=== PATIENT | male | born 1950 | race Caucasian/White ===

== ENCOUNTER 2023-01-13 23:38 | Emergency (ER) | payer OTHER ==
--- NOTE | 2023-01-14 01:43 | ER ---
Nurse's Notes [facility] Name: Benjamin Jackson Age: 72 yrs Sex: Male : 1950 Arrival Date: 01/13/2023 Time: 23:39 Bed 2 Private MD: Diagnosis: Hypertensive heart disease without heart failure-Poorly controlled Presentation: 01/14 00:12 Chief complaint: Patient states: I have been on blood pressure medications for 4 years. kd3 For a while it was making my blood pressure low so i was cutting them in half and my next prescription I was taking 25 mg. then i started just taking them when my blood pressure was high. Last night it started to be real high and its been all over the place. Coronavirus screen: Vaccine status: Patient reports being unvaccinated. Ebola Screen: No symptoms or risks identified at this time. Initial Sepsis Screen: Does the patient meet any 2 criteria? No. Patient's initial sepsis screen is negative. Does the patient have a suspected source of infection? No. Patient's initial sepsis screen is negative. Risk Assessment: Do you want to hurt yourself or someone else? Patient reports no desire to harm self or others. Onset of symptoms was January 14, 2023. 00:12 Method Of Arrival: Ambulatory kd3 00:12 Acuity: SANJIV 4 kd3 Triage Assessment: 00:15 General: Appears in no apparent distress. Behavior is calm, cooperative. Pain: Denies kd3 pain. Historical: - Allergies: 00:15 Iodine; kd3 - Home Meds: 00:15 losartan 25 mg oral tab [Active]; kd3 - PMHx: 00:15 Hernia; Kidney stones; Hypertensive disorder; kd3 - Immunization history:: Adult Immunizations up to date. - Social history:: Smoking status: unknown. Screenin:49 [facility] ED Fall Risk Assessment (Adult) History of falling in the last 3 months, jb4 including since admission No falls in past 3 months (0 pts) Confusion or Disorientation No (0 pts) Score/Fall Risk Level 0 - 2 = Low Risk Oriented to surroundings, Maintained a safe environment. Abuse screen: Denies threats or abuse. Nutritional screening: No deficits noted. Tuberculosis screening: No symptoms or risk factors identified. Assessment: 01:49 General: Appears in no apparent distress. comfortable, Behavior is calm, cooperative, jb4 appropriate for age. Pain: Denies pain. Neuro: Level of Consciousness is awake, alert, obeys commands, confused, Oriented to person, place, time, situation. Cardiovascular: Patient's skin is warm and dry. Respiratory: Airway is patent Respiratory effort is even, unlabored, Respiratory pattern is regular, symmetrical. GI: No signs and/or symptoms were reported involving the gastrointestinal system. : No signs and/or symptoms were reported regarding the genitourinary system. EENT: No signs and/or symptoms were reported regarding the EENT system. Derm: Skin is intact, Skin is pink, warm \T\ dry. Musculoskeletal: Circulation, motion, and sensation intact. Range of motion: intact in all extremities. Vital Signs: 00:11 BP 176 / 87; Pulse 66; Resp 17; Temp 98.2(O); Pulse Ox 100% ; Weight 57.15 kg; Height 5 kd3 ft. 6 in. (167.64 cm); Pain 0/10; 00:57 BP 175 / 91; Pulse 60; Resp 16; jb4 01:00 BP 159 / 81; Pulse 54; Resp 16 S; jb4 01:05 BP 162 / 81; Pulse 53; Resp 18 S; jb4 01:10 BP 158 / 84; Pulse 57; Resp 17 S; jb4 01:15 BP 150 / 82; Pulse 53; Resp 16 S; jb4 01:20 BP 154 / 79; Pulse 53; Resp 14 S; jb4 00:11 Body Mass Index 20.34 (57.15 kg, 167.64 cm) kd3 ED Course: 01/13 23:39 Patient arrived in ED. ja2 23:49 Alfonso Ac MD is Attending Physician. kdr 01/14 00:15 Triage completed. kd3 00:15 Arm band placed on left wrist. kd3 00:47 Solis Umanzor, TIFFANIE is Primary Nurse. jb4 01:49 Patient has correct armband on for positive identification. Bed in low position. Call jb4 light in reach. Side rails up X 1. NIBP on. 01:49 No provider procedures requiring assistance completed. Patient did not have IV access jb4 during this emergency room visit. Administered Medications: No medications were administered Medication: 01:49 VIS not applicable for this client. jb4 Outcome: 01:42 Discharge ordered by . kdr 01:49 Discharged to home ambulatory. jb4 01:49 Condition: stable 01:49 Discharge instructions given to patient, Instructed on discharge instructions, follow up and referral plans. medication usage, Demonstrated understanding of instructions, follow-up care, medications, Prescriptions given X 1. 01:51 Patient left the ED. jb4 Signatures: Alfonso Ac MD MD kdr Bryson, James RN RN jb4 Swetha Washington Kyli RN RN kd3
--- NOTE | 2023-01-14 01:43 | EDPHYS ---
Physician Documentation [facility] Name: Benjamin Jackson Age: 72 yrs Sex: Male : 1950 Arrival Date: 01/13/2023 Time: 23:39 Bed 2 Private MD: ED Physician Alfonso Ac HPI: 01/14 01:28 This 72 yrs old Male presents to ER via Ambulatory with complaints of High Blood kdr Pressure. 01:28 Patient presents to the ED concerned about his ongoing elevated blood pressure. He is kdr not symptomatic but takes his blood pressure several times a day. This evening he was noted to be elevated. Patient recently had received instructions to alter his medications. Patient has been on losartan for a number of years initially started 50 mg a day and then subsequently cut to 25 and then told to only take it when he needed it. Over the last few weeks, his blood pressure has been very labile and seemingly independent or/overly dependent on the blood pressure medication.. Onset: The symptoms/episode began/occurred gradually, 2 week(s) ago. Severity of symptoms: At their worst the symptoms were very mild mild in the emergency department the symptoms are unchanged. The patient has experienced similar episodes in the past, chronically. The patient has been recently seen by a physician: Patient is routinely seen at [facility] for [facility] medical care and they have been advising him on the control of his blood pressure and medication administration. Historical: - Allergies: 00:15 Iodine; kd3 - Home Meds: 00:15 losartan 25 mg oral tab [Active]; kd3 - PMHx: 00:15 Hernia; Kidney stones; Hypertensive disorder; kd3 - Immunization history:: Adult Immunizations up to date. - Social history:: Smoking status: unknown. ROS: 01:28 Constitutional: Negative for fever, chills, and weight loss, Eyes: Negative for injury, kdr pain, redness, and discharge, ENT: Negative for injury, pain, and discharge, Neck: Negative for injury, pain, and swelling, Cardiovascular: Negative for chest pain, palpitations, and edema, Respiratory: Negative for shortness of breath, cough, wheezing, and pleuritic chest pain, Abdomen/GI: Negative for abdominal pain, nausea, vomiting, diarrhea, and constipation, Back: Negative for injury and pain, : Negative for injury, bleeding, discharge, and swelling, MS/Extremity: Negative for injury and deformity, Skin: Negative for injury, rash, and discoloration, Neuro: Negative for headache, weakness, numbness, tingling, and seizure activity. Psych: Negative for depression, anxiety, suicide ideation, homicidal ideation, and hallucinations, Allergy/Immunology: Negative for hives, rash, and allergies, Endocrine: Negative for neck swelling, polydipsia, polyuria, polyphagia, and marked weight changes, Hematologic/Lymphatic: Negative for swollen nodes, abnormal bleeding, and unusual bruising. Exam: 01:28 Constitutional: This is a well developed, well nourished patient who is awake, alert, kdr and in no acute distress. Head/Face: Normocephalic, atraumatic. Eyes: Pupils equal round and reactive to light, extra-ocular motions intact. Lids and lashes normal. Conjunctiva and sclera are non-icteric and not injected. Cornea within normal limits. Periorbital areas with no swelling, redness, or edema. Neck: Trachea midline, no thyromegaly or masses palpated, and no cervical lymphadenopathy. Supple, full range of motion without nuchal rigidity, or vertebral point tenderness. No Meningismus. Chest/axilla: Normal chest wall appearance and motion. Nontender with no deformity. No lesions are appreciated. Cardiovascular: Regular rate and rhythm with a normal S1 and S2. No gallops, murmurs, or rubs. Normal PMI, no JVD. No pulse deficits. Respiratory: Lungs have equal breath sounds bilaterally, clear to auscultation and percussion. No rales, rhonchi or wheezes noted. No increased work of breathing, no retractions or nasal flaring. Abdomen/GI: Soft, non-tender, with normal bowel sounds. No distension or tympany. No guarding or rebound. No evidence of tenderness throughout. Back: No spinal tenderness. No costovertebral tenderness. Full range of motion. Skin: Warm, dry with normal turgor. Normal color with no rashes, no lesions, and no evidence of cellulitis. MS/ Extremity: Pulses equal, no cyanosis. Neurovascular intact. Full, normal range of motion. Neuro: Awake and alert, GCS 15, oriented to person, place, time, and situation. Cranial nerves II-XII grossly intact. Motor strength 5/5 in all extremities. Sensory grossly intact. Cerebellar exam normal. Normal gait. Psych: Awake, alert, with orientation to person, place and time. Behavior, mood, and affect are within normal limits. Vital Signs: 00:11 BP 176 / 87; Pulse 66; Resp 17; Temp 98.2(O); Pulse Ox 100% ; Weight 57.15 kg; Height 5 kd3 ft. 6 in. (167.64 cm); Pain 0/10; 00:57 BP 175 / 91; Pulse 60; Resp 16; jb4 01:00 BP 159 / 81; Pulse 54; Resp 16 S; jb4 01:05 BP 162 / 81; Pulse 53; Resp 18 S; jb4 01:10 BP 158 / 84; Pulse 57; Resp 17 S; jb4 01:15 BP 150 / 82; Pulse 53; Resp 16 S; jb4 01:20 BP 154 / 79; Pulse 53; Resp 14 S; jb4 00:11 Body Mass Index 20.34 (57.15 kg, 167.64 cm) kd3 MDM: 01:28 Data reviewed: vital signs, nurses notes. Consideration of Admission/Observation kdr Patient was admitted/placed on observation. The patient did not warrant admission. Management of patient was discussed with the following: Discussed with the patient. 01:42 Patient medically screened. kdr 01/14 00:33 Order name: EKG; Complete Time: 00:33 kdr Administered Medications: No medications were administered Disposition Summary: 01/14/23 01:42 Discharge Ordered Location: Home kdr Problem: new kdr Symptoms: have improved kdr Condition: Stable kdr Diagnosis - Hypertensive heart disease without heart failure - Poorly controlled kdr Followup: kdr - With: Private Physician - When: 2 - 3 days - Reason: If symptoms return, Further diagnostic work-up, Recheck today's complaints, Continuance of care, Re-evaluation by your physician Discharge Instructions: - Discharge Summary Sheet kdr - Hypertension, Adult, [id number] kdr - How to Take Your Blood Pressure, [id number] kdr Forms: - Medication Reconciliation Form kdr - Thank You Letter kdr Prescriptions: - Lisinopril 10 mg Oral Tablet - take 1 tablet by ORAL route once daily; 20 tablet; Refills: 0, Product kdr Selection Permitted Signatures: Dispatcher [employer] EDMT Rittger, Alfonso, MD MD kdr Misty, Emily, RN RN kd3 Corrections: (The following items were deleted from the chart) 00:54 00:33 Cardiac monitoring ordered. [facility] jb4 00: 00:33 EKG - Nurse/Tech ordered. [facility] jb4 00:33 IV Saline Lock ordered. [facility] jb4 00:33 Labs collected and sent ordered. [facility] 00:33 O2 Sat Monitoring ordered. [facility] 00:33 Oxygen Per Protocol ordered. [facility] 00:33 Chest Single View+RAD.RAD.BRZ ordered. EDMS EDMS 01: 00:33 BASIC METABOLIC PANEL+C.LAB.BRZ ordered. EDMS EDMS 01: 00:33 CBC+H.LAB.BRZ ordered. EDMS EDMS 01: 00:33 PROBNP+C.LAB.BRZ ordered. EDMS EDMS 01: 00:33 Troponin High Sensitivity+C.LAB.BRZ ordered. EDMS EDMS
[2023-01-14 02:08] VITALS: TEMP 98.2; O2SAT 100
[2023-01-14 02:14] VITALS: BP 154/79
== END 2023-01-14 01:51 | disposition home or self-care (01) ==
LOC: ER 23:38
DX: I11.9 Hypertensive heart disease without heart failure (principal); I10 Essential (primary) hypertension; Z91.048 Other nonmedicinal substance allergy status
CPT/HCPCS: 99282

== ENCOUNTER 2024-04-30 19:35 | Observation (INO) | payer OTHER ==
[2024-04-30 20:15] LABS: Absolute Eosinophils 0.2 K/uL (0-0.5); Absolute Lymphocytes (CBC) 1.9 K/uL (0.7-4.9); Absolute Monocytes 0.4 K/uL (0.1-1.3); Absolute Neutrophil 3.4 K/uL (1.8-8.0); Basophils % 0.4 % (0-1.3); Eosinophils % 3.9 % (0-4.4); Hematocrit 35.8 % (39.6-49.0); Lymphocytes % 32.2 % (15.3-44.8); MCH 32.3 pg (27.0-35.0); MCHC 33.4 g/dL (32.0-36.0); MCV 96.6 fL (80-100); MPV 6.9 fL (7.6-11.3); Monocytes % 6.7 % (3.3-12.3); Neutrophils % 56.8 % (41.7-73.7); Platelets 199 thou/uL (152-406); Red Cell Distribution Width 14.5 % (12.1-15.2)
[2024-04-30 21:02] LABS: AST/SGOT 20 U/L (15-37); Albumin 3.6 g/dL (3.4-5.0); Albumin/Globulin Ratio 0.9 (1.1-1.8); Alkaline Phosphatase 59 U/L (45-117); Anion Gap 5.9 mEq/L (5.0-15.0); BUN Blood Urea Nitrogen 16 mg/dL (7-18); Bicarbonate 27 mEq/L (21-32); Bilirubin Total 0.4 mg/dL (0.2-1.0); Globulin 3.8 g/dL (2.3-3.5); Glomerular Filtration Rate 62 ml/min (=/>90); Glucose Level 144 mg/dL (74-106); Magnesium 2.1 mg/dL (1.6-2.4); Potassium 3.9 mEq/L (3.5-5.1); Protein, Total 7.4 g/dL (6.4-8.2); Sodium Level 134 mEq/L (136-145)
[2024-04-30 21:03] LABS: ALT/SGPT < 14 U/L (16-61); Bilirubin Direct < 0.2 mg/dL (0-0.2); Bilirubin Indirect, Calculated 0.2 mg/dL (0.2-0.8)
[2024-04-30 21:09] LABS: Troponin High Sensitivity 124.6 pg/mL (<58.9)
--- NOTE | 2024-04-30 21:20 | RAD REPORT ---
EXAM DESCRIPTION: [place] Single View04/30/2024 8:59 pm CLINICAL HISTORY: Arrythmia COMPARISON: none FINDINGS: The lungs appear clear of acute infiltrate. The heart is normal size IMPRESSION: No acute abnormalities displayed
--- NOTE | 2024-04-30 22:38 | EDPHYS ---
Physician Documentation [facility] Name: Benjamin Jackson Age: 73 yrs Sex: Male : 1950 Arrival Date: 04/30/2024 Time: 19:35 Bed 18 Private MD: ED Physician Isac Rollins HPI: 04/30 20:01 This 73 yrs old Male presents to ER via Ambulatory with complaints of Irregular Pulse, rt High Blood Pressure. 20:01 Patient presents to the ED with reports of an irregular pulse. The patient states that rt his blood pressure cuff told him that he had a regular pulse, states that he can feel occasional skipped beats when he was feeling his pulse. Denies any chest pain or shortness of breath or other acute symptoms. Symptoms are mild in severity, no other aggravating alleviating factors.. Historical: - Allergies: 19:43 Iodine; as6 - PMHx: 19:43 Hernia; Hypertensive disorder; Kidney stones; as6 - PSHx: 19:43 leg (Kidney stones); as6 - Immunization history:: Adult Immunizations up to date. - Infectious Disease History:: Denies. - Social history:: Smoking status: Patient reports the use of cigarette tobacco products, cigars. - Family history:: not pertinent. ROS: 20:01 Constitutional: Negative for fever, chills, and weight loss, Respiratory: Negative for rt shortness of breath, cough, wheezing, and pleuritic chest pain, Abdomen/GI: Negative for abdominal pain, nausea, vomiting, diarrhea, and constipation, MS/Extremity: Negative for injury and deformity, Skin: Negative for injury, rash, and discoloration, Neuro: Negative for headache, weakness, numbness, tingling, and seizure, Psych: Negative for depression, anxiety, suicide ideation, homicidal ideation, and hallucinations, 20:01 Cardiovascular: Positive for palpitations, Negative for chest pain, Exam: 20:01 Constitutional: This is a well developed, well nourished patient who is awake, alert, rt and in no acute distress. Head/Face: Normocephalic, atraumatic. Chest/axilla: Normal chest wall appearance and motion. Nontender with no deformity. No lesions are appreciated. Cardiovascular: Regular rate and rhythm with a normal S1 and S2. No gallops, murmurs, or rubs. Normal PMI, no JVD. No pulse deficits. Respiratory: Lungs have equal breath sounds bilaterally, clear to auscultation and percussion. No rales, rhonchi or wheezes noted. No increased work of breathing, no retractions or nasal flaring. Abdomen/GI: Soft, non-tender, with normal bowel sounds. No distension or tympany. No guarding or rebound. No evidence of tenderness throughout. Skin: Warm, dry with normal turgor. Normal color with no rashes, no lesions, and no evidence of cellulitis. MS/ Extremity: Pulses equal, no cyanosis. Neurovascular intact. Full, normal range of motion. Neuro: Awake and alert, GCS 15, oriented to person, place, time, and situation. Cranial nerves II-XII grossly intact. Motor strength 5/5 in all extremities. Sensory grossly intact. Cerebellar exam normal. Normal gait. Psych: Awake, alert, with orientation to person, place and time. Behavior, mood, and affect are within normal limits. 20:06 ECG was reviewed by the Attending Physician. rt Vital Signs: 19:44 BP 154 / 72; Pulse 67; Resp 18 S; Temp 98.1(TE); Pulse Ox 100% on R/A; Weight 56.25 kg as6 (R); Height 5 ft. 6 in. (R); Pain 0/10; 21:30 BP 179 / 83; Pulse 53; Resp 14 S; Pulse Ox 100% on R/A; jw7 22:30 BP 160 / 86; Pulse 56; Resp 12 S; Pulse Ox 100% on R/A; jw7 23:18 BP 157 / 85; Pulse 57; Resp 12 S; Pulse Ox 100% on R/A; jw7 19:44 Body Mass Index 20.01 (56.25 kg, 167.64 cm) as6 19:44 Pain Scale: Adult as6 MDM: 19:55 Patient medically screened. rt 22:37 Differential diagnosis: Dysrhythmia, PVCs, ACS. Data reviewed: vital signs, nurses rt notes, lab test result(s), EKG, radiologic studies. Consideration of Admission/Observation Patient was admitted/placed on observation. Management of patient was discussed with the following: Hospitalist: Agrees to admit. Independent interpretation of the following test(s) in the Emergency Department X-Ray: My interpretation is No consolidation seen on interpretation of x-ray images. Test considered but Not performed: CT: Low suspicion for PE, CT angiogram not indicated. Care significantly affected by the following chronic conditions: Hypertension. Counseling: I had a detailed discussion with the patient and/or guardian regarding the historical points, exam findings, and any diagnostic results supporting the discharge/admit diagnosis, lab results, radiology results, the need for further work-up and treatment in the hospital. Response to treatment: There is no appreciated change of the patient's symptoms at this time. 04/30 19:56 Order name: Basic Metabolic Panel; Complete Time: 21:13 rt 04/30 19:56 Order name: CBC with Diff; Complete Time: 21:13 rt 04/30 19:56 Order name: LFT's; Complete Time: 21:13 rt 04/30 19:56 Order name: Magnesium; Complete Time: 21:13 rt 04/30 19:56 Order name: Troponin HS; Complete Time: 21:13 rt 04/30 22:47 Order name: Urinalysis w/ reflexes EDW[facility] 04/30 22:47 Order name: Troponin High Sensitivity [facility] 04/30 22:47 Order name: Troponin High Sensitivity [facility] 04/30 22:47 Order name: Troponin High Sensitivity [facility] 04/30 22:47 Order name: Troponin High Sensitivity [facility] 04/30 19:56 Order name: XRAY Chest (1 view); Complete Time: 21:22 rt 04/30 22:47 Order name: CONS Physician Consult [facility] 04/30 19:56 Order name: Cardiac monitoring; Complete Time: 21:54 rt 04/30 19:56 Order name: EKG - Nurse/Tech; Complete Time: 20:06 rt 04/30 19:56 Order name: IV Saline Lock; Complete Time: 20:06 rt 04/30 19:56 Order name: Labs collected and sent; Complete Time: 20:06 rt 04/30 19:56 Order name: O2 Per Protocol; Complete Time: 21:54 rt 04/30 19:56 Order name: O2 Sat Monitoring; Complete Time: 21:54 rt EC:06 Rate is 70 beats/min. Rhythm is regular, Normal Sinus Rhythm with Unifocal PVCs. QRS rt [place] is Normal. MI interval is normal. QRS interval is normal. QT interval is normal. No Q waves. T waves are Normal. No ST changes noted. Administered Medications: 19:56 CANCELLED (Patient Refused): ns 0.9% 1000 ml IV at 1000 ml once rt 19:56 CANCELLED (Patient Refused): ondansetron 4 mg IVP once; over 2 minutes rt Disposition Summary: 04/30/24 22:37 Hospitalization Ordered Notes: Hospitalization Status: Observation rt Provider: Philip Medrano rt Location: Telemetry/MedSurg (observation) rt Condition: Stable rt Problem: new rt Symptoms: are unchanged rt Bed/Room Type: Standard rt Room Assignment: 401(04/30/24 22:58) cg Diagnosis - Premature ventricular complexes rt - Elevated troponin rt Forms: - Medication Reconciliation Form rt - SBAR form rt - Leadership Thank You Letter rt Signatures: Dispatcher [employer] Che Liao, RN RN Gabriel Velez RN RN as6 Isac Rollins MD MD rt Corrections: (The following items were deleted from the chart) 19:56 19:56 NS 0.9% IV 1000 ml IV at 1000 ml once ordered. rt rt 19:56 19:56 Ondansetron IVP 4 mg IVP once; over 2 minutes ordered. rt rt 22:58 22:37 rt cg
--- NOTE | 2024-04-30 22:38 | ER ---
Nurse's Notes [facility] Name: Benjamin Jackson Age: 73 yrs Sex: Male : 1950 Arrival Date: 04/30/2024 Time: 19:35 Bed 18 Private MD: Diagnosis: Premature ventricular complexes;Elevated troponin Presentation: 04/30 19:44 Chief complaint: Patient states: blood pressure machine at home said his pulse was as6 irregular and pt states he can feel it. Coronavirus screen: At this time, the client does not indicate any symptoms associated with coronavirus-19. Ebola Screen: No symptoms or risks identified at this time. Initial Sepsis Screen: Does the patient meet any 2 criteria? No. Patient's initial sepsis screen is negative. Does the patient have a suspected source of infection? No. Patient's initial sepsis screen is negative. Risk Assessment: Do you want to hurt yourself or someone else? Patient reports no desire to harm self or others. Onset of symptoms was April 30, 2024. 19:44 Acuity: SANJIV 3 as6 19:44 Method Of Arrival: Ambulatory as6 Triage Assessment: 19:46 General: Appears in no apparent distress. comfortable, Behavior is calm, cooperative. as6 Pain: Denies pain. Cardiovascular: Reports palpitations. Historical: - Allergies: 19:43 Iodine; as6 - PMHx: 19:43 Hernia; Hypertensive disorder; Kidney stones; as6 - PSHx: 19:43 leg (Kidney stones); as6 - Immunization history:: Adult Immunizations up to date. - Infectious Disease History:: Denies. - Social history:: Smoking status: Patient reports the use of cigarette tobacco products, cigars. - Family history:: not pertinent. Screenin:10 [facility] ED Fall Risk Assessment (Adult) History of falling in the last 3 months, jw7 including since admission No falls in past 3 months (0 pts) Confusion or Disorientation No (0 pts) Intoxicated or Sedated No (0 pts) Impaired Gait No (0 pts) Mobility Assist Device Used No (0 pt) Altered Elimination No (0 pt) Score/Fall Risk Level 0 - 2 = Low Risk Oriented to surroundings, Maintained a safe environment, Educated pt \\T\\ family on fall prevention, incl call for assistance when getting out of bed. Abuse screen: Denies threats or abuse. Denies injuries from another. Nutritional screening: No deficits noted. Tuberculosis screening: No symptoms or risk factors identified. Assessment: 21:10 General: Appears in no apparent distress. comfortable, Behavior is calm, cooperative, jw7 appropriate for age. Pain: Denies pain. Neuro: Level of Consciousness is awake, alert, obeys commands, Oriented to person, place, time, situation. Cardiovascular: Heart tones S1 S2 present Capillary refill < 3 seconds Clubbing of nail beds is absent JVD is absent Patient's skin is warm and dry. Respiratory: Airway is patent Trachea midline Respiratory effort is even, unlabored, Respiratory pattern is regular, symmetrical. GI: Abdomen is flat, non-distended, Bowel sounds present X 4 quads. Abd is soft and non tender X 4 quads. : No deficits noted. No signs and/or symptoms were reported regarding the genitourinary system. EENT: No deficits noted. No signs and/or symptoms were reported regarding the EENT system. Derm: Skin is healthy with good turgor, Skin is dry, Skin is normal, Skin temperature is warm Skin tears to left forearm, pt states "those are from a tree that slide across my arm". Musculoskeletal: Circulation, motion, and sensation intact. Range of motion: intact in all extremities. 22:00 Reassessment: Patient appears in no apparent distress at this time. No changes from jw7 previously documented assessment. Patient and/or family updated on plan of care and expected duration. Pain level reassessed. Patient is alert, oriented x 3, equal unlabored respirations, skin warm/dry/pink. 23:00 Reassessment: Patient appears in no apparent distress at this time. No changes from jw7 previously documented assessment. Patient and/or family updated on plan of care and expected duration. Pain level reassessed. Patient is alert, oriented x 3, equal unlabored respirations, skin warm/dry/pink. Vital Signs: 19:44 BP 154 / 72; Pulse 67; Resp 18 S; Temp 98.1(TE); Pulse Ox 100% on R/A; Weight 56.25 kg as6 (R); Height 5 ft. 6 in. (R); Pain 0/10; 21:30 BP 179 / 83; Pulse 53; Resp 14 S; Pulse Ox 100% on R/A; jw7 22:30 BP 160 / 86; Pulse 56; Resp 12 S; Pulse Ox 100% on R/A; jw7 23:18 BP 157 / 85; Pulse 57; Resp 12 S; Pulse Ox 100% on R/A; jw7 19:44 Body Mass Index 20.01 (56.25 kg, 167.64 cm) as6 19:44 Pain Scale: Adult as6 ED Course: 19:40 Patient arrived in ED. jj6 19:44 Arm band placed on right wrist. as6 19:45 Isac Rollins MD is Attending Physician. rt 19:46 Triage completed. as6 20:06 Basic Metabolic Panel Sent. as6 20:06 CBC with Diff Sent. as6 20:06 LFT's Sent. as6 20:06 Magnesium Sent. as6 20:06 Troponin HS Sent. as6 20:06 Inserted saline lock: 20 gauge in right forearm, using aseptic technique. Blood as6 collected. 21:00 XRAY Chest (1 view) In Process Unspecified. EDMS 21:10 Patient has correct armband on for positive identification. Bed in low position. Call [facility] in reach. Provided Education on: Use of Call LIght. 21:14 Jo-Ann Aguirre, RN is Primary Nurse. jw7 22:37 Philip Medrano MD is Hospitalizing Provider. rt 23:16 No provider procedures requiring assistance completed. Patient admitted, IV remains in jw7 place. Administered Medications: 19:56 CANCELLED (Patient Refused): ns 0.9% 1000 ml IV at 1000 ml once rt 19:56 CANCELLED (Patient Refused): ondansetron 4 mg IVP once; over 2 minutes rt Medication: 23:17 VIS not applicable for this client. jw7 Outcome: 22:37 Decision to Hospitalize by Provider. rt 23:16 Admitted to Tele accompanied by nurse, via wheelchair, room 401, jw7 23:16 Condition: stable 23:16 Instructed on the need for admit, Demonstrated understanding of instructions, 23:33 Patient left the ED. as6 Signatures: Dispatcher [employer] EDMS Kamar AnniaGabriel Olivares RN RN as6 Jo-Ann Aguirre RN RN jw7 Isac Rollins MD MD rt
[2024-04-30] MEDS ORDERED: ONDANSETRON 4 MG/2 ML VIAL IV PRN (22:41)
[2024-04-30] MEDS ORDERED: ACETAMINOPHEN 325 MG TABLET PO PRN (22:41)
--- NOTE | 2024-04-30 22:41 | P.HP ---
Certification for Inpatient Patient admitted to: Observation With expected LOS: <2 Midnights Practitioner: I am a practitioner with admitting privileges, knowledge of patient current condition, hospital course, and medical plan of care. Services: Services provided to patient in accordance with Admission requirements found in Title 42 Section 412.3 of the Code of Federal Regulations Patient History Date of Service: 04/30/24 Reason for admission: Elevated BP., Irregular Heart rhythm History of Present Illness: 73 yrs old Male with past medical history of hypertension and nephrolithiasis presents to ER via Ambulatory with complaints of Irregular Pulse, High Blood Pressure. He has a diary where he keeps his blood pressure records every day. Today he noticed that the patient has a irregular heartbeat and he noticed skipped beats as well and was prompted him to come to ER The patient states that his blood pressure cuff told him that he had a regular pulse, states that he can feel occasional skipped beats when he was feeling his pulse. Denies any chest pain or shortness of breath No fever or chills No nausea vomiting or diarrhea Patient was assessed in the ER and found to have NSTEMI and was admitted for further management Allergies Iodine-Iodine Containing Allergy (Uncoded 08/18/15 00:49) Unknown Home medications list reviewed: Yes - Past Medical/Surgical History Past Medical History: Reviewed- Non-Contributory -: Hypertension on lisinopril Past Surgical History: Reviewed- Non-Contributory - Family History Family History: Reviewed- Non-Contributory - Social History Smoking Status: Never smoker Review of Systems 10-point ROS is otherwise unremarkable Physical Examination - Vital Signs Temperature: 97.8 F Blood Pressure: 110/72 Pulse: 78 Respirations: 18 Pulse Ox (%): 94 - Physical Exam General: Alert, In no apparent distress, Oriented x3 HEENT: Atraumatic, Normocephalic Neck: Supple, 2+ carotid pulse no bruit Respiratory: Clear to auscultation bilaterally, Normal air movement Cardiovascular: Regular rate/rhythm, Normal S1 S2, Abnormal S3 Capillary refill: <2 Seconds Gastrointestinal: Soft and benign, W/out succussion splash, W/out hepatosp lenomegaly Musculoskeletal: No clubbing, No swelling Integumentary: No rashes Neurological: Normal speech, Normal strength at 5/5 x4 extr, Cranial nerves 3-12 intact, Normal reflexes 2+ Lymphatics: No axilla or inguinal lymphadenopathy - Studies Laboratory Data (last 24 hrs) 04/30/24 04/30/24 20:04 20:04 WBC 6.00 Hgb 12.0 L Hct 35.8 L Plt Count 199 Sodium 134 L Potassium 3.9 BUN 16 Creatinine 1.23 Glucose 144 H Magnesium 2.1 Total Bilirubin 0.4 AST 20 ALT < 14 L Alkaline Phosphatase 59 Assessment and Plan - Problems (Diagnosis) (1) NSTEMI (non-ST elevated myocardial infarction) Current Visit: Yes Status: Acute Plan: NSTEMI Will trend cardiac enzymes Will monitor telemetry Started on aspirin and statin EKG did not show any acute changes sinus ST-T suggestive of ischemia Patient denies any chest pain Will get an echocardiogram Cardiology consult Arrhythmia Noted to have multiple PVCs Started beta-day if blood pressure allows Monitor closely on telemetry Cardiology evaluation Hyponatremia Electrolytes monitor and replace accordingly Hypertension Antihypertensives titrated Continue home medications and titrate as needed Anemia of chronic disease Monitor H&H closely No overt bleeding at this time GI/DVT prophylaxis Advanced directive full code Discharge Plan: Home Plan to discharge in: 48 Hours - Advance Directives Does patient have a Living Will: No Does patient have a Durable POA for Healthcare: No Time Spent Managing Pts Care (In Minutes): 48
[2024-05-01] MEDS: HYDRALAZINE HCL 20 MG/ML VIAL IV PRN (01:19)
[2024-05-01] MEDS: ENOXAPARIN 40 MG/0.4 ML SQ SCH (09:00)
[2024-05-01] MEDS: METOPROLOL TAR 25 MG TAB PO SCH (10:10)
[2024-05-01] MEDS: ENOXAPARIN 60 MG/0.6 ML SQ SCH (10:10)
[2024-05-01] MEDS: ASPIRIN EC 81 MG TAB PO SCH (10:10)
--- NOTE | 2024-05-01 10:33 | P.CNS ---
Date of Consult: 05/01/24 Chief Complaint: Elevated BP., Irregular Heart rhythm History of Present Illness: Patient with PMH of hypertension, presented with high BP and irregular heart rate, patient denies having any chest pain, no palpitations, report some MACE but he is very active, no syncope, report history of hiatal hernia. Allergies Iodine-Iodine Containing Allergy (Uncoded 08/18/15 00:49) Unknown Home Medications: Lisinopril [Zestril] 10 mg PO DAILY 05/01/24 - Past Medical/Surgical History Diabetic: No -: Hypertension on lisinopril -: kidney stones -: hernia - Social History Smoking Status: Unknown if ever smoked Place of Residence: Home Review of Systems 10-point ROS is otherwise unremarkable Physical Examination Temp Pulse Resp BP Pulse Ox 97.5 F 52 16 140/69 99 05/01/24 08:00 05/01/24 10:10 05/01/24 08:00 05/01/24 10:10 05/01/24 08:00 General: Alert, In no apparent distress HEENT: Atraumatic, PERRLA, Mucous membr. moist/pink, EOMI, Sclerae nonicteric Neck: Supple, 2+ carotid pulse no bruit, No LAD, Without JVD or thyroid abnormality Respiratory: Clear to auscultation bilaterally, Normal air movement Cardiovascular: Regular rate/rhythm, Normal S1 S2 Gastrointestinal: Normal bowel sounds, No tenderness Musculoskeletal: No tenderness Integumentary: No rashes Neurological: Normal gait, Normal speech, Normal tone, Normal affect Lymphatics: No axilla or inguinal lymphadenopathy Laboratory Data (last 24 hrs) 04/30/24 04/30/24 20:04 20:04 WBC 6.00 Hgb 12.0 L Hct 35.8 L Plt Count 199 Sodium 134 L Potassium 3.9 BUN 16 Creatinine 1.23 Glucose 144 H Magnesium 2.1 Total Bilirubin 0.4 AST 20 ALT < 14 L Alkaline Phosphatase 59 - Problems (1) HTN (hypertension) Current Visit: Yes Status: Acute Plan: agree with Lopressor 25 mg po BID D/C home lisinopril (2) Irregular heart beat Current Visit: Yes Status: Acute Plan: Tele shows sinus rhythm, advised patient that he will need night monitor as outpatient, he was provided with office contact to arrange that. (3) NSTEMI (non-ST elevated myocardial infarction) Current Visit: Yes Status: Acute Plan: Patient denies having any active chest pain, troponin mild elevated but no significant delta, most likely type 2 NE from high BP. Patient need to follow up with cardiology for outpatient stress test.
[2024-05-01 12:05] VITALS: BP 125/69; TEMP 98.1
--- NOTE | 2024-05-01 12:22 | P.DS ---
Admission Date: 04/30/24 Discharge Date: 05/01/24 Disposition: ROUTINE DISCHARGE Discharge Condition: FAIR Reason for Admission: Elevated BP., Irregular Heart rhythm Brief History of Present Illness: Patient is 73 years of age admitted with irregular heartbeat and hypertension and a non-STEMI Hospital Course: Patient admitted for evaluation he denied any chest pain complaint of irregular pulse rate ectopic rhythms eyes any chest pain Seen by cardiology recommendation/patient's condition remained stable and was discharged commendations as per below Problems (1) HTN (hypertension) Current Visit: Yes Status: Acute Plan: agree with Lopressor 25 mg po BID D/C home lisinopril (2) Irregular heart beat Current Visit: Yes Status: Acute Plan: Tele shows sinus rhythm, advised 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 (3) NSTEMI (non-ST elevated myocardial infarction) Current Visit: Yes Status: Acute Plan: Patient denies having any active chest pain, troponin mild elevated but no significant delta, most likely type 2 MS from high BP. Patient need to follow up with cardiology for outpatient stress test. [place]06 Rate is 70 beats/min. Rhythm is regular, Normal Sinus Rhythm with Unifocal PVCs. QRS rt EMERGENCY DEPARTMENT (Continued) NAME: [facility] CC: Nas Mueller MD; Hamzah Medrano DO; Isac Rollins EMERGENCY DEPARTMENT [facility] / Report: [id number] Page 4of 4 Ralph is Normal. MD interval is normal. QRS interval is normal. QT interval is normal. No Q waves. T waves are Normal. No ST changes noted. Vital Signs/Physical Exam: Temp Pulse Resp BP Pulse Ox 98.1 F 49 L 16 125/69 99 05/01/24 12:00 05/01/24 12:00 05/01/24 12:00 05/01/24 12:00 05/01/24 12:00 Laboratory Data at Discharge: WBC 6.00 thou/uL (4.3-10.9) 04/30/24 20:04 Hgb 12.0 g/dL (13.6-17.9) L 04/30/24 20:04 Hct 35.8 % (39.6-49.0) L 04/30/24 20:04 Plt Count 199 thou/uL (152-406) 04/30/24 20:04 Sodium 134 mEq/L (136-145) L 04/30/24 20:04 Potassium 3.9 mEq/L (3.5-5.1) 04/30/24 20:04 BUN 16 mg/dL (7-18) 04/30/24 20:04 Creatinine 1.23 mg/dL (0.70-1.30) 04/30/24 20:04 Glucose 144 mg/dL (74-106) H 04/30/24 20:04 Magnesium 2.1 mg/dL (1.6-2.4) 04/30/24 20:04 Total Bilirubin 0.4 mg/dL (0.2-1.0) 04/30/24 20:04 AST 20 U/L (15-37) 04/30/24 20:04 ALT < 14 U/L (16-61) L 04/30/24 20:04 Alkaline Phosphatase 59 U/L (45-117) 04/30/24 20:04 Triglycerides 113 mg/dL (<150) 05/01/24 09:34 Cholesterol 210 mg/dL (<200) H 05/01/24 09:34 HDL Cholesterol 51 mg/dL (40-60) 05/01/24 09:34 Cholesterol/HDL Ratio 4.12 05/01/24 09:34 Home Medications: Metoprolol Tartrate [Lopressor*] 25 mg PO BID 6AM 6PM 30 Days #60 tab 05/01/24 New Medications: Metoprolol Tartrate [Lopressor*] 25 mg PO BID 6AM 6PM 30 Days #60 tab Physician Discharge Instructions: / Stop lisinopril Take over the counter baby aspirin/ Needs to follow up with cardiology for stres test Cardiolgy rec Problems (1) HTN (hypertension) Current Visit: Yes Status: Acute Plan: agree with Lopressor 25 mg po BID D/C home lisinopril (2) Irregular heart beat Current Visit: Yes Status: Acute Plan: Tele shows sinus rhythm, advised 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 (3) NSTEMI (non-ST elevated myocardial infarction) Current Visit: Yes Status: Acute Plan: Patient denies having any active chest pain, troponin mild elevated but no significant delta, most likely type 2 MS from high BP. Patient need to follow up with cardiology for outpatient stress test. [id number]: 20:06 Rate is 70 beats/min. Rhythm is regular, Normal Sinus Rhythm with Unifocal PVCs. QRS rt EMERGENCY DEPARTMENT (Continued) NAME: [facility] LANDERS CC: Nas Mueller MD; Hamzah Medrano DO; Isac Rollins EMERGENCY DEPARTMENT [facility] / Report: [id number] Page 4of 4 Ralph is Normal. MD interval is normal. QRS interval is normal. QT interval is normal. No Q waves. T waves are Normal. No ST changes noted. Diet: Regular Activity: Ad french [facility]: [facility] [Primary Care Provider] -
[2024-05-01 13:09] VITALS: O2SAT 99
--- NOTE | 2024-05-01 14:07 | EKG ---
Test Date: 2024-04-30 Test Time: 19:55:27 [place] Helper: MEASUREMENT RESULTS: Intervals: Rate: 70 TX: 148 QRSD: 88 QT: 394 QTc: 425 [place]: P: 88 TX: 148 QRS: 96 T: 79 INTERPRETIVE STATEMENTS: Sinus rhythm with frequent premature ventricular complexes Otherwise normal ECG No previous ECG available for comparison Electronically Signed On 05-01-24 14:04:47 CDT by Tor Vigil
[2024-05-01] MEDS ORDERED: ATORVASTATIN 40 MG TAB PO SCH ×2 (21:00)
== END 2024-05-01 13:29 | disposition home or self-care (01) ==
LOC: ER 19:35 → ERHOLD 22:41 → 4TH 23:30
PROVIDERS: ADMIT Family Medicine; ATTEND Internal Medicine Sleep Medicine
DX: I21.4 Non-ST elevation (NSTEMI) myocardial infarction (principal); I49.9 Cardiac arrhythmia, unspecified; I10 Essential (primary) hypertension; E87.1 Hypo-osmolality and hyponatremia; D63.8 Anemia in other chronic diseases classified elsewhere; F17.210 Nicotine dependence, cigarettes, uncomplicated
CPT/HCPCS: 93005; 85025; 80048; 36415; 83735; 80061; 80076; 84484 ×3; 71045; 94760; 99285; J1650; J0360; G0378

== ENCOUNTER 2024-07-02 13:59 | Emergency (ER) | payer OTHER ==
--- OUTSIDE RECORDS SUMMARY | 2024-07-02 14:02 | XMS REPORT | Continuity of Care Document ---
Author Name Unknown Address [address] [facility] [address] [place] [address] [facility] thconnect Address [address] [facility] [place] [address] Care Team Providers Care Business Line Manager Name Role Phone Nathaly Zaragoza Attending Clinician Nathaly Nuñez Admitting Clinician Ovidio lowery Payers Payer Name Policy Type Policy Number Effective Date Expirati on Date Source Allergies, Adverse Reactions, Alerts Allergy Name Allergy Type Status Severity Reaction(s) Onset Date Inactive Date Treating Clinician Comments Source iodine DA Active U HIVES 06-22 00:00: 00 [facility] Procedures Procedure Date / Time Performed Performing Clinicia n Source [id number] 2024-06-26 00:00:00 [facility] [id number] 2024-06-26 00:00:00 [facility] [id number] 2024-06-26 00:00:00 [facility] [id number] 2024-06-26 00:00:00 [facility] [id number] 2024-06-26 00:00:00 [facility] [id number] 2024-06-26 00:00:00 [facility] Encounters Start Date/Time End Date/Time Encounter Type Admission Type Attending Clinicians Care Facility Care Department Encounter ID Source 2024-06-22 20:13:00 2024-06-28 12:42:00 Inpatient Nathaly Ruvalcaba [facility]01 [id number] [facility] Results Test Description Test Time Test Comments Results Result Co mments Source CBC W/AUTO [id number] 05:43:00* Test Item Value Reference Range Interpretation Comme nts WHITE BLOOD CELL (test code = WBC) 10.2 x10 3/uL 4.5-11.0 RED BLOOD CELL (test code = RBC) 3.23 x10 6/uL 4.00-5.60 L HEMOGLOBIN (test code = HGB) 10.5 g/dL 12.5-16.9 L HEMATOCRIT (test code = HCT) 32.2 % 37.5-50.7 L MEAN CELL VOLUME (test code = MCV) 99.7 fL 81.0-99.0 H MEAN CELL HGB (test code = MCH) 32.5 pg 27.0-33.0 N MEAN CELL HGB CONCETRATION (test code = MCHC) 32.6 g/dL 33.0-37.0 L RED CELL DISTRIBUTION WIDTH CV (test code = RDW) 13.8 % 11.5-14.5 N RED CELL DISTRIBUTION WIDTH SD (test code = RDW-SD) 50.5 fL 37.0-54.0 N PLATELET COUNT (test code = PLT) 193 x10 3/uL 150-400 N MEAN PLATELET VOLUME (test c ode = MPV) 9.0 fL 7.0-9.0 N NEUTROPHIL % (test code = NT%) 83.5 % 56.0-77.0 H IMMATURE GRANULOCYTE % (test code = IG%) 0.5 % 0.0-2.0 N LYMPHOCYTE % (test code = LY%) 10.7 % 14.0-32.0 L MONOCYTE % (test code = MO%) 5.2 % 4.8-9.0 N EOSINOPHIL % (test code = EO%) 0.0 % 0.3-3.7 L BASOPHIL % (test code = BA%) 0.1 % 0.0-2.0 N NUCLEATED RBC % (test code = NRBC%) 0.0 % 0-0 N NEUTROPHIL # (test code = NT#) 8.52 x10 3/uL 2.0-7.6 H IMMATURE GRANULOCYTE # (test code = IG#) 0.05 x10 3/uL 0.00-0.03 H LYMPHOCYTE # (test code = LY#) 1.09 x10 3/uL 1.0-3.8 N MONOCYTE # (test code = MO#) 0.53 x10 3/uL 0.1-0.8 N EOSINOPHIL # (test code = EO#) 0.00 x10 3/uL 0.0-0.2 N BASOPHIL # (test code = BA#) 0.01 x10 3/uL 0.0-0.2 N NUCLEATED RBC # (test code = NRBC#) 0.00 x10 3/uL 0.0-0.1 N MANUAL DIFF REQUIRED (test c ode = MDIFF) NO COAGULATION TIME [id number] 14:40:00* Test Item Value Reference Range Interpretation Comme nts COAGULATION TIME ACTIVATED (test code = ACT) 250 SECONDS Performed by certified shook machine operator at [facility] COAGULATION TIME [id number] 14:40:00* Test Item Value Reference Range Interpretation Comme nts COAGULATION TIME ACTIVATED (test code = ACT) 241 SECONDS Performed by certified shook machine operator at [facility] COAGULATION TIME [id number] 10:30:00* Test Item Value Reference Range Interpretation Comme nts COAGULATION TIME ACTIVATED (test code = ACT) 233 SECONDS Performed by certified shook machine operator at [facility] COAGULATION TIME [id number] 09:56:00* Test Item Value Reference Range Interpretation Comme nts COAGULATION TIME ACTIVATED (test code = ACT) 282 SECONDS Performed by certified shook machine operator at [facility] COAGULATION TIME [id number] 09:46:00* Test Item Value Reference Range Interpretation Comme nts COAGULATION TIME ACTIVATED (test code = ACT) 186 SECONDS Performed by certified shook machine operator at [facility] BASIC METABOLIC [id number] 05:02:00* Test Item Value Reference Range Interpretation Comme nts SODIUM (test code = NA) 134 mEq/L 134-147 N POTASSIUM (test code = K) 4.2 mEq/L 3.4-5.0 N CHLORIDE (test code = CL) 107 mEq/L 100-108 N CARBON DIOXIDE (test code = CO2) 21 mEq/l 21-33 N ANION GAP (test code = GAP) 10 0-20 N GLUCOSE (test code = GLU) 125 mg/dL 77-141 BLOOD UREA NITROGEN (test code = BUN) 10 mg/dL 7-25 N GLOMERULAR FILTRATION RATE (test code = GFR) 79.0 70-80 N The Glomerular Filtration Rate is a calculated parameterbased on serum Creatinine, patient age and sex. GFR valuesless than 60 mL/min/1.73 square meters are indicative ofChronic Kidney Disease. Values less than 15 mL/min/1.73square meters indicate Kidney failure. The calculation forGFR is based on the CKD-EPI (2020) calculation. This formulais race indifferent and is the recommended formula for GFRby the National Kidney Foundation for Adults.The GFR will not calculate if the sex is unknown or if thepatient's age is <18 years. CREATININE (test code = CREAT) 1.0 mg/dL 0.6-1.3 N CALCIUM (test code = CA) 9.2 mg/dL 8.0-10.5 N COMMENTS: To be done morning of Heart CathPROTHROMBIN [id number] 04:53:00* Test Item Value Reference Range Interpretation Comme nts PROTHROMBIN TIME PATIENT (test code = PTP) 11.9 SECONDS 9.3-12.9 N INTERNATIONAL NORMAL RATIO (test code = INR) 1.1 0.8-1.2 N TARGET INR BY INDICATION Indication INR1. Prophylaxis of venous thrombosis 2.0 - 3.0 (orthopedic surgery), Prophylaxis of venous thrombosis (other than high-risk surgery), Treatment of Deep Vein Thrombosis/Pulmonary Embolism, Prevention of systemic embolism - Tissue heart valves, Acute Myocardial Infarction (to prevent systemic embolism), Valvular heart disease, Atrial Fibrillation, Bileaflet mechanical valve in aortic position.2. Mechanical prosthetic valves (high risk), 2.5 - 3.5 Presence of Lupus Anticoagulant or Antiphospholipid Antibodies, Prevention of systemic embolism - Acute Myocardial Infarction (to prevent recurrent infarct). CBC W/AUTO [id number] 04:48:00* Test Item Value Reference Range Interpretation Comme nts WHITE BLOOD CELL (test code = WBC) 6.2 x10 3/uL 4.5-11.0 N RED BLOOD CELL (test code = RBC) 3.38 x10 6/uL 4.00-5.60 L HEMOGLOBIN (test code = HGB) 10.8 g/dL 12.5-16.9 L HEMATOCRIT (test code = HCT) 32.9 % 37.5-50.7 L MEAN CELL VOLUME (test code = MCV) 97.3 fL 81.0-99.0 N MEAN CELL HGB (test code = MCH) 32.0 pg 27.0-33.0 N MEAN CELL HGB CONCETRATION (test code = MCHC) 32.8 g/dL 33.0-37.0 L RED CELL DISTRIBUTION WIDTH CV (test code = RDW) 13.7 % 11.5-14.5 N RED CELL DISTRIBUTION WIDTH SD (test code = RDW-SD) 49.4 fL 37.0-54.0 N PLATELET COUNT (test code = PLT) 228 x10 3/uL 150-400 N MEAN PLATELET VOLUME (test c ode = MPV) 9.6 fL 7.0-9.0 H NEUTROPHIL % (test code = NT%) 85.2 % 56.0-77.0 H IMMATURE GRANULOCYTE % (test code = IG%) 0.3 % 0.0-2.0 N LYMPHOCYTE % (test code = LY%) 10.6 % 14.0-32.0 L MONOCYTE % (test code = MO%) 3.9 % 4.8-9.0 L EOSINOPHIL % (test code = EO%) 0.0 % 0.3-3.7 L BASOPHIL % (test code = BA%) 0.0 % 0.0-2.0 N NUCLEATED RBC % (test code = NRBC%) 0.0 % 0-0 N NEUTROPHIL # (test code = NT#) 5.29 x10 3/uL 2.0-7.6 N IMMATURE GRANULOCYTE # (test code = IG#) 0.02 x10 3/uL 0.00-0.03 N LYMPHOCYTE # (test code = LY#) 0.66 x10 3/uL 1.0-3.8 L MONOCYTE # (test code = MO#) 0.24 x10 3/uL 0.1-0.8 N EOSINOPHIL # (test code = EO#) 0.00 x10 3/uL 0.0-0.2 N BASOPHIL # (test code = BA#) 0.00 x10 3/uL 0.0-0.2 N NUCLEATED RBC # (test code = NRBC#) 0.00 x10 3/uL 0.0-0.1 N COMMENTS: To be done morning of Heart CathBASIC METABOLIC [id number] 03:46:00* Test Item Value Reference Range Interpretation Comme nts SODIUM (test code = NA) 134 mEq/L 134-147 N POTASSIUM (test code = K) 4.6 mEq/L 3.4-5.0 N CHLORIDE (test code = CL) 106 mEq/L 100-108 N CARBON DIOXIDE (test code = CO2) 26 mEq/l 21-33 N ANION GAP (test code = GAP) 6 0-20 N GLUCOSE (test code = GLU) 89 mg/dL 77-141 N BLOOD UREA NITROGEN (test code = BUN) 16 mg/dL 7-25 N GLOMERULAR FILTRATION RATE (test code = GFR) 70.4 70-80 N The Glomerular Filtration Rate is a calculated parameterbased on serum Creatinine, patient age and sex. GFR valuesless than 60 mL/min/1.73 square meters are indicative ofChronic Kidney Disease. Values less than 15 mL/min/1.73square meters indicate Kidney failure. The calculation forGFR is based on the CKD-EPI (2020) calculation. This formulais race indifferent and is the recommended formula for GFRby the National Kidney Foundation for Adults.The GFR will not calculate if the sex is unknown or if thepatient's age is <18 years. CREATININE (test code = CREAT) 1.1 mg/dL 0.6-1.3 N CALCIUM (test code = CA) 8.3 mg/dL 8.0-10.5 N COMMENTS: To be done morning of Heart [id number] 03:46:00* Test Item Value Reference Range Interpretation Comme nts MAGNESIUM (test code = MAG) 1.94 mg/dL 1.6-2.6 N COMMENTS: To be done morning of Heart CathCBC W/AUTO [id number] 03:24:00* Test Item Value Reference Range Interpretation Comme nts WHITE BLOOD CELL (test code = WBC) 7.3 x10 3/uL 4.5-11.0 N RED BLOOD CELL (test code = RBC) 3.55 x10 6/uL 4.00-5.60 L HEMOGLOBIN (test code = HGB) 11.5 g/dL 12.5-16.9 L HEMATOCRIT (test code = HCT) 35.3 % 37.5-50.7 L MEAN CELL VOLUME (test code = MCV) 99.4 fL 81.0-99.0 H MEAN CELL HGB (test code = MCH) 32.4 pg 27.0-33.0 N MEAN CELL HGB CONCETRATION (test code = MCHC) 32.6 g/dL 33.0-37.0 L RED CELL DISTRIBUTION WIDTH CV (test code = RDW) 13.4 % 11.5-14.5 N RED CELL DISTRIBUTION WIDTH SD (test code = RDW-SD) 50.1 fL 37.0-54.0 N PLATELET COUNT (test code = PLT) 202 x10 3/uL 150-400 N MEAN PLATELET VOLUME (test c ode = MPV) 8.8 fL 7.0-9.0 N NEUTROPHIL % (test code = NT%) 66.9 % 56.0-77.0 N IMMATURE GRANULOCYTE % (test code = IG%) 0.4 % 0.0-2.0 N LYMPHOCYTE % (test code = LY%) 23.6 % 14.0-32.0 N MONOCYTE % (test code = MO%) 6.1 % 4.8-9.0 N EOSINOPHIL % (test code = EO%) 2.6 % 0.3-3.7 N BASOPHIL % (test code = BA%) 0.4 % 0.0-2.0 N NUCLEATED RBC % (test code = NRBC%) 0.0 % 0-0 N NEUTROPHIL # (test code = NT#) 4.86 x10 3/uL 2.0-7.6 N IMMATURE GRANULOCYTE # (test code = IG#) 0.03 x10 3/uL 0.00-0.03 N LYMPHOCYTE # (test code = LY#) 1.71 x10 3/uL 1.0-3.8 N MONOCYTE # (test code = MO#) 0.44 x10 3/uL 0.1-0.8 N EOSINOPHIL # (test code = EO#) 0.19 x10 3/uL 0.0-0.2 N BASOPHIL # (test code = BA#) 0.03 x10 3/uL 0.0-0.2 N NUCLEATED RBC # (test code = NRBC#) 0.00 x10 3/uL 0.0-0.1 N COMMENTS: To be done morning of Heart CathBASIC METABOLIC [id number] 04:32:00* Test Item Value Reference Range Interpretation Comme nts SODIUM (test code = NA) 133 mEq/L 134-147 L POTASSIUM (test code = K) 4.3 mEq/L 3.4-5.0 N CHLORIDE (test code = CL) 105 mEq/L 100-108 N CARBON DIOXIDE (test code = CO2) 23 mEq/l 21-33 N ANION GAP (test code = GAP) 10 0-20 N GLUCOSE (test code = GLU) 93 mg/dL 77-141 N BLOOD UREA NITROGEN (test code = BUN) 14 mg/dL 7-25 N GLOMERULAR FILTRATION RATE (test code = GFR) 79.0 70-80 N The Glomerular Filtration Rate is a calculated parameterbased on serum Creatinine, patient age and sex. GFR valuesless than 60 mL/min/1.73 square meters are indicative ofChronic Kidney Disease. Values less than 15 mL/min/1.73square meters indicate Kidney failure. The calculation forGFR is based on the CKD-EPI (2020) calculation. This formulais race indifferent and is the recommended formula for GFRby the National Kidney Foundation for Adults.The GFR will not calculate if the sex is unknown or if thepatient's age is <18 years. CREATININE (test code = CREAT) 1.0 mg/dL 0.6-1.3 N CALCIUM (test code = CA) 9.3 mg/dL 8.0-10.5 N [id number] 04:32:00* Test Item Value Reference Range Interpretation Comme nts MAGNESIUM (test code = MAG) 2.05 mg/dL 1.6-2.6 N CBC W/AUTO [id number] 04:13:00* Test Item Value Reference Range Interpretation Comme nts WHITE BLOOD CELL (test code = WBC) 8.2 x10 3/uL 4.5-11.0 N RED BLOOD CELL (test code = RBC) 3.96 x10 6/uL 4.00-5.60 L HEMOGLOBIN (test code = HGB) 12.7 g/dL 12.5-16.9 N HEMATOCRIT (test code = HCT) 38.6 % 37.5-50.7 N MEAN CELL VOLUME (test code = MCV) 97.5 fL 81.0-99.0 N MEAN CELL HGB (test code = MCH) 32.1 pg 27.0-33.0 N MEAN CELL HGB CONCETRATION (test code = MCHC) 32.9 g/dL 33.0-37.0 L RED CELL DISTRIBUTION WIDTH CV (test code = RDW) 13.6 % 11.5-14.5 N RED CELL DISTRIBUTION WIDTH SD (test code = RDW-SD) 48.9 fL 37.0-54.0 N PLATELET COUNT (test code = PLT) 221 x10 3/uL 150-400 N MEAN PLATELET VOLUME (test c ode = MPV) 8.6 fL 7.0-9.0 N NEUTROPHIL % (test code = NT%) 68.4 % 56.0-77.0 N IMMATURE GRANULOCYTE % (test code = IG%) 0.5 % 0.0-2.0 N LYMPHOCYTE % (test code = LY%) 22.3 % 14.0-32.0 N MONOCYTE % (test code = MO%) 6.3 % 4.8-9.0 N EOSINOPHIL % (test code = EO%) 2.1 % 0.3-3.7 N BASOPHIL % (test code = BA%) 0.4 % 0.0-2.0 N NUCLEATED RBC % (test code = NRBC%) 0.0 % 0-0 N NEUTROPHIL # (test code = NT#) 5.64 x10 3/uL 2.0-7.6 N IMMATURE GRANULOCYTE # (test code = IG#) 0.04 x10 3/uL 0.00-0.03 H LYMPHOCYTE # (test code = LY#) 1.84 x10 3/uL 1.0-3.8 N MONOCYTE # (test code = MO#) 0.52 x10 3/uL 0.1-0.8 N EOSINOPHIL # (test code = EO#) 0.17 x10 3/uL 0.0-0.2 N BASOPHIL # (test code = BA#) 0.03 x10 3/uL 0.0-0.2 N NUCLEATED RBC # (test code = NRBC#) 0.00 x10 3/uL 0.0-0.1 N [id number] 08:46:00* Test Item Value Reference Range Interpretation Comme nts PREALBUMIN (test code = PREALB) 19.7 mg/dL 16.0-40.0 N [id number] 05:18:00* Test Item Value Reference Range Interpretation Comme nts HGBA1C% (test code = HGBA1C%) 5.5 %A1C 4.8-6.0 N COMPREHENSIVE METABOLIC [id number] 05:08:00* Test Item Value Reference Range Interpretation Comme nts SODIUM (test code = NA) 134 mEq/L 134-147 N POTASSIUM (test code = K) 4.4 mEq/L 3.4-5.0 N CHLORIDE (test code = CL) 103 mEq/L 100-108 N CARBON DIOXIDE (test code = CO2) 27 mEq/l 21-33 N ANION GAP (test code = GAP) 9 0-20 N GLUCOSE (test code = GLU) 97 mg/dL 77-141 N BLOOD UREA NITROGEN (test code = BUN) 21 mg/dL 7-25 N GLOMERULAR FILTRATION RATE (test code = GFR) 70.4 70-80 N The Glomerular Filtration Rate is a calculated parameterbased on serum Creatinine, patient age and sex. GFR valuesless than 60 mL/min/1.73 square meters are indicative ofChronic Kidney Disease. Values less than 15 mL/min/1.73square meters indicate Kidney failure. The calculation forGFR is based on the CKD-EPI (2020) calculation. This formulais race indifferent and is the recommended formula for GFRby the National Kidney Foundation for Adults.The GFR will not calculate if the sex is unknown or if thepatient's age is <18 years. CREATININE (test code = CREAT) 1.1 mg/dL 0.6-1.3 N TOTAL PROTEIN (test code = PROT) 6.9 g/dL 6.4-8.2 N ALBUMIN (test code = ALB) 3.70 g/dL 3.4-5.0 N CALCIUM (test code = CA) 9.5 mg/dL 8.0-10.5 N BILIRUBIN TOTAL (test code = BILT) 0.60 mg/dL 0.0-1.0 N SGOT/AST (test code = AST) 19 IUnit/L 8-34 N SGPT/ALT (test code = ALT) < 7 IUnit/L 10-49 L ALKALINE PHOSPHATASE TOTAL (test code = ALKP) 60 IUnit/L 20-125 N LIPID PROFILE (CORONARY RISK)2024-06-24 05:08:00* Test Item Value Reference Range Interpretation Comme nts TRIGLYCERIDES (test code = TRIG) 92 mg/dL 40-150 N CHOLESTEROL (test code = CHOL) 206 mg/dL <200 H CHOLESTEROL/HDL RATIO (test code = CHOLHDL) 3.95 RATIO 3.43-4.97 N RISK ASSOCIATED WITH CHOL/HDL RATIOS: RISK MALE FEMALE1/2 AVERAGE 3.43 3.27AVERAGE 4.97 4.442X AVERAGE 9.55 7.053X AVERAGE 23.39 11.04 NOTE THAT THE REFERENCE VALUE IS RELATEDTO RISK LEVELS RECOMMENDED BY THE NATL.HEART, LUNG, AND BLOOD INST. HDL CHOLESTEROL (test code = HDL) 52.2 MG/DL 40-60 N HDL Interpreta tion < 40.0 mg/dL Low (undesirable, high risk)> 60.0 mg/dL High (desirable, low risk) Reference interval for healthy adults was established by theNational Cholesterol Education Program (NCEP). LIPOPROTEIN LDL (test code = LDL) 145.0 mg/dL 0-100 H <100 CPHUUDU90 0-129 NEAR OPTIMAL/ABOVE [id number] HIGH>SX=042 VERY HIGH*Guidelines provided by the National Cholesterol EducationProgram Adult Treatment Panel III PROTHROMBIN [id number] 04:37:00* Test Item Value Reference Range Interpretation Comme [facility] PROTHROMBIN TIME PATIENT (test code = PTP) 10.8 SECONDS 9.3-12.9 N INTERNATIONAL NORMAL RATIO (test code = INR) 1.0 0.8-1.2 N TARGET INR BY INDICATION Indication INR1. Prophylaxis of venous thrombosis 2.0 - 3.0 (orthopedic surgery), Prophylaxis of venous thrombosis (other than high-risk surgery), Treatment of Deep Vein Thrombosis/Pulmonary Embolism, Prevention of systemic embolism - Tissue heart valves, Acute Myocardial Infarction (to prevent systemic embolism), Valvular heart disease, Atrial Fibrillation, Bileaflet mechanical valve in aortic position.2. Mechanical prosthetic valves (high risk), 2.5 - 3.5 Presence of Lupus Anticoagulant or Antiphospholipid Antibodies, Prevention of systemic embolism - Acute Myocardial Infarction (to prevent recurrent infarct). THROMBOPLASTIN TIME [id number] 04:37:00* Test Item Value Reference Range Interpretation Comme nts THROMBOPLASTIN TIME PARTIAL (test code = PTT) 31.5 Seconds 25.0-39.5 N Therapeutic Rang e: 50.4 - 88.3 Seconds Effective 03/14/2019 CBC W/AUTO [id number] 04:26:00* Test Item Value Reference Range Interpretation Comme nts WHITE BLOOD CELL (test code = WBC) 8.0 x10 3/uL 4.5-11.0 N RED BLOOD CELL (test code = RBC) 3.98 x10 6/uL 4.00-5.60 L HEMOGLOBIN (test code = HGB) 12.9 g/dL 12.5-16.9 N HEMATOCRIT (test code = HCT) 39.0 % 37.5-50.7 N MEAN CELL VOLUME (test code = MCV) 98.0 fL 81.0-99.0 N MEAN CELL HGB (test code = MCH) 32.4 pg 27.0-33.0 N MEAN CELL HGB CONCETRATION (test code = MCHC) 33.1 g/dL 33.0-37.0 N RED CELL DISTRIBUTION WIDTH CV (test code = RDW) 13.5 % 11.5-14.5 N RED CELL DISTRIBUTION WIDTH SD (test code = RDW-SD) 49.1 fL 37.0-54.0 N PLATELET COUNT (test code = PLT) 236 x10 3/uL 150-400 N MEAN PLATELET VOLUME (test c ode = MPV) 8.5 fL 7.0-9.0 N NEUTROPHIL % (test code = NT%) 68.6 % 56.0-77.0 N IMMATURE GRANULOCYTE % (test code = IG%) 0.5 % 0.0-2.0 N LYMPHOCYTE % (test code = LY%) 22.5 % 14.0-32.0 N MONOCYTE % (test code = MO%) 5.8 % 4.8-9.0 N EOSINOPHIL % (test code = EO%) 2.1 % 0.3-3.7 N BASOPHIL % (test code = BA%) 0.5 % 0.0-2.0 N NUCLEATED RBC % (test code = NRBC%) 0.0 % 0-0 N NEUTROPHIL # (test code = NT#) 5.47 x10 3/uL 2.0-7.6 N IMMATURE GRANULOCYTE # (test code = IG#) 0.04 x10 3/uL 0.00-0.03 H LYMPHOCYTE # (test code = LY#) 1.79 x10 3/uL 1.0-3.8 N MONOCYTE # (test code = MO#) 0.46 x10 3/uL 0.1-0.8 N EOSINOPHIL # (test code = EO#) 0.17 x10 3/uL 0.0-0.2 N BASOPHIL # (test code = BA#) 0.04 x10 3/uL 0.0-0.2 N NUCLEATED RBC # (test code = NRBC#) 0.00 x10 3/uL 0.0-0.1 N PLATELET [id number] 21:44:00* Test Item Value Reference Range Interpretation Comme nts Heparinase maximum amplitude (test code = HKHMA) 63.8 mm 53-68 N ActivatorF maximum amplitude (test code = ACTFMA) 12.6 mm 2-19 N PLT ADP % INHIBITION (test c ode = ADPINH) 20.7 % 0-17 H ADP 5M (test code = ADP5M) 79.3 % 83-100 L ADP 6M (test code = ADP6M) 53.2 mm 45-69 N ARACHIDONIC ACID (test code = ARACH) 6.4 % 89-100 L Arachidonic acid maximum amp (test code = AAMA) 15.9 MM 51-71 L Arachidonic acid inhibition (test code = AAINH) 93.6 % 0-11 H UA RFLX MICR CULT IF [id number] 17:52:00* Test Item Value Reference Range Interpretation Comme nts UA COLOR (test code = COLU) YELLOW YEL/STRAW UA APPEARANCE (test code = APPU) CLEAR CLEAR UA GLUCOSE DIPSTICK (test co de = DGLUU) NEGATIVE NEGATIVE UA BILIRUBIN DIPSTICK (test code = BILU) NEGATIVE NEGATIVE UA KETONE DIPSTICK (test cod e = KETU) NEGATIVE NEGATIVE UA SPECIFIC GRAVITY (test co de = SGU) 1.014 1.005-1.030 N UA BLOOD DIPSTICK (test code = LUCIA) NEGATIVE NEGATIVE UA PH DIPSTICK (test code = CRICKET) 6.0 5.0-7.0 N UA PROTEIN DIPSTICK (test co de = PROU) NEGATIVE NEGATIVE UA UROBILINIOGEN DIPSTICK (test code = URO) 0.2 mg/dL 0.2-1.0 UA NITRITE DIPSTICK (test co de = NIKITA) NEGATIVE NEGATIVE UA LEUKOCYTE ESTERASE DIPSTI CK (test code = LEUU) NEGATIVE NEGATIVE UA WBC (test code = WBCU) 0-3 WBC/HPF 0-3 UA RBC (test code = RBCU) 0-3 RBC/HPF 0-3 UA WBC NO REFLEX (test code = WBCUCL) 0-3 WBC/HPF 0-3 UA BACTERIA (test code = BACU) NONE SEEN /HPF NONE SEEN UA SQUAMOUS CELLS (test code = SQU) NONE SEEN /HPF NONE SEEN UA MUCUS (test code = MUCU) TRACE /LPF NONE SEEN Indication for culture: Flank Pain Dysuria/FrequencySpecimen Description: CLEAN CATCHTROP-I HIGH [id number] 20:43:00* Test Item Value Reference Range Interpretation Comme nts TROP-I HIGH SENSITIVITY (test code = TROPIHS) 87 ng/L 0-54 H CAUTION: Units o f the current test methodology (ng/L) differfrom the prior test methodology (ng/mL) by a factor of 1000. 99th Percentile Upper Reference Limit (URL): Females: 34 ng/LMales: 54 ng/L In order to distinguish acute elevations of high sensitivitytroponin from other clinical conditions, the FourthUniversal Definition of Myocardial Infarction stressesclinical assessment and the demonstration of a rise and/orfall in serial troponin results above the URL. These results were obtained using Siemens AtellWithin3 IM TnIHreagent. Results from different methodologies should not becompared to one another as quantitative results and URLs mayvary by method. LIPOPROTEIN [id number] 20:14:00* Test Item Value Reference Range Interpretation Comme nts LIPOPROTEIN LDL (test code = LDL) 139.0 mg/dL 0-100 H <100 [id number] 0-129 NEAR OPTIMAL/ABOVE [id number] HIGH>LB=004 VERY HIGH*Guidelines provided by the National Cholesterol EducationProgram Adult Treatment Panel III Notes Date/Time Note Provider Source 2024-06-28 18:30:00 [id number] [place] [id number] PATIENT NAME: SHARONA LANDERS ADMIT DATE: 06/22/24 ACCOUNT NO: [id number] ROOM NO: [facility] [place] AGE: 73 REPORT TYPE: eECHOCARDIOGRAM REPORT SEX: M ADMITTING PHYSICIAN:Nathaly Zaragoza MD ATTENDING PHYSICIAN:Nathaly Zaragoza MD *[place] [address] Limited Transthoracic Echocardiogram Patient: Sharona Landers Study Date: 06/26/2024 BP: 110 / 62 URN: [id number] Location: : 1950 Age: 73 Gender: M Height: 66 in / 167.6 cm Weight: 120 lb / 54.4 kg BMI/BSA: 19.4 kg/m 2 / 1.59 m 2 *Ordering Physician: * Terry Colby MD *Interpreting Physician: * Terry Colby MD *Prefitter Doors: * Christina Mccord Indications: Low blood pressure, rule out pericardial effusion, EF, MR. Study data: Transthoracic echocardiogram, limited study. Procedure: A transthoracic echocardiogram was performed. Image quality was adequate. Limited 2D and limited spectral Doppler. Location: [facility]. Patient status: Outpatient. Patient room number: 21. Study status: Stat. Heart rate: 69 bpm. Rhythm: Normal sinus rhythm. Findings Left ventricle: The cavity size is normal. Wall thickness is mildly increased. Systolic function is normal. The estimated ejection fraction is 55-60%. Wall motion is normal; there are no regional wall motion abnormalities. Left ventricular diastolic function parameters are normal for PATIENT NAME: SHARONA LANDERS the patient's age. Right ventricle: The cavity size is normal. Systolic function is normal. Left atrium: The atrium is normal in size. Right atrium: The atrium is normal in size. Aorta: Aortic root: The root is normal-sized. Mitral valve: The valve is structurally normal. There is no evidence of stenosis. There is trace regurgitation. Tricuspid valve: The valve is structurally normal. Pericardium: There is no pericardial effusion. No evidence of pleural fluid accumulation. Systemic veins: Inferior vena cava: The IVC is normal-sized. Respirophasic diameter changes are in the normal range (>= 50%). Measurements Left ventricle Value Ref 06/23/2024 ESEQUIEL, LAX 3.9 cm 4.2 - 5.8 4.3 ESD, LAX 2.8 cm 2.5 - 4.0 3.1 FS, LAX 29 % 25 - 43 29 ESEQUIEL major ax, A2C 7.9 cm --------- ESD major ax, A2C 5.8 cm --------- IVS, ED 1.3 cm 0.6 - 1.0 1.0 PW, ED 0.9 cm 0.6 - 1.0 1.0 IVS/PW, ED 1.35 --------- 1 EF 57 % 52 - 72 56 E', lat kevin, TDI 10.0 cm/sec >=10.0 10.9 E/e', lat kevin, TDI 4 <=13 6 E', med kevin, TDI 9.6 cm/sec >=7.0 9.8 E/e', med kevin, TDI 5 --------- 6 E', avg, TDI 9.8 cm/sec --------- 10.3 E/e', avg, TDI 4 <=14 6 Left atrium Value Ref 06/23/2024 Vol/bsa, ES, 1-p A4C 13 ml/m 2 12 - 37 17 Vol/bsa, ES, A/L 16 ml/m 2 16 - 34 19 Mitral valve Value Ref 06/23/2024 Mean v, D 0.36 m/sec --------- Peak E 0.44 m/sec --------- 0.61 Peak A 0.4 m/sec --------- 0.7 VTI leaflet coapt 16.2 cm --------- Decel time 273 ms --------- 154 PHT 81 ms --------- 46 Mean grad, D 1 mm Hg --------- Peak grad, D 1.1 mm Hg --------- Peak E/A ratio 1.09 --------- 0.87 MVA, PHT 2.7 cm 2 --------- 4.7 Conclusions PATIENT NAME: SHARONA LANDERS Summary: Left ventricle: The cavity size is normal. Wall thickness is mildly increased. Systolic function is normal. The estimated ejection fraction is 55-60%. Wall motion is normal; there are no regional wall motion abnormalities. Left ventricular diastolic function parameters are normal for the patient's age. Electronically signed by Terry Colby MD 06/28/2024 18:30 at 1830 PATIENT NAME: SHARONA LANDERS [facility] 2024-06-28 12:01:00 [facility] ([facility]) Discharge Summary REPORT#:[id number] REPORT STATUS: Signed REPORT INITIALIZATION DATE:06/28/24 TIME: 1201 PATIENT: SHARONA LANDERS UNIT #: [id number] ROOM/BED: [place] [id number] : 49 AGE: 73 SEX: M ATTEND: Nathaly Zaragoza MD ADM AUTHOR: Alissa Segal Physic REPT SERVICE DT/TIME: 06/28/24 1201 * ALL edits or amendments must be made on the electronic/computer document * General Information Discharge date: 06/28/24 Discharge diagnosis: CAD, S/P [facility] Hospital course: Patient is a 73 [id number] with a past medical history of hypertension, hyperlipidemia (noncompliant with medication), coronary artery disease, COPD, hiatal hernia, heart attack (April 2024), and uses nicotine daily (smokes a Pap now) who presented to the ER complaining of feeling bad, minimal chest pain, shortness of breath, and general fatigue. Patient was scheduled to see Dr. Zaragoza for an appointment for evaluation of coronary artery bypass graft surgery and stated he did not think he could make it till then. Patient was recently in the hospital for a heart attack, and placed on Plavix (last taken ), and ASA. Patient states earlier this week that he was not feeling well, and would check his BP and HR, noticing fluctuating blood pressures as well as irregular heartbeat. Patient denies drinking. Patient denies chest pain and shortness of breath. Assessment/Plan: 1. Coronary artery disease 2. Hypertension 3. Hyperlipidemia 4. COPD Workup for CABG initiated CT chest Carotid Ultrasound DUP VEIN YOHANNES Mapping and Marking Daily labs Monitor BP Denies chest pain and shortness of breath TEG Patient seen and evaluated by Dr. Zaragoza. Patient understands plan of care. All questions answered. 06/24/24 Patient alert, awake, oriented, denies any chest pain Labs reviewed, prealbumin 19.[address] chest shows COPD Urinalysis negative Hemoglobin A1c 5.5 Coronary angiogram CD uploaded to [facility] cardio Timing of surgery pending Carotid Dopplers done shows left carotid artery stenosis 50 to 69% Last dose Plavix 06/20, check platelet mapping ADP 53.2, inhibition 20.2% Transfer to 1 Patient seen and examined by Dr. Zaragoza, discussed plan of care with patient, all the patient's questions were answered 06/25/24 Patient is stable condition, remains chest pain-free Reviewed labs Normal sinus rhythm Discontinued losartan, last dose yesterday PFT pending Lipitor on hold per patient request Dr. Zaragoza reviewed case with cardiology, cardiology planning for heart catheterization tomorrow and FFR, and further recommendations to follow Patient seen and examined by Dr. Zaragoza, plan of care discussed with patient, all the patient's questions were answered. 06/26/24 Patient resting comfortable, denies any chest pain Alert, awake, oriented Labs reviewed PFT pending, scheduled for tomorrow morning Patient scheduled for coronary angiogram today, further recommendations to follow Patient seen and examined by Dr. Zaragoza, discussed plan of care with patient, all the patient's questions were answered 06/27/24 aao X 3 RESITNG Comforable. Denies complaints. ON RA Patient S/P LHC with FFR showing no significant LAD disease. Patient will be scheduled for PCI to LCX and RCA today with cardiology Further recommendations to follow based on clinical course. 06/28/24 Patient resting comfortable Status post PCI to the RCA. Denies chest pain On room air Okay to DC patient home today. Follow-up with his sack filler in [place] in the next week or 2. No CV surgical indications at this time. Patient be discharged home on Plavix Consultants: cardiology Med Rec Med Rec Discharge meds: Start taking the following new medications: CLOPIDOGREL (PLAVIX) 75 MG TAB 75 MILLIGRAM ORAL DAILY. Days = 30 Qty = 30 No Refills METOPROLOL TARTRATE (LOPRESSOR) 25 MG TAB 25 MILLIGRAM ORAL TWICE DAILY. Days = 30 Qty = 60 No Refills ATORVASTATIN (LIPITOR) 40 MG TAB 40 MILLIGRAM ORAL 2100 Days = 30 Qty = 30 No Refills ASPIRIN EC (ECOTRIN) 81 MG TAB.EC 81 MILLIGRAM ORAL DAILY. Days = 30 Qty = 30 No Refills Discharge Instructions PCP )( Discharge to: Home/Self Care Discharge Instructions Additional Discharge Routines: [facility] Follow-Up )( Diet: Cardiac )( Activity: Light Duty Follow-up Appointments Consulting provider 1: Provider 1: Tor Vigil MD Specialty: CardiologyInterventional Quality: Discharge Advanced Care Plan 65 or Older Discussed with: patient Current Medications Current medication review: I attest that the foregoing medication list in the medical record is true, accurate, and complete to the best of my knowledge. at 1204 at 2233 RPT #:[id number] END OF REPORT [facility] 2024-06-28 08:30:00 [facility]) Cardiothoracic Surgery Prog REPORT#:[id number] REPORT STATUS: Signed REPORT INITIALIZATION DATE:06/28/24 TIME: 829 PATIENT: SHARONA LANDERS UNIT #: [id number] ROOM/BED: [place] [id number] : 49 AGE: 73 SEX: M ATTEND: Nathaly Zaragoza MD ADM AUTHOR: Alissa Segal REPT SERVICE DT/TIME: 06/28/24 0830 * ALL edits or amendments must be made on the electronic/computer document * Subjective Chief complaint: CAD, S/P PCI Review of Systems Constitutional: Denies: chills, fatigue, generalized weakness. Skin: Denies: abrasion, bruising, diaphoresis. Cardiovascular: Denies: chest pain, palpitations. GI: Denies: abdominal pain, nausea, vomiting. Heme: Denies: adenopathy, bleeding, bruising. Neuro: Denies: confusion, syncope. All systems rev neg: except as marked Objective General VS/I O Last Documented: Result Date Time Pulse Ox 100 06/28 724 B/P 128/65 06/28 724 B/P Mean 0.0 06/28 724 O2 Delivery Room air 06/28 724 Temp 98.1 06/28 724 Pulse 57 06/28 724 Resp 16 06/28 724 FiO2 21 06/25 1908 24 hour I O ending at 0700: 06/28 1900 Intake Total 400 Output Total 300 950 Balance -300 -550 Intake, Oral 400 Output, Urine 300 950 Patient 54.5 kg 54.545 kg Weight Weight Stated/Reported Measurement Method PATIENT WEIGHT: Weight (lb): 120 Weight (oz): 2.43 Weight (kg): 54.500 Physical Exam General appearance: alert, awake, oriented HEENT: anicteric, mucosal membranes moist, pupils reactive to light Neck: full range of motion, non-tender Cardiovascular: normal heart sounds, regular rate rhythm Respiratory: aerating well, symmetric expansion, no distress Abdomen: soft, non-tender Genitourinary: no bladder distention, no flank pain, no cadet Extremities: dry, moves all Musculoskeletal: full range of motion, painless range of motion Neuro/DELIVERY OF SHOPPING NEWS: alert, oriented X 3 Skin: dry, intact Psychiatry: normal affect, normal mood Quality: Trauma Gen Surg Advanced Care Plan 65 or Older Discussed with: patient Current Medications Current medication review: I attest that the foregoing medication list in the medical record is true, accurate, and complete to the best of my knowledge. Diagnosis, Assessment Plan Hospital course to date: Patient is a 73 [id number] with a past medical history of hypertension, hyperlipidemia (noncompliant with medication), coronary artery disease, COPD, hiatal hernia, heart attack (April 2024), and uses nicotine daily (smokes a Pap now) who presented to the ER complaining of feeling bad, minimal chest pain, shortness of breath, and general fatigue. Patient was scheduled to see Dr. Zaragoza for an appointment for evaluation of coronary artery bypass graft surgery and stated he did not think he could make it till then. Patient was recently in the hospital for a heart attack, and placed on Plavix (last taken ), and ASA. Patient states earlier this week that he was not feeling well, and would check his BP and HR, noticing fluctuating blood pressures as well as irregular heartbeat. Patient denies drinking. Patient denies chest pain and shortness of breath. Assessment/Plan: 1. Coronary artery disease 2. Hypertension 3. Hyperlipidemia 4. COPD Workup for CABG initiated CT chest Carotid Ultrasound DUP VEIN YOHANNES Mapping and Marking Daily labs Monitor BP Denies chest pain and shortness of breath TEG Patient seen and evaluated by Dr. Zaragoza. Patient understands plan of care. All questions answered. 06/24/24 Patient alert, awake, oriented, denies any chest pain Labs reviewed, prealbumin 19.[address] chest shows COPD Urinalysis negative Hemoglobin A1c 5.5 Coronary angiogram CD uploaded to [facility] cardio Timing of surgery pending Carotid Dopplers done shows left carotid artery stenosis 50 to 69% Last dose Plavix 06/20, check platelet mapping ADP 53.2, inhibition 20.2% Transfer to CV 1 Patient seen and examined by Dr. Zaragoza, discussed plan of care with patient, all the patient's questions were answered 06/25/24 Patient is stable condition, remains chest pain-free Reviewed labs Normal sinus rhythm Discontinued losartan, last dose yesterday PFT pending Lipitor on hold per patient request Dr. Zaragoza reviewed case with cardiology, cardiology planning for heart catheterization tomorrow and FFR, and further recommendations to follow Patient seen and examined by Dr. Zaragoza, plan of care discussed with patient, all the patient's questions were answered. 06/26/24 Patient resting comfortable, denies any chest pain Alert, awake, oriented Labs reviewed PFT pending, scheduled for tomorrow morning Patient scheduled for coronary angiogram today, further recommendations to follow Patient seen and examined by Dr. Zaragoza, discussed plan of care with patient, all the patient's questions were answered 06/27/24 aao X 3 RESITNG Comforable. Denies complaints. ON RA Patient S/P LHC with FFR showing no significant LAD disease. Patient will be scheduled for PCI to LCX and RCA today with cardiology Further recommendations to follow based on clinical course. 06/28/24 Patient resting comfortable Status post PCI to the RCA. Denies chest pain On room air Okay to DC patient home today. Follow-up with his sack filler in [place] in the next week or 2. No CV surgical indications at this time. Patient be discharged home on Plavix Consultants: cardiology at 1158 at 2234 RPT #:[id number] END OF REPORT [facility] 2024-06-28 06:51:00 [id number] [place] [id number] PATIENT NAME: SHARONA LANDERS ADMIT DATE: 06/22/24 ACCOUNT NO: [id number] ROOM NO: [facility] AGE: 73 REPORT TYPE: eELECTROCARDIOGRAM REPORT SEX: M ADMITTING PHYSICIAN:Nathaly Zaragoza MD ATTENDING PHYSICIAN:Nathaly Zaragoza MD Order: [id number] Test Reason : post pci Test Date/Time Stamp: WedJun 28 2024 06:51:47 Blood Pressure : / mmHG Vent. Rate : 066 BPM Atrial Rate : 066 BPM P-R Int : 144 ms QRS Dur : 094 ms QT Int : 398 ms P-R-T Axes : 091 107 073 degrees QTc Int : 417 ms Suspect arm lead reversal, interpretation assumes no reversal Sinus rhythm with premature supraventricular complexes and with occasional premature ventricular complexes Rightward axis Incomplete right bundle branch block Borderline ECG When compared with ECG of 27-JUN-2024 10:46, Significant changes have occurred Confirmed by MD LINDEN, JOAQUIM ([id number]) on 06/28/2024 9:11:35 PM Referred By: Self Referred Confirmed by:JOAQUIM ABRAHAM MD at 2111 PATIENT NAME: SHARONA LANDERS [facility] 2024-06-27 07:36:00 [facility] ([facility]) Cardiothoracic Surgery Prog REPORT#:[id number] REPORT STATUS: Signed REPORT INITIALIZATION DATE:06/27/24 TIME: 735 PATIENT: SHARONA LANDERS UNIT #: [id number] ROOM/BED: 3342-1 : 49 AGE: 73 SEX: M ATTEND: Nathaly Zaragoza MD ADM AUTHOR: Alissa Segal Physic REPT SERVICE DT/TIME: 06/27/24735 * ALL edits or amendments must be made on the electronic/computer document * Subjective Chief complaint: CAD, eval for CABG Review of Systems Constitutional: Denies: chills, fatigue, generalized weakness. Skin: Denies: abrasion, bruising, diaphoresis. Cardiovascular: Denies: chest pain, palpitations. GI: Denies: abdominal pain, nausea, vomiting. Heme: Denies: adenopathy, bleeding, bruising. Neuro: Denies: confusion, syncope. All systems rev neg: except as marked Objective General VS/I O Last Documented: Result Date Time Pulse Ox 99 06/27 042 B/P 123/71 06/27 0424 B/P Mean 0.0 06/27 042 O2 Delivery Room air 06/27 424 Temp 97.9 06/27 0424 Pulse 68 06/27 0424 Resp 17 06/27 0424 FiO2 21 06/25 1908 24 hour I O ending at 0700: 06/27 0700 06/26 1900 Intake Total 50 350.00 Output Total 2200 Balance -2150 350.00 Intake, IV 200.00 Intake, Oral 50 150 Number Voids 1 Output, 50 Emesis Output, Urine 2150 Patient 55 kg 54.7 kg Weight Weight Standing scale Stated/Reported Measurement Method PATIENT WEIGHT: Weight (lb): 121 Weight (oz): 4.07 Weight (kg): 55.000 Physical Exam General appearance: alert, awake, oriented HEENT: anicteric, mucosal membranes moist, pupils reactive to light Neck: full range of motion, non-tender Cardiovascular: normal heart sounds, regular rate rhythm Respiratory: aerating well, symmetric expansion, no distress Abdomen: soft, non-tender Genitourinary: no bladder distention, no flank pain, no cadet Extremities: dry, moves all Musculoskeletal: full range of motion, painless range of motion Neuro/DELIVERY OF SHOPPING NEWS: alert, oriented X 3 Skin: dry, intact Psychiatry: normal affect, normal mood Quality: Trauma Gen Surg Advanced Care Plan 65 or Older Discussed with: patient Current Medications Current medication review: I attest that the foregoing medication list in the medical record is true, accurate, and complete to the best of my knowledge. Diagnosis, Assessment Plan Hospital course to date: Patient is a 73 [id number]-szal with a past medical history of hypertension, hyperlipidemia (noncompliant with medication), coronary artery disease, COPD, hiatal hernia, heart attack (April 2024), and uses nicotine daily (smokes a Pap now) who presented to the ER complaining of feeling bad, minimal chest pain, shortness of breath, and general fatigue. Patient was scheduled to see Dr. Zaragoza for an appointment for evaluation of coronary artery bypass graft surgery and stated he did not think he could make it till then. Patient was recently in the hospital for a heart attack, and placed on Plavix (last taken ), and ASA. Patient states earlier this week that he was not feeling well, and would check his BP and HR, noticing fluctuating blood pressures as well as irregular heartbeat. Patient denies drinking. Patient denies chest pain and shortness of breath. Assessment/Plan: 1. Coronary artery disease 2. Hypertension 3. Hyperlipidemia 4. COPD Workup for CABG initiated CT chest Carotid Ultrasound DUP VEIN YOHANNES Mapping and Marking Daily labs Monitor BP Denies chest pain and shortness of breath TEG Patient seen and evaluated by Dr. Zaragoza. Patient understands plan of care. All questions answered. 06/24/24 Patient alert, awake, oriented, denies any chest pain Labs reviewed, prealbumin 19.[address] chest shows COPD Urinalysis negative Hemoglobin A1c 5.5 Coronary angiogram CD uploaded to [facility] Timing of surgery pending Carotid Dopplers done shows left carotid artery stenosis 50 to 69% Last dose Plavix 06/20, check platelet mapping ADP 53.2, inhibition 20.2% Transfer to CV 1 Patient seen and examined by Dr. Zaragoza, discussed plan of care with patient, all the patient's questions were answered 06/25/24 Patient is stable condition, remains chest pain-free Reviewed labs Normal sinus rhythm Discontinued losartan, last dose yesterday PFT pending Lipitor on hold per patient request Dr. Zaragoza reviewed case with cardiology, cardiology planning for heart catheterization tomorrow and FFR, and further recommendations to follow Patient seen and examined by Dr. Zaragoza, plan of care discussed with patient, all the patient's questions were answered. 06/26/24 Patient resting comfortable, denies any chest pain Alert, awake, oriented Labs reviewed PFT pending, scheduled for tomorrow morning Patient scheduled for coronary angiogram today, further recommendations to follow Patient seen and examined by Dr. Zaragoza, discussed plan of care with patient, all the patient's questions were answered 06/27/24 aao X 3 RESITNG Comforable. Denies complaints. ON RA Patient S/P LHC with FFR showing no significant LAD disease. Patient will be scheduled for PCI to LCX and RCA today with cardiology Further recommendations to follow based on clinical course. Consultants: cardiology at 1541 at 2237 RPT #:[id number] END OF REPORT [facility] 2024-06-27 06:59:00 [facility] ([facility]) Cath Post Proc - Brief REPORT#:[id number] REPORT STATUS: Signed REPORT INITIALIZATION DATE:06/27/24 TIME: 658 PATIENT: SHARONA LANDERS UNIT #: [id number] ROOM/BED: [place] [id number] : 49 AGE: 73 SEX: M ATTEND: Nathaly Zaragoza MD ADM AUTHOR: Terry Colby MD REPT SERVICE DT/TIME: 06/26/24 1600 * ALL edits or amendments must be made on the electronic/computer document * Pre-Procedure Presentation General Indication(s) for radiographer cardiac catheterization: new onset angina < = 2 mo Cath Procedure Cath Procedure Pre-procedure diagnosis: CAD Post-procedure diagnosis: CAD Procedure performed: diag coronary angiography, iFR Performed by: MD Lasha Pie Maker Machine(s): none Procedure details: Procedure performed: 1. Ultrasound-guided vascular access of the right radial artery 2. Selective coronary angiogram 3. IFR of the LAD 4. Moderate sedation, sedation time 45 minutes Procedure description: After informed consent was obtained patient was brought into the Cloth Laminating Supervisor patient was prepped and draped sterile fashion right radial artery was accessed using ultrasound guidance then a 6 Kinyarwanda slender sheath was inserted then I went up with I Velia left 3.5 guide engage the left main multiple pictures were taken. The left main is patent bifurcates into LAD and left circumflex. LAD is large sized vessel wraps around the apex gives to a large diagonals first diagonal has high takeoff between the 2 diagonals the LAD has 40 to 50% disease was very difficult to visualize due to overlap with the left circumflex. Second diagonal has 40 to 50% disease. Left circumflex gives multiple OM's first 2 arms are small, third OM is subtotally occluded in the mid left circumflex at the takeoff of the third OM has a 90% ulcerated lesion. The RCA is not injected not known to have severe mid disease. Intervention description: My guide was I Velia left 3.5, I did IFR and IFR was 0.97 which is not hemodynamically significant. I was planning to do a PCI of the left circumflex and RCA but the patient was hypotensive due to sedation and vasodilators so we decided to staged intervention till tomorrow. Patient was loaded with Plavix in the Cloth Laminating Supervisor. Continue aspirin Plavix IV hydration hold blood pressure medication tomorrow and plan for PCI to the left circumflex and RCA tomorrow. Impression/plan: Intermediate LAD disease that is negative by IFR, severe mid left circumflex and RCA disease plan for PCI tomorrow. Findings: As described above Complications: none Estimated blood loss in ml's: 020 Plan: Plan: PCI Specimens removed/altered: none at 0706 RPT #:[id number] END OF REPORT [facility] 2024-06-27 06:57:00 [facility] Cardiology Progress Note REPORT#:[id number] REPORT STATUS: Signed REPORT INITIALIZATION DATE:06/27/24 TIME: 06 PATIENT: SHARONA LANDERS UNIT #: [id number] ROOM/BED: [place] [id number] : 49 AGE: 73 SEX: M ATTEND: Nathaly Zaragoza MD ADM AUTHOR: Terry Colby MD REPT SERVICE DT/TIME: 06/27/24 0657 * ALL edits or amendments must be made on the electronic/computer document * Subjective Free Text Subj Notes Free Text Subj Notes: Doing okay, no chest pain or shortness of breath, was nauseated this morning Objective General VS/I O: 24 hour I O ending at 0700: 06/27 0700 06/26 1900 Intake Total 50 350.00 Output Total 2200 Balance -2150 350.00 Intake, IV 200.00 Intake, Oral 50 150 Number Voids 1 Output, 50 Emesis Output, Urine 2150 Patient 55 kg 54.7 kg Weight Weight Standing scale Stated/Reported Measurement Method Vital Signs: Date Time Temp Pulse Resp B/P B/P Pulse O2 O2 Flow FiO2 Mean Ox Delivery Rate 06/27 0424 97.9 68 17 123/71 0.0 99 Room air 06/26 2303 97.9 61 14 131/65 0.0 99 Room air 06/26 2013 97.7 71 16 115/56 0.0 100 Room air 06/26 1848 66 21 134/74 98 99 06/26 1830 60 12 108/61 79 99 Room air 06/26 1813 58 15 114/61 81 99 06/26 1800 59 21 110/55 99 06/26 1750 58 14 115/53 77 99 06/26 1740 57 15 119/57 99 06/26 1730 60 14 113/57 76 98 06/26 1720 57 13 113/56 99 06/26 1710 58 14 107/58 80 98 06/26 1700 63 20 108/58 99 06/26 1655 59 16 105/59 77 97 06/26 1650 58 15 111/64 98 06/26 1645 58 15 111/61 81 98 06/26 1640 62 15 109/58 98 06/26 1635 66 21 119/60 82 97 / 1630 64 18 94/50 65 97 06/26 1625 66 20 101/58 97 / 1620 62 14 100/58 74 97 06/26 1615 63 14 101/56 97 06/26 1610 66 14 112/60 81 97 06/26 1605 69 25 106/64 98 06/26 1600 64 20 109/63 82 98 06/26 1555 69 16 111/60 98 06/26 1550 70 20 118/65 85 98 06/26 1545 67 13 113/66 94 Room air 06/26 1541 75 16 118/64 85 98 06/26 1200 55 158/83 95 06/26 1049 54 14 153/70 101 99 06/26 0807 97 Room air 06/26 0730 98.1 54 20 128/62 0.0 98 Nasal cannula PATIENT WEIGHT: Weight (lb): 121 Weight (oz): 4.07 Weight (kg): 55.000 Medications: Active Meds + DC'd Last 24 Hrs Clopidogrel Bisulfate (Plavix) 75 MG DAILY PO Sodium Chloride (SODIUM CHLORIDE 0.9%) 1,000 ML .[id number] ONE IV Atropine Sulfate (ATROPINE SULFATE 0.1MG/ML SYR) 0.5 MG ASDIR PRN IV Clonidine HCl (CATAPRES) 0.1 MG Q6H PRN PRN PO Sodium Chloride (SODIUM CHLORIDE 0.9%) 1,000 ML .[id number] IV (DC) Sodium Chloride (SODIUM CHLORIDE 0.9%) 500 ML ASDIR PRN IV Epinephrine (EPINEPHrine) 0 .STK-MED ONE IV (DC) Norepinephrine Bitartrate (LEVOPHED BITARTATE) 0 .STK-MED ONE IV (DC) Sodium Chloride (SODIUM CHLORIDE 0.9%) 250 ML .STK-MED ONE IV (DC) Phenylephrine HCl (Phenylephrine PF 500 mcg/5 mL Inj) 0 .STK-MED ONE IV (DC) Heparin Sodium (HEPARIN SODIUM) 0 .STK-MED ONE .ROUTE (DC) Clopidogrel Bisulfate (CLOPIDOGREL BISULFATE) 0 .STK-MED ONE PO (DC) Diphenhydramine HCl (BENADRYL) 0 .STK-MED ONE IV (DC) Fentanyl Citrate (SUBLIMAZE) 0 .STK-MED ONE IV (DC) Methylprednisolone Sodium Succinate (Solu-Medrol 125 MG Vial) 0 .STK-MED ONE IV (DC) Midazolam HCl (VERSED) 0 .STK-MED ONE IV (DC) Adenosine (ADENOSCAN) 0 .STK-MED ONE IV (DC) Heparin Sodium (HEPARIN SODIUM) 0 .STK-MED ONE .ROUTE (DC) Nitroglycerin/Dextrose (NITROGLYCERIN 50,000MCG/D5W 250ML) 250 ML .STK-MED ONE IV (DC) Sodium Chloride (SODIUM CHLORIDE 0.9%) 50 ML .STK-MED ONE IV (DC) Verapamil HCl (ISOPTIN) 0 .STK-MED ONE IV (DC) Heparin Sodium/Sodium Chloride (HEPARIN 2,000 UNITS/NS 1,000mL) 1,000 ML .STK-MED ONE IV (DC) Heparin Sodium/Sodium Chloride (HEPARIN 1,000 UNITS/NS 500ML) 500 ML .STK- MED ONE IV (DC) Lidocaine HCl (LIDOCAINE HCL/PF) 0 .STK-MED ONE .ROUTE (DC) Sodium Chloride (SODIUM CHLORIDE 0.9%) 1,000 ML .[id number] ONE IV (DC) Calcium Carbonate (TUMS CHEW TAB) 1,000 MG Q12H PRN PRN PO Aspirin (ASPIRIN) 81 MG DAILY PO Atorvastatin Calcium (LIPITOR) 40 MG 2100 PO (DA) Metoprolol Tartrate (LOPRESSOR) 25 MG BID PO Hydralazine HCl (APRESOLINE) 10 MG Q6H PRN PRN IV Physical Exam General appearance: alert, awake, oriented Neck: full range of motion, non-tender, normal thyroid, supple/no meningismus, no bruit/NL carotids, no JVD, no lymphadenopathy, no masses or swelling Cardiovascular: CV assessment: regular rate and rhythm, BP pulses = bilaterally, normal heart sounds Respiratory: clear to auscultation, no distress Abdomen: soft, non-tender, normal bowel sounds Genitourinary: no flank pain, no urinary catheter Lower extremity: LE assessment: normal capillary refill, no edema Musculoskeletal: normal inspection Neuro/DELIVERY OF SHOPPING NEWS: alert, oriented X 3, normal reflexes Skin: dry, intact, normal color Psychiatry: normal affect, normal judgment/insight, normal mood Results Findings/Data: Laboratory Tests 06/270 Chemistry Sodium (134 - 147 mEq/L) 134 Potassium (3.4 - 5.0 mEq/L) 4.2 Chloride (100 - 108 mEq/L) 107 Carbon Dioxide (21 - 33 mEq/l) 21 Anion Gap (0 - 20) 10 BUN (7 - 25 mg/dL) 10 Creatinine (0.6 - 1.3 mg/dL) 1.0 Glomerular Filtr Rate (70 - 80) 79.0 Glucose (77 - 141 mg/dL) 125 Calcium (8.0 - 10.5 mg/dL) 9.2 Laboratory Tests 06/27 0420 Coagulation INR (0.8 - 1.2) 1.1 PT Patient/Control Mix (9.3 - 12.9 SECONDS) 11.9 Laboratory Tests 06/27 0420 Hematology WBC (4.5 - 11.0 x10 3/uL) 6.2 RBC (4.00 - 5.60 x10 6/uL) 3.38 L Hgb (12.5 - 16.9 g/dL) 10.8 L Hct (37.5 - 50.7 %) 32.9 L MCV (81.0 - 99.0 fL) 97.3 MCH (27.0 - 33.0 pg) 32.0 MCHC (33.0 - 37.0 g/dL) 32.8 L RDW (11.5 - 14.5 %) 13.7 Plt Count (150 - 400 x10 3/uL) 228 MPV (7.0 - 9.0 fL) 9.6 H Neut % (Auto) (56.0 - 77.0 %) 85.2 H Lymph % (Auto) (14.0 - 32.0 %) 10.6 L Stewart % (Auto) (4.8 - 9.0 %) 3.9 L Eos % (Auto) (0.3 - 3.7 %) 0.0 L Baso % (Auto) (0.0 - 2.0 %) 0.0 Neut # (Auto) (2.0 - 7.6 x10 3/uL) 5.29 Lymph # (Auto) (1.0 - 3.8 x10 3/uL) 0.66 L Stewart # (Auto) (0.1 - 0.8 x10 3/uL) 0.24 Eos # (Auto) (0.0 - 0.2 x10 3/uL) 0.00 Baso # (Auto) (0.0 - 0.2 x10 3/uL) 0.00 Abs Immat Gran (auto) (0.00 - 0.03 x10 3/uL) 0.02 Immature Gran % (0.0 - 2.0 %) 0.3 Nucleated RBC % (0 - 0 %) 0.0 Nucleated RBCs # (Man) (0.0 - 0.1 x10 3/uL) 0.00 Diagnosis, Assessment Plan Free Text DxA P Notes Free Text DxA P Notes: 1. Recent NSTEMI/Multivessel CAD * Coronary angiogram reviewed and showed intermediate proximal LAD disease severe mid left circumflex and RCA disease, I did FFR of the LAD which was not hemodynamically significant and plan for PCI of the left circumflex and RCA. Procedure was not today due to low blood pressure plan for PCI today. Patient was loaded with Plavix and continue with aspirin and statin. 2. Elevated troponin likely residual of recent NSTEMI * Troponin trend 90->87 * no chest pain * start ASA 81 mg daily * restart home medication metoprolol 3. Hypertension * Stable 06/27/2024: S/p PCI to the left circumflex and RCA IVUS guided and optimized. Continue aspirin, Plavix, high intensity statin. Monitor today and anticipate discharge tomorrow morning. at 1059 RPT #:[id number] END OF REPORT [facility] 2024-06-26 19:02:00 [facility] ([facility]) Cardiology Progress Note REPORT#:[id number] REPORT STATUS: Signed REPORT INITIALIZATION DATE:06/26/24 TIME: 1901 PATIENT: SHARONA LANDERS UNIT #: [id number] ROOM/BED: [place] [id number] : 49 AGE: 73 SEX: M ATTEND: Nathaly Zaragoza MD ADM AUTHOR: Terry Colby MD REPT SERVICE DT/TIME: 06/26/241901 * ALL edits or amendments must be made on the electronic/computer document * Subjective Free Text Subj Notes Free Text Subj Notes: Doing ok, no chest pain or shortness of Objective General VS/I O: 24 hour I O ending at 07: 06/26 1900 Intake Total 900.00 530 Output Total 850 Balance 50.00 530 Intake, IV 900.00 Intake, Oral 530 Number 1 Bowel Movements Number Voids 2 Output, Urine 850 Patient 54.7 kg 53.3 kg Weight Weight Standing scale Standing scale Measurement Method Vital Signs: Date Time Temp Pulse Resp B/P B/P Pulse O2 O2 Flow FiO2 Mean Ox Delivery Rate 06/26 1830 59 16 108/51 99 Room air 06/26 1800 59 21 110/55 99 06/26 1740 57 15 119/57 99 06/26 1730 60 14 113/57 98 06/26 1720 57 13 113/56 99 06/26 1710 58 14 107/58 98 06/26 1700 63 20 108/58 99 06/26 1655 59 16 105/59 97 06/26 1650 58 15 111/64 98 06/26 1645 58 15 111/61 98 06/26 1640 62 15 109/58 98 06/26 1635 66 21 119/60 97 06/26 1630 64 18 94/50 97 06/26 1625 66 20 101/58 97 06/26 1620 62 14 100/58 97 06/26 1615 63 14 101/56 97 06/26 1610 66 14 112/60 97 06/26 1605 69 25 106/64 98 06/26 1600 64 20 109/63 98 06/26 1555 69 16 111/60 98 06/26 1550 70 20 118/65 98 06/26 1545 67 13 113/66 94 Room air 06/26 1200 55 158/83 95 06/26 0807 97 Room air 06/26 0730 98.1 54 20 128/62 0.0 98 Nasal cannula 06/26 0343 97.5 52 12 128/62 0.0 98 06/26 0137 98 Room air 06/26 0000 53 16 143/70 100 98 06/25 2340 52 21 140/72 104 98 06/25 2340 98.1 54 13 140/72 0.0 100 06/25 2320 56 27 131/74 97 99 06/25 2130 51 17 99 06/25 1908 98 Room air 21 PATIENT WEIGHT: Weight (lb): 120 Weight (oz): 9.49 Weight (kg): 54.700 Medications: Active Meds + DC'd Last 24 Hrs Clopidogrel Bisulfate (Plavix) 75 MG DAILY PO Sodium Chloride (SODIUM CHLORIDE 0.9%) 1,000 ML .[id number] ONE IV Atropine Sulfate (ATROPINE SULFATE 0.1MG/ML SYR) 0.5 MG ASDIR PRN IV Clonidine HCl (CATAPRES) 0.1 MG Q6H PRN PRN PO Sodium Chloride (SODIUM CHLORIDE 0.9%) 1,000 ML .[id number] IV Sodium Chloride (SODIUM CHLORIDE 0.9%) 500 ML ASDIR PRN IV Epinephrine (EPINEPHrine) 0 .STK-MED ONE IV (DC) Norepinephrine Bitartrate (LEVOPHED BITARTATE) 0 .STK-MED ONE IV (DC) Sodium Chloride (SODIUM CHLORIDE 0.9%) 250 ML .STK-MED ONE IV (DC) Phenylephrine HCl (Phenylephrine PF 500 mcg/5 mL Inj) 0 .STK-MED ONE IV (DC) Heparin Sodium (HEPARIN SODIUM) 0 .STK-MED ONE .ROUTE (DC) Clopidogrel Bisulfate (CLOPIDOGREL BISULFATE) 0 .STK-MED ONE PO (DC) Diphenhydramine HCl (BENADRYL) 0 .STK-MED ONE IV (DC) Fentanyl Citrate (SUBLIMAZE) 0 .STK-MED ONE IV (DC) Methylprednisolone Sodium Succinate (Solu-Medrol 125 MG Vial) 0 .STK-MED ONE IV (DC) Midazolam HCl (VERSED) 0 .STK-MED ONE IV (DC) Adenosine (ADENOSCAN) 0 .STK-MED ONE IV (DC) Heparin Sodium (HEPARIN SODIUM) 0 .STK-MED ONE .ROUTE (DC) Nitroglycerin/Dextrose (NITROGLYCERIN 50,000MCG/D5W 250ML) 250 ML .STK-MED ONE IV (DC) Sodium Chloride (SODIUM CHLORIDE 0.9%) 50 ML .STK-MED ONE IV (DC) Verapamil HCl (ISOPTIN) 0 .STK-MED ONE IV (DC) Heparin Sodium/Sodium Chloride (HEPARIN 2,000 UNITS/NS 1,000mL) 1,000 ML .STK-MED ONE IV (DC) Heparin Sodium/Sodium Chloride (HEPARIN 1,000 UNITS/NS 500ML) 500 ML .STK- MED ONE IV (DC) Lidocaine HCl (LIDOCAINE HCL/PF) 0 .STK-MED ONE .ROUTE (DC) Sodium Chloride (SODIUM CHLORIDE 0.9%) 1,000 ML .[id number] ONE IV (DC) Calcium Carbonate (TUMS CHEW TAB) 1,000 MG Q12H PRN PRN PO Aspirin (ASPIRIN) 81 MG DAILY PO Atorvastatin Calcium (LIPITOR) 40 MG 2100 PO (DA) Metoprolol Tartrate (LOPRESSOR) 25 MG BID PO Hydralazine HCl (APRESOLINE) 10 MG Q6H PRN PRN IV Physical Exam General appearance: alert, awake, oriented Neck: full range of motion, non-tender, normal thyroid, supple/no meningismus, no bruit/NL carotids, no JVD, no lymphadenopathy, no masses or swelling Cardiovascular: CV assessment: regular rate and rhythm, BP pulses = bilaterally, normal heart sounds Respiratory: clear to auscultation, no distress Abdomen: soft, non-tender, normal bowel sounds Genitourinary: no flank pain, no urinary catheter Lower extremity: LE assessment: normal capillary refill, no edema Musculoskeletal: normal inspection Neuro/DELIVERY [employer]PING NEWS: alert, oriented X 3, normal reflexes Skin: dry, intact, normal color Psychiatry: normal affect, normal judgment/insight, normal mood Results Findings/Data: Laboratory Tests 06/26 133 Chemistry Sodium (134 - 147 mEq/L) 134 Potassium (3.4 - 5.0 mEq/L) 4.6 Chloride (100 - 108 mEq/L) 106 Carbon Dioxide (21 - 33 mEq/l) 26 Anion Gap (0 - 20) 6 BUN (7 - 25 mg/dL) 16 Creatinine (0.6 - 1.3 mg/dL) 1.1 Glomerular Filtr Rate (70 - 80) 70.4 Glucose (77 - 141 mg/dL) 89 Calcium (8.0 - 10.5 mg/dL) 8.3 Magnesium (1.6 - 2.6 mg/dL) 1.94 Laboratory Tests 06/26 133 Hematology WBC (4.5 - 11.0 x10 3/uL) 7.3 RBC (4.00 - 5.60 x10 6/uL) 3.55 L Hgb (12.5 - 16.9 g/dL) 11.5 L Hct (37.5 - 50.7 %) 35.3 L MCV (81.0 - 99.0 fL) 99.4 H MCH (27.0 - 33.0 pg) 32.4 MCHC (33.0 - 37.0 g/dL) 32.6 L RDW (11.5 - 14.5 %) 13.4 Plt Count (150 - 400 x10 3/uL) 202 MPV (7.0 - 9.0 fL) 8.8 Neut % (Auto) (56.0 - 77.0 %) 66.9 Lymph % (Auto) (14.0 - 32.0 %) 23.6 Stewart % (Auto) (4.8 - 9.0 %) 6.1 Eos % (Auto) (0.3 - 3.7 %) 2.6 Baso % (Auto) (0.0 - 2.0 %) 0.4 Neut # (Auto) (2.0 - 7.6 x10 3/uL) 4.86 Lymph # (Auto) (1.0 - 3.8 x10 3/uL) 1.71 Stewart # (Auto) (0.1 - 0.8 x10 3/uL) 0.44 Eos # (Auto) (0.0 - 0.2 x10 3/uL) 0.19 Baso # (Auto) (0.0 - 0.2 x10 3/uL) 0.03 Abs Immat Gran (auto) (0.00 - 0.03 x10 3/uL) 0.03 Immature Gran % (0.0 - 2.0 %) 0.4 Nucleated RBC % (0 - 0 %) 0.0 Nucleated RBCs # (Man) (0.0 - 0.1 x10 3/uL) 0.00 Laboratory Tests 06/26 0133 Chemistry Magnesium (1.6 - 2.6 mg/dL) 1.94 Diagnosis, Assessment Plan Free Text DxA P Notes Free Text DxA P Notes: 1. Recent NSTEMI/Multivessel CAD * Coronary angiogram reviewed and showed intermediate proximal LAD disease severe mid left circumflex and RCA disease, I did FFR of the LAD which was not hemodynamically significant and plan for PCI of the left circumflex and RCA. Procedure was not today due to low blood pressure plan for PCI tomorrow. Patient was loaded with Plavix and continue with aspirin and statin. 2. Elevated troponin likely residual of recent NSTEMI * Troponin trend 90->87 * no chest pain * start ASA 81 mg daily * restart home medication metoprolol 3. 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 Will resume as needed at 1911 RPT #:[id number] END OF REPORT [facility] 2024-06-26 10:32:00 [facility]) Cardiothoracic Surgery Prog REPORT#:[id number] REPORT STATUS: Signed REPORT INITIALIZATION DATE:06/26/24 TIME: 1031 PATIENT: SHARONA LANDERS UNIT #: [id number] ROOM/BED: [place] [id number] : 49 AGE: 73 SEX: M ATTEND: Nathaly Zaragoza MD ADM AUTHOR: Dahlia Barger APRN REPT SERVICE DT/TIME: 06/26/24 1032 * ALL edits or amendments must be made on the electronic/computer document * Subjective Chief complaint: CAD, eval for CABG Review of Systems Constitutional: Denies: chills, fatigue, generalized weakness. Skin: Denies: abrasion, bruising, diaphoresis. Cardiovascular: Denies: chest pain, palpitations. GI: Denies: abdominal pain, nausea, vomiting. Heme: Denies: adenopathy, bleeding, bruising. Neuro: Denies: confusion, syncope. All systems rev neg: except as marked Objective General VS/I O Last Documented: Result Date Time Pulse Ox 97 06/26 0807 O2 Delivery Room air 06/26 0807 B/P 128/62 06/26 0730 B/P Mean 0.0 06/26 07 Temp 98.1 06/26 07 Pulse 54 06/26 0730 Resp 20 06/26 0730 FiO2 21 06/25 1908 24 hour I O ending at 0700: 06/26 0700 06/25 1900 Intake Total 900.00 530 Output Total 850 Balance 50.00 530 Intake, IV 900.00 Intake, Oral 530 Number 1 Bowel Movements Number Voids 2 Output, Urine 850 Patient 54.7 kg 53.3 kg Weight Weight Standing scale Standing scale Measurement Method PATIENT WEIGHT: Weight (lb): 120 Weight (oz): 9.49 Weight (kg): 54.700 Dietitian Nutrition assessment The data set between the solid lines has been imported from the dietitian's assessment. BMI Calculated: 22.2 Nutrition related diagnosis: Nutrition diagnosis details: Nutrition problem: Nutrition etiology: Nutrition signs and symptoms: Nutrition prescription: Dietitian name: Assessment completed: Physical Exam General appearance: alert, awake, oriented HEENT: anicteric, mucosal membranes moist, pupils reactive to light Neck: full range of motion, non-tender Cardiovascular: normal heart sounds, regular rate rhythm Respiratory: aerating well, symmetric expansion, no distress Abdomen: soft, non-tender Genitourinary: no bladder distention, no flank pain, no cadet Extremities: dry, moves all Musculoskeletal: full range of motion, painless range of motion Neuro/DELIVERY OF SHOPPING NEWS: alert, oriented X 3 Skin: dry, intact Psychiatry: normal affect, normal mood Current Medications Medications: Active Meds + DC'd Last 24 Hrs Sodium Chloride (SODIUM CHLORIDE 0.9%) 1,000 ML .[id number] ONE IV (DC) Calcium Carbonate (TUMS CHEW TAB) 1,000 MG Q12H PRN PRN PO Aspirin (ASPIRIN) 81 MG DAILY PO Atorvastatin Calcium (LIPITOR) 40 MG 2100 PO (DA) Metoprolol Tartrate (LOPRESSOR) 25 MG BID PO Hydralazine HCl (APRESOLINE) 10 MG Q6H PRN PRN IV Results Findings/Data: Laboratory Tests 06/26 0133 Chemistry Sodium (134 - 147 mEq/L) 134 Potassium (3.4 - 5.0 mEq/L) 4.6 Chloride (100 - 108 mEq/L) 106 Carbon Dioxide (21 - 33 mEq/l) 26 Anion Gap (0 - 20) 6 BUN (7 - 25 mg/dL) 16 Creatinine (0.6 - 1.3 mg/dL) 1.1 Glomerular Filtr Rate (70 - 80) 70.4 Glucose (77 - 141 mg/dL) 89 Calcium (8.0 - 10.5 mg/dL) 8.3 Magnesium (1.6 - 2.6 mg/dL) 1.94 Laboratory Tests 06/26 0133 Hematology WBC (4.5 - 11.0 x10 3/uL) 7.3 RBC (4.00 - 5.60 x10 6/uL) 3.55 L Hgb (12.5 - 16.9 g/dL) 11.5 L Hct (37.5 - 50.7 %) 35.3 L MCV (81.0 - 99.0 fL) 99.4 H MCH (27.0 - 33.0 pg) 32.4 MCHC (33.0 - 37.0 g/dL) 32.6 L RDW (11.5 - 14.5 %) 13.4 Plt Count (150 - 400 x10 3/uL) 202 MPV (7.0 - 9.0 fL) 8.8 Neut % (Auto) (56.0 - 77.0 %) 66.9 Lymph % (Auto) (14.0 - 32.0 %) 23.6 Stewart % (Auto) (4.8 - 9.0 %) 6.1 Eos % (Auto) (0.3 - 3.7 %) 2.6 Baso % (Auto) (0.0 - 2.0 %) 0.4 Neut # (Auto) (2.0 - 7.6 x10 3/uL) 4.86 Lymph # (Auto) (1.0 - 3.8 x10 3/uL) 1.71 Stewart # (Auto) (0.1 - 0.8 x10 3/uL) 0.44 Eos # (Auto) (0.0 - 0.2 x10 3/uL) 0.19 Baso # (Auto) (0.0 - 0.2 x10 3/uL) 0.03 Abs Immat Gran (auto) (0.00 - 0.03 x10 3/uL) 0.03 Immature Gran % (0.0 - 2.0 %) 0.4 Nucleated RBC % (0 - 0 %) 0.0 Nucleated RBCs # (Man) (0.0 - 0.1 x10 3/uL) 0.00 Results: labs reviewed, vital signs stable, familia personally rev'd, current med profile rev'd Treatment Prophylaxis Treatment Prophylaxis CVC/PICC documentation: The data below has been imported from nursing documentation. Any exceptions have been noted below under Provider comments. CVC/PICC insertion date/time: Provider comments on imported nursing data: [] Quality: Trauma Gen Surg Advanced Care Plan 65 or Older Discussed with: patient Current Medications Current medication review: I attest that the foregoing medication list in the medical record is true, accurate, and complete to the best of my knowledge. Diagnosis, Assessment Plan Hospital course to date: Patient is a 73 [id number] with a past medical history of hypertension, hyperlipidemia (noncompliant with medication), coronary artery disease, COPD, hiatal hernia, heart attack (April 2024), and uses nicotine daily (smokes a Pap now) who presented to the ER complaining of feeling bad, minimal chest pain, shortness of breath, and general fatigue. Patient was scheduled to see Dr. Zaragoza for an appointment for evaluation of coronary artery bypass graft surgery and stated he did not think he could make it till then. Patient was recently in the hospital for a heart attack, and placed on Plavix (last taken ), and ASA. Patient states earlier this week that he was not feeling well, and would check his BP and HR, noticing fluctuating blood pressures as well as irregular heartbeat. Patient denies drinking. Patient denies chest pain and shortness of breath. Assessment/Plan: 1. Coronary artery disease 2. Hypertension 3. Hyperlipidemia 4. COPD Workup for CABG initiated CT chest Carotid Ultrasound DUP VEIN YOHANNES Mapping and Marking Daily labs Monitor BP Denies chest pain and shortness of breath TEG Patient seen and evaluated by Dr. Zaragoza. Patient understands plan of care. All questions answered. 06/24/24 Patient alert, awake, oriented, denies any chest pain Labs reviewed, prealbumin 19.[address] chest shows COPD Urinalysis negative Hemoglobin A1c 5.5 Coronary angiogram CD uploaded to merge cardio Timing of surgery pending Carotid Dopplers done shows left carotid artery stenosis 50 to 69% Last dose Plavix 06/20, check platelet mapping ADP 53.2, inhibition 20.2% Transfer to 1 Patient seen and examined by Dr. Zaragoza, discussed plan of care with patient, all the patient's questions were answered 06/25/24 Patient is stable condition, remains chest pain-free Reviewed labs Normal sinus rhythm Discontinued losartan, last dose yesterday PFT pending Lipitor on hold per patient request Dr. Zaragoza reviewed case with cardiology, cardiology planning for heart catheterization tomorrow and FFR, and further recommendations to follow Patient seen and examined by Dr. Zaragoza, plan of care discussed with patient, all the patient's questions were answered. 06/26/24 Patient resting comfortable, denies any chest pain Alert, awake, oriented Labs reviewed PFT pending, scheduled for tomorrow morning Patient scheduled for coronary angiogram today, further recommendations to follow Patient seen and examined by Dr. Zaragoza, discussed plan of care with patient, all the patient's questions were answered Orders: Procedure Date/time Status MAGNESIUM 06/26 0500 Complete Consultants: cardiology Code status: full code Plan discussed with: patient, collaborating MD, nurse at 1035 at 0853 RPT #:[id number] END OF REPORT [facility] 2024-06-25 10:18:00 [facility] Cardiology Progress Note REPORT#:[id number] REPORT STATUS: Signed REPORT INITIALIZATION DATE:06/25/24 TIME: 1018 PATIENT: SHARONA LANDERS UNIT #: [id number] ROOM/BED: [place] [id number] : 49 AGE: 73 SEX: M ATTEND: Nathaly Zaragoza MD ADM AUTHOR: Octavio Medrano MD REPT SERVICE DT/TIME: 06/25/24 1018 * ALL edits or amendments must be made on the electronic/computer document * Subjective HPI: 73 YO male with MH of HTN, LA, and newly discovered multivessel CAD. He was at [facility] on 06/11/2024 due to fluctuating blood pressure. Had abnormal troponin ruled in for NSTEMI. Underwent LHC that showed significant multivessel CAD including the LAD,diagonal, mid left circ, and mid RCA. He was discharged home and was supposed to see CT surgery outpatient for CABG evaluation. However, he did not fell that night before, with generalized weakness and fluctuating blood pressure, and he decided to come to [facility] ED with the help of his neighbor. Troponin slightly elevated. We are called for cardiac evaluation. Objective General VS/I O: 24 hour I O ending at 0700: 06/25 1900 Intake Total 200 Output Total 300 425 Balance -100 -425 Intake, Oral 200 Output, Urine 300 425 Vital Signs: Date Time Temp Pulse Resp B/P B/P Pulse O2 O2 Flow FiO2 Mean Ox Delivery Rate 06/25 600 36.8 65 16 125/64 84 98 06/25 0600 64 19 99 06/25 0355 36.6 56 19 124/60 0.0 98 Room air 06/25 0354 54 25 124/60 86 98 06/25 0105 69 25 124/88 100 97 06/24 2204 36.6 54 22 135/62 0.0 97 Room air 06/24 2202 55 20 135/62 89 99 06/24 2100 54 18 120/60 86 98 06/24 2000 55 15 122/58 84 99 06/24 1835 36.8 56 16 147/71 0.0 99 06/24 1825 56 27 99 06/24 1820 51 20 147/71 102 99 06/24 1800 58 22 98 06/24 1700 60 46 96 06/24 1600 51 23 141/67 99 99 06/24 1550 36.7 51 18 131/69 0.0 100 Room air 06/24 1124 36.5 53 14 103/59 73.3 98 Room air PATIENT WEIGHT: Weight (lb): 117 Weight (oz): 8.1 Weight (kg): 53.300 Medications: Active Meds + DC'd Last 24 Hrs Calcium Carbonate (TUMS CHEW TAB) 1,000 MG Q12H PRN PRN PO Aspirin (ASPIRIN) 81 MG DAILY PO Atorvastatin Calcium (LIPITOR) 40 MG 2100 PO Metoprolol Tartrate (LOPRESSOR) 25 MG BID PO Valsartan (DIOVAN 160MG TAB) 160 MG DAILY PO (DC) Hydralazine HCl (APRESOLINE) 10 MG Q6H PRN PRN IV Physical Exam General appearance: alert, awake Neck: full range of motion, non-tender, normal thyroid, supple/no meningismus, no bruit/NL carotids, no JVD, no lymphadenopathy, no masses or swelling Cardiovascular: CV assessment: regular rate and rhythm, BP pulses = bilaterally, normal heart sounds Respiratory: clear to auscultation, no distress Abdomen: soft, non-tender, normal bowel sounds Genitourinary: no flank pain, no urinary catheter Lower extremity: LE assessment: normal capillary refill, no edema Musculoskeletal: normal inspection Neuro/DELIVERY [employer] NEWS: alert, oriented X 3, normal reflexes Skin: dry, intact, normal color Psychiatry: normal affect, normal judgment/insight, normal mood Diagnosis, Assessment Plan Consultants: cardiology Free Text DxA P Notes Free Text DxA P Notes: Free Text DxA P Notes: 73 YO male with MH of HTN, LA, and newly discovered multivessel CAD. He was at [facility] on 06/11/2024 due to fluctuating blood pressure. Had abnormal troponin ruled in for NSTEMI. Underwent LHC that showed significant multivessel CAD including the LAD,diagonal, mid left circ, and mid RCA. He was discharged home and was supposed to see CT surgery outpatient for CABG evaluation. However, he did not fell that night before, with generalized weakness and fluctuating blood pressure, and he decided to come to [facility] ED with the help of his neighbor. Troponin slightly elevated. We are called for cardiac evaluation. 1. Recent NSTEMI/Multivessel CAD * CABG evaluation ongoing * last dose of Plavix 06/20/24 * ASA, BB, statin 2. Elevated troponin likely residual of recent NSTEMI * Troponin trend 90->87 * no chest pain * start ASA 81 mg daily * restart home medication metoprolol 3. Hypertension * BP elevated on presentation * resume metoprolol 25 mg BID * start Valsartan 160 mg daily * Hydralazine 10 mg Q6H PRN for SBP> 170 mmHg stable no cp sob cabg eval in progress stable hemodynamics no active issues per pt plan a s above at 1019 RPT #:[id number] END OF REPORT [facility] 2024-06-25 09:36:00 [facility] ([facility]) Cardiothoracic Surgery Prog REPORT#:[id number] REPORT STATUS: Signed REPORT INITIALIZATION DATE:06/25/24 TIME: 935 PATIENT: SHARONA LANDERS UNIT #: [id number] ROOM/BED: [place] [id number] : 49 AGE: 73 SEX: M ATTEND: Nathaly Zaragoza MD ADM AUTHOR: Dahlia Barger APRN REPT SERVICE DT/TIME: 06/25/24 09 * ALL edits or amendments must be made on the electronic/computer document * Subjective Chief complaint: CAD, eval for CABG Review of Systems Constitutional: Denies: chills, fatigue, generalized weakness. Skin: Denies: abrasion, bruising, diaphoresis. Cardiovascular: Denies: chest pain, palpitations. GI: Denies: abdominal pain, nausea, vomiting. Heme: Denies: adenopathy, bleeding, bruising. Neuro: Denies: confusion, syncope. All systems rev neg: except as marked Objective General VS/I O Last Documented: Result Date Time Pulse Ox 98 06/25 0600 B/P 125/64 06/25 0600 B/P Mean 84 06/25 0600 Temp 98.2 06/25 0600 Pulse 65 06/25 0600 Resp 16 06/25 0600 O2 Delivery Room air 06/25 0355 FiO2 21 06/23 2029 24 hour I O ending at 0700: 06/25 0700 06/24 1900 Intake Total 200 Output Total 300 425 Balance -100 -425 Intake, Oral 200 Output, Urine 300 425 PATIENT WEIGHT: Weight (lb): 117 Weight (oz): 8.1 Weight (kg): 53.300 Dietitian Nutrition assessment The data set between the solid lines has been imported from the dietitian's assessment. BMI Calculated: 22.2 Nutrition related diagnosis: Nutrition diagnosis details: Nutrition problem: Nutrition etiology: Nutrition signs and symptoms: Nutrition prescription: Dietitian name: Assessment completed: Physical Exam General appearance: alert, awake, oriented HEENT: anicteric, mucosal membranes moist, pupils reactive to light Neck: full range of motion, non-tender Cardiovascular: normal heart sounds, regular rate rhythm Respiratory: aerating well, symmetric expansion, no distress Abdomen: soft, non-tender Genitourinary: no bladder distention, no flank pain, no cadet Extremities: dry, moves all Musculoskeletal: full range of motion, painless range of motion Neuro/DELIVERY OF SHOPPING NEWS: alert, oriented X 3 Skin: dry, intact Psychiatry: normal affect, normal mood Current Medications Medications: Active Meds + DC'd Last 24 Hrs Calcium Carbonate (TUMS CHEW TAB) 1,000 MG Q12H PRN PRN PO Aspirin (ASPIRIN) 81 MG DAILY PO Atorvastatin Calcium (LIPITOR) 40 MG 2100 PO Metoprolol Tartrate (LOPRESSOR) 25 MG BID PO Valsartan (DIOVAN 160MG TAB) 160 MG DAILY PO (DC) Hydralazine HCl (APRESOLINE) 10 MG Q6H PRN PRN IV Results Findings/Data: Laboratory Tests 06/25 348 Chemistry Sodium (134 - 147 mEq/L) 133 L Potassium (3.4 - 5.0 mEq/L) 4.3 Chloride (100 - 108 mEq/L) 105 Carbon Dioxide (21 - 33 mEq/l) 23 Anion Gap (0 - 20) 10 BUN (7 - 25 mg/dL) 14 Creatinine (0.6 - 1.3 mg/dL) 1.0 Glomerular Filtr Rate (70 - 80) 79.0 Glucose (77 - 141 mg/dL) 93 Calcium (8.0 - 10.5 mg/dL) 9.3 Magnesium (1.6 - 2.6 mg/dL) 2.05 Laboratory Tests 06/25 348 Hematology WBC (4.5 - 11.0 x10 3/uL) 8.2 RBC (4.00 - 5.60 x10 6/uL) 3.96 L Hgb (12.5 - 16.9 g/dL) 12.7 Hct (37.5 - 50.7 %) 38.6 MCV (81.0 - 99.0 fL) 97.5 MCH (27.0 - 33.0 pg) 32.1 MCHC (33.0 - 37.0 g/dL) 32.9 L RDW (11.5 - 14.5 %) 13.6 Plt Count (150 - 400 x10 3/uL) 221 MPV (7.0 - 9.0 fL) 8.6 Neut % (Auto) (56.0 - 77.0 %) 68.4 Lymph % (Auto) (14.0 - 32.0 %) 22.3 Stewart % (Auto) (4.8 - 9.0 %) 6.3 Eos % (Auto) (0.3 - 3.7 %) 2.1 Baso % (Auto) (0.0 - 2.0 %) 0.4 Neut # (Auto) (2.0 - 7.6 x10 3/uL) 5.64 Lymph # (Auto) (1.0 - 3.8 x10 3/uL) 1.84 Stewart # (Auto) (0.1 - 0.8 x10 3/uL) 0.52 Eos # (Auto) (0.0 - 0.2 x10 3/uL) 0.17 Baso # (Auto) (0.0 - 0.2 x10 3/uL) 0.03 Abs Immat Gran (auto) (0.00 - 0.03 x10 3/uL) 0.04 H Immature Gran % (0.0 - 2.0 %) 0.5 Nucleated RBC % (0 - 0 %) 0.0 Nucleated RBCs # (Man) (0.0 - 0.1 x10 3/uL) 0.00 Results: labs reviewed, vital signs stable, albertesperanzagirma personally rev'd, current med profile rev'd Treatment Prophylaxis Treatment Prophylaxis CVC/PICC documentation: The data below has been imported from nursing documentation. Any exceptions have been noted below under Provider comments. CVC/PICC insertion date/time: Provider comments on imported nursing data: [] Quality: Trauma Gen Surg Advanced Care Plan 65 or Older Discussed with: patient Current Medications Current medication review: I attest that the foregoing medication list in the medical record is true, accurate, and complete to the best of my knowledge. Diagnosis, Assessment Plan Hospital course to date: Patient is a 73 [id number] with a past medical history of hypertension, hyperlipidemia (noncompliant with medication), coronary artery disease, COPD, hiatal hernia, heart attack (April 2024), and uses nicotine daily (smokes a Pap now) who presented to the ER complaining of feeling bad, minimal chest pain, shortness of breath, and general fatigue. Patient was scheduled to see Dr. Zaragoza for an appointment for evaluation of coronary artery bypass graft surgery and stated he did not think he could make it till then. Patient was recently in the hospital for a heart attack, and placed on Plavix (last taken ), and ASA. Patient states earlier this week that he was not feeling well, and would check his BP and HR, noticing fluctuating blood pressures as well as irregular heartbeat. Patient denies drinking. Patient denies chest pain and shortness of breath. Assessment/Plan: 1. Coronary artery disease 2. Hypertension 3. Hyperlipidemia 4. COPD Workup for CABG initiated CT chest Carotid Ultrasound DUP VEIN YOHANNES Mapping and Marking Daily labs Monitor BP Denies chest pain and shortness of breath TEG Patient seen and evaluated by Dr. Zaragoza. Patient understands plan of care. All questions answered. 06/24/24 Patient alert, awake, oriented, denies any chest pain Labs reviewed, prealbumin 19.[address] chest shows COPD Urinalysis negative Hemoglobin A1c 5.5 Coronary angiogram CD uploaded to merge cardio Timing of surgery pending Carotid Dopplers done shows left carotid artery stenosis 50 to 69% Last dose Plavix 06/20, check platelet mapping ADP 53.2, inhibition 20.2% Transfer to CV 1 Patient seen and examined by Dr. Zaragoza, discussed plan of care with patient, all the patient's questions were answered 06/25/24 Patient is stable condition, remains chest pain-free Reviewed labs Normal sinus rhythm Discontinued losartan, last dose yesterday PFT pending Lipitor on hold per patient request Dr. Zaragoza reviewed case with cardiology, cardiology planning for heart catheterization tomorrow and FFR, and further recommendations to follow Patient seen and examined by Dr. Zaragoza, plan of care discussed with patient, all the patient's questions were answered. Consultants: cardiology Code status: full code Plan discussed with: patient, collaborating MD, nurse at 1226 at 2221 RPT #:[id number] END OF REPORT [facility] 2024-06-24 11:56:00 [id number] [place] [id number] PATIENT NAME: SHARONA LANDERS ADMIT DATE: 06/22/24 ACCOUNT NO: [id number] ROOM NO: G.4408 AGE: 73 REPORT TYPE: eECHOCARDIOGRAM REPORT SEX: M ADMITTING PHYSICIAN:Nathaly Zaragoza MD ATTENDING PHYSICIAN:Nathaly Zaragoza MD *[place] [address] Transthoracic Echocardiogram Patient: Sharona Landers Study Date: 06/23/2024 BP: 118 / 67 URN: [id number] Location: : 1950 Age: 73 Gender: M Height: 66 in / 167.6 cm Weight: 134 lb / 60.8 kg BMI/BSA: 21.6 kg/m 2 / 1.68 m 2 *Ordering Physician: * Dahlia Barger Aprn *Interpreting Physician: * Terry Colby MD *Prefitter Doors: * Myrna Bill Indications: PRE-OP, CAD. Study data: Transthoracic echocardiogram. Procedure: A transthoracic echocardiogram was performed. Image quality was adequate. Complete 2D, complete spectral Doppler, and color Doppler. Location: Bedside. Patient room number: 4408. Heart rate: 62 bpm. Findings Left ventricle: The cavity size is normal. Wall thickness is normal. Systolic function is normal. The estimated ejection fraction is 55-60%. Wall motion is normal; there are no regional wall motion abnormalities. Grade I diastolic dysfunction. Right ventricle: The cavity size is normal. Systolic function is normal. PATIENT NAME: SHARONA LANDERS Left atrium: The atrium is normal in size. Right atrium: The atrium is normal in size. Aorta: Aortic root: The root is normal-sized. Aortic valve: The valve is structurally normal. The valve is trileaflet. There is no evidence of stenosis. There is no regurgitation. Mitral valve: The valve is structurally normal. There is no evidence of stenosis. There is trace regurgitation. Tricuspid valve: The valve is structurally normal. There is mild regurgitation. Pulmonic valve: The valve is structurally normal. There is no regurgitation. Pericardium: There is no pericardial effusion. Pulmonary arteries: The main pulmonary artery is normal-sized. Systemic veins: Inferior vena cava: The IVC is normal-sized. Measurements Left ventricle Value Ref GLS, 2D -20 % --------- ESEQUIEL, LAX 4.3 cm 4.2 - 5.8 ESD, LAX 3.1 cm 2.5 - 4.0 FS, LAX 29 % 25 - 43 IVS, ED 1.0 cm 0.6 - 1.0 PW, ED 1.0 cm 0.6 - 1.0 IVS/PW, ED 1 --------- EF 56 % 52 - 72 E', lat kevin, TDI 10.9 cm/sec >=10.0 E/e', lat kevin, TDI 6 <=13 E', med kevin, TDI 9.8 cm/sec >=7.0 E/e', med kevin, TDI 6 --------- E', avg, TDI 10.3 cm/sec --------- E/e', avg, TDI 6 <=14 LVOT Value Ref Diam, S 2.05 cm --------- Area 3.3 cm 2 --------- Peak lynda, S 0.65 m/sec --------- Mean lynda, S 0.38 m/sec --------- VTI, S 13.0 cm --------- Peak grad, S 2 mm Hg --------- Mean grad, S 1 mm Hg --------- SV 43 ml --------- SV/bsa 25 ml/m 2 --------- Right ventricle Value Ref ESEQUIEL, LAX 2.7 cm --------- Pressure, S 31 mm Hg --------- RVOT Value Ref Peak v, S 0.69 m/sec --------- Peak grad, S 2 mm Hg --------- PATIENT NAME: SHARONA LANDERS Left atrium Value Ref Vol/bsa, S 23 ml/m 2 16 - 34 Vol/bsa, ES, 1-p A4C 17 ml/m 2 12 - 37 Vol, ES, 2-p 41 ml --------- Vol/bsa, ES, 2-p 24 ml/m 2 16 - 34 Vol/bsa, ES, A/L 19 ml/m 2 16 - 34 AP dim, ES MM 3.5 cm 3.0 - 4.0 LA/Ao root ratio, MM 1.09 --------- Aortic valve Value Ref Leaflet sep, MM 1.94 cm --------- Peak v, S 1.2 m/sec --------- Mean v, S 0.7 m/sec --------- VTI, S 20.0 cm --------- Mean grad, S 2 mm Hg --------- Peak grad, S 5.9 mm Hg --------- LVOT/AV, VTI ratio 0.65 --------- BALJIT, VTI 2.14 cm 2 --------- LVOT/AV, Vpeak ratio 0.53 --------- BALJIT, Vmax 1.76 cm 2 --------- Mitral valve Value Ref E-septal separation 0.6 cm --------- E-F slope 0.05 m/sec --------- Peak E 0.61 m/sec --------- Peak A 0.7 m/sec --------- Decel time 154 ms --------- PHT 46 ms --------- Peak E/A ratio 0.87 --------- MVA, PHT 4.7 cm 2 --------- Tricuspid valve Value Ref TR peak v 2.4 m/sec <=2.8 Peak RV-RA grad, S 23 mm Hg --------- Aortic root Value Ref Root diam, ED MM 3.2 cm --------- Pulmonary artery Value Ref Pressure, S 28.4 mm Hg --------- Systemic veins Value Ref Estimated CVP 8 mm Hg --------- Conclusions Summary: 1. Left ventricle: The cavity size is normal. Wall thickness is normal. Systolic function is normal. The estimated ejection fraction is 55-60%. Wall motion is normal; there are no regional wall motion abnormalities. Grade I diastolic dysfunction. The longitudinal strain is -20%. 2. Right ventricle: The RV pressure during systole is 31 mm Hg. PATIENT NAME: SHARONA LANDERS 3. Tricuspid valve: There is mild regurgitation. 4. Pericardium, extracardiac: There is no pericardial effusion. Electronically signed by Terry Colby MD 06/24/2024 11:56 at 1156 PATIENT NAME: SHARONA LANDERS [facility] 2024-06-24 10:57:00 [facility] Cardiology Progress Note REPORT#:[id number] REPORT STATUS: Signed REPORT INITIALIZATION DATE:06/24/24 TIME: 105 PATIENT: SHARONA LANDERS UNIT #: [id number] ROOM/BED: [place] [id number] : 49 AGE: 73 SEX: M ATTEND: Nathaly Zaragoza MD ADM AUTHOR: Octavio Medrano MD REPT SERVICE DT/TIME: 06/24/24 1057 * ALL edits or amendments must be made on the electronic/computer document * Subjective HPI: 73 YO male with MH of HTN, LA, and newly discovered multivessel CAD. He was at [facility] on 06/11/2024 due to fluctuating blood pressure. Had abnormal troponin ruled in for NSTEMI. Underwent LHC that showed significant multivessel CAD including the LAD,diagonal, mid left circ, and mid RCA. He was discharged home and was supposed to see CT surgery outpatient for CABG evaluation. However, he did not fell that night before, with generalized weakness and fluctuating blood pressure, and he decided to come to [facility] ED with the help of his neighbor. Troponin slightly elevated. We are called for cardiac evaluation. Objective General VS/I O: Vital Signs: Date Time Temp Pulse Resp B/P B/P Pulse O2 O2 Flow FiO2 Mean Ox Delivery Rate 06/24 0731 36.6 60 14 123/69 87.1 98 Room air 06/24 0446 36.5 56 16 132/77 95.7 98 Room air 06/24 0007 36.8 61 16 126/72 90.2 98 Room air 06/23 2029 99 Room air 21 06/23 1928 36.5 60 16 151/72 98.7 99 Room air 06/23 1621 36.6 56 16 153/68 96.5 99 Room air 06/23 1119 36.8 58 20 118/67 84.1 100 Room air PATIENT WEIGHT: Weight (lb): Weight (oz): Weight (kg): 61.100 Medications: Active Meds + DC'd Last 24 Hrs Aspirin (ASPIRIN) 81 MG DAILY PO Atorvastatin Calcium (LIPITOR) 40 MG 2100 PO Metoprolol Tartrate (LOPRESSOR) 25 MG BID PO Valsartan (DIOVAN 160MG TAB) 160 MG DAILY PO Hydralazine HCl (APRESOLINE) 10 MG Q6H PRN PRN IV Physical Exam General appearance: alert, awake Neck: full range of motion, non-tender, normal thyroid, supple/no meningismus, no bruit/NL carotids, no JVD, no lymphadenopathy, no masses or swelling Cardiovascular: CV assessment: regular rate and rhythm, BP pulses = bilaterally, normal heart sounds Respiratory: clear to auscultation, no distress Abdomen: soft, non-tender, normal bowel sounds Genitourinary: no flank pain, no urinary catheter Lower extremity: LE assessment: normal capillary refill, no edema Musculoskeletal: normal inspection Neuro/DELIVERY OF SHOPPING NEWS: alert, oriented X 3, normal reflexes Skin: dry, intact, normal color Psychiatry: normal affect, normal judgment/insight, normal mood Diagnosis, Assessment Plan Consultants: cardiology Free Text DxA P Notes Free Text DxA P Notes: 73 YO male with MH of HTN, LA, and newly discovered multivessel CAD. He was at [facility] on 06/11/2024 due to fluctuating blood pressure. Had abnormal troponin ruled in for NSTEMI. Underwent LHC that showed significant multivessel CAD including the LAD,diagonal, mid left circ, and mid RCA. He was discharged home and was supposed to see CT surgery outpatient for CABG evaluation. However, he did not fell that night before, with generalized weakness and fluctuating blood pressure, and he decided to come to [facility] ED with the help of his neighbor. Troponin slightly elevated. We are called for cardiac evaluation. 1. Recent NSTEMI/Multivessel CAD * CABG evaluation ongoing * last dose of Plavix 06/20/24 * ASA, BB, statin 2. Elevated troponin likely residual of recent NSTEMI * Troponin trend 90->87 * no chest pain * start ASA 81 mg daily * restart home medication metoprolol 3. Hypertension * BP elevated on presentation * resume metoprolol 25 mg BID * start Valsartan 160 mg daily * Hydralazine 10 mg Q6H PRN for SBP> 170 mmHg stable no cp sob cabg eval in progress stable hemodynamics at 1059 RPT #:[id number] END OF REPORT [facility] 2024-06-24 09:35:00 [facility]) Cardiothoracic Surgery Prog REPORT#:[id number] REPORT STATUS: Signed REPORT INITIALIZATION DATE:06/24/24 TIME: 934 PATIENT: SHARONA LANDERS UNIT #: [id number] ROOM/BED: [place] [id number] : 49 AGE: 73 SEX: M ATTEND: Ntahaly Zaragoza MD ADM AUTHOR: Dahlia Barger APRN REPT SERVICE DT/TIME: 06/24/24 0935 * ALL edits or amendments must be made on the electronic/computer document * Subjective Chief complaint: CAD, eval for CABG Review of Systems Constitutional: Denies: chills, fatigue, generalized weakness. Skin: Denies: abrasion, bruising, diaphoresis. Cardiovascular: Denies: chest pain, palpitations. GI: Denies: abdominal pain, nausea, vomiting. Heme: Denies: adenopathy, bleeding, bruising. Neuro: Denies: confusion, syncope. All systems rev neg: except as marked Objective General VS/I O Last Documented: Result Date Time Pulse Ox 98 06/24 731 B/P 123/69 06/24 731 B/P Mean 87.1 06/24 731 O2 Delivery Room air 06/24 731 Temp 97.9 06/24 731 Pulse 60 06/24 731 Resp 14 06/24 731 FiO2 21 06/23 2029 PATIENT WEIGHT: Weight (lb): Weight (oz): Weight (kg): 61.100 Dietitian Nutrition assessment The data set between the solid lines has been imported from the dietitian's assessment. BMI Calculated: 25.5 Nutrition related diagnosis: Nutrition diagnosis details: Nutrition problem: Nutrition etiology: Nutrition signs and symptoms: Nutrition prescription: Dietitian name: Assessment completed: Physical Exam General appearance: alert, awake, oriented HEENT: anicteric, mucosal membranes moist, pupils reactive to light Neck: full range of motion, non-tender Cardiovascular: normal heart sounds, regular rate rhythm Respiratory: aerating well, symmetric expansion, no distress Abdomen: soft, non-tender Genitourinary: no bladder distention, no flank pain, no cadet Extremities: dry, moves all Musculoskeletal: full range of motion, painless range of motion Neuro/DELIVERY OF SHOPPING NEWS: alert, oriented X 3 Skin: dry, intact Psychiatry: normal affect, normal mood Current Medications Medications: Active Meds + DC'd Last 24 Hrs Aspirin (ASPIRIN) 81 MG DAILY PO Atorvastatin Calcium (LIPITOR) 40 MG 2100 PO Metoprolol Tartrate (LOPRESSOR) 25 MG BID PO Valsartan (DIOVAN 160MG TAB) 160 MG DAILY PO Hydralazine HCl (APRESOLINE) 10 MG Q6H PRN PRN IV Results Findings/Data: Laboratory Tests 06/24 Chemistry Sodium (134 - 147 mEq/L) 134 Potassium (3.4 - 5.0 mEq/L) 4.4 Chloride (100 - 108 mEq/L) 103 Carbon Dioxide (21 - 33 mEq/l) 27 Anion Gap (0 - 20) 9 BUN (7 - 25 mg/dL) 21 Creatinine (0.6 - 1.3 mg/dL) 1.1 Glomerular Filtr Rate (70 - 80) 70.4 Glucose (77 - 141 mg/dL) 97 Hemoglobin A1c (4.8 - 6.0 %A1C) 5.5 Calcium (8.0 - 10.5 mg/dL) 9.5 Total Bilirubin (0.0 - 1.0 mg/dL) 0.60 AST (8 - 34 IUnit/L) 19 ALT (10 - 49 IUnit/L) < 7 L Total Alk Phosphatase (20 - 125 IUnit/L) 60 Total Protein (6.4 - 8.2 g/dL) 6.9 Albumin (3.4 - 5.0 g/dL) 3.70 Prealbumin (16.0 - 40.0 mg/dL) 19.7 Triglycerides (40 - 150 mg/dL) 92 Cholesterol (<200 mg/dL) 206 H LDL Cholesterol Measurd (0 - 100 mg/dL) 145.0 H HDL Cholesterol (40 - 60 MG/DL) 52.2 Cholesterol/HDL Ratio (3.43 - 4.97 RATIO) 3.95 Laboratory Tests 06/24 Coagulation INR (0.8 - 1.2) 1.0 PTT (Harrison) (25.0 - 39.5 Seconds) 31.5 PT Patient/Control Mix (9.3 - 12.9 SECONDS) 10.8 TEG Max Amplitude (51 - 71 MM) 15.9 L TEG Max Ampl Kaol w Hep (53 - 68 mm) 63.8 TEG Factor Func Interp (2 - 19 mm) 12.6 Plt % Inhibition (AA) (0 - 11 %) 93.6 H Plt Map % Inh ADP w/Hep (0 - 17 %) 20.7 H Plt Agg - ADP (83 - 100 %) 79.3 L Plt Agg - Arachidonic (89 - 100 %) 6.4 L Laboratory Tests 06/24 0344 Hematology WBC (4.5 - 11.0 x10 3/uL) 8.0 RBC (4.00 - 5.60 x10 6/uL) 3.98 L Hgb (12.5 - 16.9 g/dL) 12.9 Hct (37.5 - 50.7 %) 39.0 MCV (81.0 - 99.0 fL) 98.0 MCH (27.0 - 33.0 pg) 32.4 MCHC (33.0 - 37.0 g/dL) 33.1 RDW (11.5 - 14.5 %) 13.5 Plt Count (150 - 400 x10 3/uL) 236 MPV (7.0 - 9.0 fL) 8.5 Neut % (Auto) (56.0 - 77.0 %) 68.6 Lymph % (Auto) (14.0 - 32.0 %) 22.5 Stewart % (Auto) (4.8 - 9.0 %) 5.8 Eos % (Auto) (0.3 - 3.7 %) 2.1 Baso % (Auto) (0.0 - 2.0 %) 0.5 Neut # (Auto) (2.0 - 7.6 x10 3/uL) 5.47 Lymph # (Auto) (1.0 - 3.8 x10 3/uL) 1.79 Stewart # (Auto) (0.1 - 0.8 x10 3/uL) 0.46 Eos # (Auto) (0.0 - 0.2 x10 3/uL) 0.17 Baso # (Auto) (0.0 - 0.2 x10 3/uL) 0.04 Abs Immat Gran (auto) (0.00 - 0.03 x10 3/uL) 0.04 H Immature Gran % (0.0 - 2.0 %) 0.5 Nucleated RBC % (0 - 0 %) 0.0 Nucleated RBCs # (Man) (0.0 - 0.1 x10 3/uL) 0.00 Laboratory Tests 06/23 1720 Urines Urine Color (YEL/STRAW) YELLOW Urine Appearance (CLEAR) CLEAR Urine pH (5.0 - 7.0) 6.0 Ur Specific [place] (1.005 - 1.030) 1.014 Urine Protein (NEGATIVE) NEGATIVE Urine Glucose (UA) (NEGATIVE) NEGATIVE Urine Ketones (NEGATIVE) NEGATIVE Urine Blood (NEGATIVE) NEGATIVE Urine Nitrite (NEGATIVE) NEGATIVE Urine Bilirubin (NEGATIVE) NEGATIVE Urine Urobilinogen (0.2 - 1.0 mg/dL) 0.2 Ur Leukocyte Esterase (NEGATIVE) NEGATIVE Urine RBC (0 - 3 RBC/HPF) 0-3 Urine WBC (0 - 3 WBC/HPF) 0-3 Ur Squamous Epith Cells (NONE SEEN /HPF) NONE SEEN Urine Bacteria (NONE SEEN /HPF) NONE SEEN Urine Mucus (NONE SEEN /LPF) TRACE Microbiology Date/Time Procedure - Status Source Growth 06/23 164 MSSA Surveillance Screen - COMP NASAL 06/23 164 MRSA DNA Surveillance Screen - COMP NASAL Radiology data: Recent Impressions: CAT SCAN - CT CHEST W/O CONTRAST 06/23 1348 Report Impression - Status: SIGNED Entered: 06/23/2024 1421 IMPRESSION: No acute abnormality in the chest. Normal heart size. Coronary artery calcifications, especially LAD. Sternum and upper sternal area intact. COPD but no acute infiltrates. Location: H27 Impression By: [email or web address] - Kyle Art M.D. ULTRASOUND - US EXTREM NON VASC COMP 06/23 1521 Report Impression - Status: SIGNED Entered: 06/23/2024 1601 IMPRESSION: The bilateral greater saphenous veins demonstrate normal compressibility throughout. AP Diameter measurements are detailed below. Right Leg Proximal Thigh: 0.39 cm Mid Thigh: 0.32 cm Distal thigh: 0.2 cm Knee level: 0.18 cm Proximal calf: 0.23 cm Mid calf: 0.20 cm Distal calf: 0.19 cm Left Leg Proximal Thigh: 0.32 cm Mid Thigh: 0.23 cm Distal thigh: 0.21 cm Knee level: 0.17 cm Proximal calf: 0.23 cm Mid calf: 0.20 cm Distal calf: 0.16 cm Impression By: [email or web address] - Alcides Colón M.S. ULTRASOUND - DUP EXTRACRANIAL YOHANNES 06/23 1521 Report Impression - Status: SIGNED Entered: 06/23/2024 1542 IMPRESSION: Minimal atherosclerotic disease within the bilateral carotid bifurcations. Elevated velocities noted in the left ICA corresponding to 50-69% stenosis. No flow limiting stenosis of the head on the right. LOCATION: B2 Impression By: Aaliyah - Elisabeth Angulo M.D. Results: labs reviewed, vital signs stable, familia personally rev'd, current med profile rev'd Treatment Prophylaxis Treatment Prophylaxis CVC/PICC documentation: The data below has been imported from nursing documentation. Any exceptions have been noted below under Provider comments. CVC/PICC insertion date/time: Provider comments on imported nursing data: [] Quality: Trauma Gen Surg Advanced Care Plan 65 or Older Discussed with: patient Current Medications Current medication review: I attest that the foregoing medication list in the medical record is true, accurate, and complete to the best of my knowledge. Diagnosis, Assessment Plan Hospital course to date: Patient is a 73 [id number] with a past medical history of hypertension, hyperlipidemia (noncompliant with medication), coronary artery disease, COPD, hiatal hernia, heart attack (April 2024), and uses nicotine daily (smokes a Pap now) who presented to the ER complaining of feeling bad, minimal chest pain, shortness of breath, and general fatigue. Patient was scheduled to see Dr. Zaragoza for an appointment for evaluation of coronary artery bypass graft surgery and stated he did not think he could make it till then. Patient was recently in the hospital for a heart attack, and placed on Plavix (last taken ), and ASA. Patient states earlier this week that he was not feeling well, and would check his BP and HR, noticing fluctuating blood pressures as well as irregular heartbeat. Patient denies drinking. Patient denies chest pain and shortness of breath. Assessment/Plan: 1. Coronary artery disease 2. Hypertension 3. Hyperlipidemia 4. COPD Workup for CABG initiated CT chest Carotid Ultrasound DUP VEIN YOHANNES Mapping and Marking Daily labs Monitor BP Denies chest pain and shortness of breath TEG Patient seen and evaluated by Dr. Zaragoza. Patient understands plan of care. All questions answered. 06/24/24 Patient alert, awake, oriented, denies any chest pain Labs reviewed, prealbumin 19.[address] chest shows COPD Urinalysis negative Hemoglobin A1c 5.5 Coronary angiogram CD uploaded to [facility] cardio Timing of surgery pending Carotid Dopplers done shows left carotid artery stenosis 50 to 69% Last dose Plavix 06/20, check platelet mapping ADP 53.2, inhibition 20.2% Transfer to 1 Patient seen and examined by Dr. Zaragoza, discussed plan of care with patient, all the patient's questions were answered Consultants: cardiology Code status: full code Plan discussed with: patient, collaborating MD, nurse at 1251 at 2301 RPT #:[id number] END OF REPORT [facility] 2024-06-23 13:21:00 [facility] Cardiology Consultation REPORT#:[id number] REPORT STATUS: Signed REPORT INITIALIZATION DATE:06/23/24 TIME: 1321 PATIENT: SHARONA LANDERS UNIT #: [id number] ROOM/BED: [place] [id number] : 49 AGE: 73 SEX: M ATTEND: Nathaly Zaragoza MD ADM AUTHOR: Annia Richardson [facility] REPT SERVICE DT/TIME: 06/23/24 1321 * ALL edits or amendments must be made on the electronic/computer document * Annia Richardson 06/23/24 1321: History of Present Illness HPI Requesting Clinician: Reason for consult: CAD, elevated troponin Chief complaint: Fluctuating blood pressure, irregular heart rate noted on BP monitor, and generalized weakness PCP: PCP: Undefined Provider HPI: 73 YO male with MH of HTN, LA, and newly discovered multivessel CAD. He was at [facility] on 06/11/2024 due to fluctuating blood pressure. Had abnormal troponin ruled in for NSTEMI. Underwent LHC that showed significant multivessel CAD including the LAD,diagonal, mid left circ, and mid RCA. He was discharged home and was supposed to see CT surgery outpatient for CABG evaluation. However, he did not fell that night before, with generalized weakness and fluctuating blood pressure, and he decided to come to [facility] ED with the help of his neighbor. Troponin slightly elevated. We are called for cardiac evaluation. Hx Obtained From Patient History - Adult longitudinal Past medical history: Reports: Hypertension. Additional surgical history: Denies PSH Additional family history: Noncontributory Alcohol use: Denies EtOH use Drug use: Denies recreational drugs Home medications: Home Medications: METOPROLOL TARTRATE (LOPRESSOR) 25 MG PO BID CLOPIDOGREL (PLAVIX) 75 MG PO DAILY Allergies: Coded Allergies: iodine (HIVES 06/22/24) Ambulatory status: Independent Review of Systems Additional notes: As stated in HPI Objective General VS/I O: Vital Signs: Date Time Temp Pulse Resp B/P B/P Pulse O2 O2 Flow FiO2 Mean Ox Delivery Rate 06/23 1119 36.8 58 20 118/67 84.1 100 Room air 06/23 0721 36.8 51 17 145/71 95.7 99 06/23 0606 36.5 49 15 151/75 100.1 100 06/23 0023 36.7 55 15 145/72 96.4 100 06/22 2142 36.5 60 17 162/76 105.0 100 06/22 2031 19 06/22 2030 50 181/89 125 100 06/22 2010 51 20 187/83 131 100 06/22 2000 50 18 189/95 135 100 06/22 1940 50 11 190/94 134 100 06/22 1935 50 17 176/93 130 100 06/22 1920 98 Room air 06/22 1915 36.8 50 16 194/93 126 Room air 24 hour I O ending at 0700: 06/23 0700 06/22 1900 Intake Total Output Total Balance Patient 61.1 kg Weight Weight Bed scale Measurement Method PATIENT WEIGHT: Weight (lb): Weight (oz): Weight (kg): 61.100 Medications: Active Meds + DC'd Last 24 Hrs Hydralazine HCl (APRESOLINE) 10 MG Q6H PRN PRN IV Aspirin (ASPIRIN) 324 MG X1ED STA PO (DC) Physical Exam General appearance: alert, awake, oriented Neck: full range of motion, non-tender, normal thyroid, supple/no meningismus, no bruit/NL carotids, no JVD, no lymphadenopathy, no masses or swelling Cardiovascular: CV assessment: regular rate and rhythm, BP pulses = bilaterally, normal heart sounds Respiratory: clear to auscultation, no distress Abdomen: soft, non-tender, normal bowel sounds Genitourinary: no flank pain, no urinary catheter Lower extremity: LE assessment: normal capillary refill, no edema Musculoskeletal: normal inspection Neuro/DELIVERY OF SHOPPING NEWS: alert, oriented X 3, normal reflexes Skin: dry, intact, normal color Psychiatry: normal affect, normal judgment/insight, normal mood Results Findings/Data: Laboratory Tests 06/22 Chemistry Sodium (134 - 147 mEq/L) 133 L Potassium (3.4 - 5.0 mEq/L) 4.2 Chloride (100 - 108 mEq/L) 103 Carbon Dioxide (21 - 33 mEq/l) 27 Anion Gap (0 - 20) 7 BUN (7 - 25 mg/dL) 14 Creatinine (0.6 - 1.3 mg/dL) 1.1 Glomerular Filtr Rate (70 - 80) 70.4 Glucose (77 - 141 mg/dL) 100 Calcium (8.0 - 10.5 mg/dL) 9.3 Magnesium (1.6 - 2.6 mg/dL) 2.08 Troponin I High Sens (0 - 54 ng/L) 87 H 90 H B-Natriuretic Peptide (0 - 100 PG/ML) 124.0 H LDL Cholesterol Measurd (0 - 100 mg/dL) 139.0 H Lipase (13 - 57 U/L) 49 Laboratory Tests 06/22 1930 Hematology WBC (4.5 - 11.0 x10 3/uL) 7.1 RBC (4.00 - 5.60 x10 6/uL) 3.99 L Hgb (12.5 - 16.9 g/dL) 12.9 Hct (37.5 - 50.7 %) 39.9 MCV (81.0 - 99.0 fL) 100.0 H MCH (27.0 - 33.0 pg) 32.3 MCHC (33.0 - 37.0 g/dL) 32.3 L RDW (11.5 - 14.5 %) 13.5 Plt Count (150 - 400 x10 3/uL) 224 MPV (7.0 - 9.0 fL) 8.3 Neut % (Auto) (56.0 - 77.0 %) 68.7 Lymph % (Auto) (14.0 - 32.0 %) 22.2 Stewart % (Auto) (4.8 - 9.0 %) 6.7 Eos % (Auto) (0.3 - 3.7 %) 1.8 Baso % (Auto) (0.0 - 2.0 %) 0.3 Neut # (Auto) (2.0 - 7.6 x10 3/uL) 4.85 Lymph # (Auto) (1.0 - 3.8 x10 3/uL) 1.57 Stewart # (Auto) (0.1 - 0.8 x10 3/uL) 0.47 Eos # (Auto) (0.0 - 0.2 x10 3/uL) 0.13 Baso # (Auto) (0.0 - 0.2 x10 3/uL) 0.02 Abs Immat Gran (auto) (0.00 - 0.03 x10 3/uL) 0.02 Immature Gran % (0.0 - 2.0 %) 0.3 Nucleated RBC % (0 - 0 %) 0.0 Nucleated RBCs # (Man) (0.0 - 0.1 x10 3/uL) 0.00 Laboratory Tests 06/22 193 Chemistry Magnesium (1.6 - 2.6 mg/dL) 2.08 Troponin I High Sens (0 - 54 ng/L) 87 H 90 H B-Natriuretic Peptide (0 - 100 PG/ML) 124.0 H Radiology Data: Recent Impressions: RADIOLOGY - XR CHEST 1 V 06/22 1935 Report Impression - Status: SIGNED Entered: 06/22/20242003 IMPRESSION: No acute cardiopulmonary process COPD with probable bullous changes in the upper lobes Findings having the appearance of a skin fold along the right hemithorax superiorly with lung markings seen peripheral to this. Impression By: Lazaro - Jia Hatfield M.D. Results: labs reviewed, vital signs reviewed Diagnosis, Assessment Plan Problem List/A P: 1. CAD (coronary artery disease) Plan discussed with: patient, collaborating MD, nurse Free Text DxA P Notes Free Text DxA P Notes: 73 YO male with MH of HTN, LA, and newly discovered multivessel CAD. He was at [facility] on 06/11/2024 due to fluctuating blood pressure. Had abnormal troponin ruled in for NSTEMI. Underwent LHC that showed significant multivessel CAD including the LAD,diagonal, mid left circ, and mid RCA. He was discharged home and was supposed to see CT surgery outpatient for CABG evaluation. However, he did not fell that night before, with generalized weakness and fluctuating blood pressure, and he decided to come to [facility] ED with the help of his neighbor. Troponin slightly elevated. We are called for cardiac evaluation. 1. Recent NSTEMI/Multivessel CAD * CABG evaluation ongoing * last dose of Plavix 06/20/24 * ASA, BB, statin 2. Elevated troponin likely residual of recent NSTEMI * Troponin trend 90->87 * no chest pain * start ASA 81 mg daily * restart home medication metoprolol 3. Hypertension * BP elevated on presentation * resume metoprolol 25 mg BID * start Valsartan 160 mg daily * Hydralazine 10 mg Q6H PRN for SBP> 170 mmHg Appreciate the referral. MDM by Dr. Colby. Terry Colby 06/25/24 1338: Attestations Physician Attestation Agree w/findings plan: I have seen and examined the pt, I Agree with the findings and plan as documented by Annia Richardson. Case discussed with CT surgery and referring sack filler patient has intermediate disease in the proximal LAD and severe disease in the circumflex and RCA. Plan to do FFR of the LAD and then if it is significant can consider CABG versus multivessel PCI. If FFR of the LAD is negative then we will proceed with PCI to the left circumflex and RCA. Continue aspirin and statin. at 1710 at 1330 RPT #:[id number] END OF REPORT [facility] 2024-06-23 13:13:00 [facility] ([facility]) History Physical - Adult REPORT#:[id number] REPORT STATUS: Signed REPORT INITIALIZATION DATE:06/23/24 TIME: 1313 PATIENT: SHARONA LANDERS UNIT #: [id number] ROOM/BED: [place] [id number] : 49 AGE: 73 SEX: M ATTEND: Nathaly Zaragoza MD ADM AUTHOR: Betsy RamseyMOLD CLEANING AND STORAGE SUPERVISOR REPT SERVICE DT/TIME: 06/23/24 1313 * ALL edits or amendments must be made on the electronic/computer document * Betsy Ramsey 06/23/24 1313: History of Present Illness HPI Chief complaint: CAD fatigue PCP: PCP: Undefined Provider HPI: Patient is a 73 [id number] with a past medical history of hypertension, hyperlipidemia (noncompliant with medication), coronary artery disease, COPD, hiatal hernia, heart attack (April 2024), and uses nicotine daily (smokes a Pap now) who presented to the ER complaining of feeling bad, minimal chest pain, shortness of breath, and general fatigue. Patient was scheduled to see Dr. Zaragoza for an appointment for evaluation of coronary artery bypass graft surgery and stated he did not think he could make it till then. Patient was recently in the hospital for a heart attack, and placed on Plavix (last taken ), and ASA. Patient states earlier this week that he was not feeling well, and would check his BP and HR, noticing fluctuating blood pressures as well as irregular heartbeat. Patient denies drinking. Patient denies chest pain and shortness of breath. Hx Obtained From Patient History Past medical history: Reports: Coronary artery disease, Hypertension, Dyslipidemia. Additional medical history: hiatal hernia Additional surgical history: facial surgery, R femur surgery Drug use: Denies recreational drugs Smoking status for patients 13 years old or older: Current every day smoker ( smokes Pap) Medication/Allergy-Vaccine Hx Allergies: Coded Allergies: iodine (HIVES 06/22/24) Review of Systems Constitutional: Reports: fatigue, generalized weakness, lethargy. Denies: chills, fever. Respiratory: Denies: MACE (dyspnea on exertion), hemoptysis, non productive cough. Cardiovascular: Denies: chest pain, MACE (dyspnea on exertion). All systems rev neg: except as marked Physical Exam VS/I O Vital Signs: Date Time Temp Pulse Resp B/P B/P Pulse O2 O2 Flow FiO2 Mean Ox Delivery Rate 06/23 1119 98.2 58 20 118/67 84.1 100 Room air 06/23 0721 98.2 51 17 145/71 95.7 99 06/23 0606 97.7 49 15 151/75 100.1 100 06/23 0023 98.1 55 15 145/72 96.4 100 06/22 2142 97.7 60 17 162/76 105.0 100 06/221 19 06/22 2030 50 181/89 125 100 06/22 2010 51 20 187/83 131 100 06/22 2000 50 18 189/95 135 100 06/22 194 50 11 190/94 134 100 06/22 1935 50 17 176/93 130 100 06/22 1920 98 Room air 06/22 1915 98.2 50 16 194/93 126 Room air 24 hour I O ending at 0700: 06/23 0706/22 Intake Total Output Total Balance Patient 61.1 kg Weight Weight Bed scale Measurement Method PATIENT WEIGHT: Weight (lb): Weight (oz): Weight (kg): 61.100 General appearance: alert, awake, oriented Head/Eyes: atraumatic, clear cornea ENT: moist mucosal membranes, normal dentition Neck: full range of motion, non-tender Cardiovascular: normal capillary refill, normal heart sounds Respiratory: clear to auscultation, no distress Abdomen/GI: active bowel sounds, soft Genitourinary: urine Extremities: moves all, no edema-all extremities, normal capillary refill Neuro/DELIVERY OF SHOPPING NEWS: alert, oriented X 3 Results Findings/Data: Laboratory Tests: 06/22 Chemistry Troponin I High Sens (0 - 54 ng/L) 87 H B-Natriuretic Peptide (0 - 100 PG/ML) 124.0 H LDL Cholesterol Measurd (0 - 100 mg/dL) 139.0 H 06/22 1930 Chemistry Sodium (134 - 147 mEq/L) 133 L Potassium (3.4 - 5.0 mEq/L) 4.2 Chloride (100 - 108 mEq/L) 103 Carbon Dioxide (21 - 33 mEq/l) 27 Anion Gap (0 - 20) 7 BUN (7 - 25 mg/dL) 14 Creatinine (0.6 - 1.3 mg/dL) 1.1 Glomerular Filtr Rate (70 - 80) 70.4 Glucose (77 - 141 mg/dL) 100 Calcium (8.0 - 10.5 mg/dL) 9.3 Magnesium (1.6 - 2.6 mg/dL) 2.08 Troponin I High Sens (0 - 54 ng/L) 90 H Lipase (13 - 57 U/L) 49 Hematology WBC (4.5 - 11.0 x10 3/uL) 7.1 RBC (4.00 - 5.60 x10 6/uL) 3.99 L Hgb (12.5 - 16.9 g/dL) 12.9 Hct (37.5 - 50.7 %) 39.9 MCV (81.0 - 99.0 fL) 100.0 H MCH (27.0 - 33.0 pg) 32.3 MCHC (33.0 - 37.0 g/dL) 32.3 L RDW (11.5 - 14.5 %) 13.5 Plt Count (150 - 400 x10 3/uL) 224 MPV (7.0 - 9.0 fL) 8.3 Neut % (Auto) (56.0 - 77.0 %) 68.7 Lymph % (Auto) (14.0 - 32.0 %) 22.2 Stewart % (Auto) (4.8 - 9.0 %) 6.7 Eos % (Auto) (0.3 - 3.7 %) 1.8 Baso % (Auto) (0.0 - 2.0 %) 0.3 Neut # (Auto) (2.0 - 7.6 x10 3/uL) 4.85 Lymph # (Auto) (1.0 - 3.8 x10 3/uL) 1.57 Stewart # (Auto) (0.1 - 0.8 x10 3/uL) 0.47 Eos # (Auto) (0.0 - 0.2 x10 3/uL) 0.13 Baso # (Auto) (0.0 - 0.2 x10 3/uL) 0.02 Abs Immat Gran (auto) (0.00 - 0.03 x10 3/uL) 0.02 Immature Gran % (0.0 - 2.0 %) 0.3 Nucleated RBC % (0 - 0 %) 0.0 Nucleated RBCs # (Man) (0.0 - 0.1 x10 3/uL) 0.00 Radiology data: Recent Impressions: RADIOLOGY - XR CHEST 1 V 06/22 1935 Report Impression - Status: SIGNED Entered: 06/22/20242003 IMPRESSION: No acute cardiopulmonary process COPD with probable bullous changes in the upper lobes Findings having the appearance of a skin fold along the right hemithorax superiorly with lung markings seen peripheral to this. Impression By: Lazaro - Jia Hatfield M.D. Results: labs reviewed, vital signs reviewed, vital signs stable, rhythm personally rev'd, current med profile rev'd Diagnosis, Assessment Plan Plan discussed with: patient Code Status/Resusc. Discussion Resuscitation discussion: Discussed with: patient Code status: full code Free Text DxA P Notes Free Text DxA P Notes: Patient is a 73 [id number] with a past medical history of hypertension, hyperlipidemia (noncompliant with medication), coronary artery disease, COPD, hiatal hernia, heart attack (April 2024), and uses nicotine daily (smokes a Pap now) who presented to the ER complaining of feeling bad, minimal chest pain, shortness of breath, and general fatigue. Patient was scheduled to see Dr. Zaragoza for an appointment for evaluation of coronary artery bypass graft surgery and stated he did not think he could make it till then. Patient was recently in the hospital for a heart attack, and placed on Plavix (last taken ), and ASA. Patient states earlier this week that he was not feeling well, and would check his BP and HR, noticing fluctuating blood pressures as well as irregular heartbeat. Patient denies drinking. Patient denies chest pain and shortness of breath. Assessment/Plan: 1. Coronary artery disease 2. Hypertension 3. Hyperlipidemia 4. COPD Workup for CABG initiated CT chest Carotid Ultrasound [employer]OH[employer] Mapping and Marking Daily labs Monitor BP Denies chest pain and shortness of breath TEG Patient seen and evaluated by Dr. Zaragoza. Patient understands plan of care. All questions answered. Nathaly Zaragoza 06/24/24 8050: Attestations Physician Attestation Agree w/findings plan: I have seen and examined Mr Vargas. I agree with the findings and plan as documented by JUDD Banuelos. Briefly, 73 YO male with significant CAD, being transferred from an outside facility for surgical evaluation. LAD has 60% stenosis and significant disease in the OM and RCA. Patient needs FFR of the LAD to better evaluate the stenosis in the LAD. at 1335 at 9519 RPT #:[id number] END OF REPORT [facility] 2024-06-22 19:31:00 [facility] ([facility]) EMERGENCY PROVIDER REPORT REPORT#:[id number] REPORT STATUS: Signed DATE:06/22/24 TIME: 1930 PATIENT: SHARONA LANDERS UNIT #: [id number] ROOM/BED: [place] [address] AGE: 73 SEX: M PCP PHYS: Undefined Provider SERVICE AUTHOR: Sheila Elizabeth DO * ALL edits or amendments must be made on the electronic/computer document * Sheila Elizabeth 06/22/241930: HPI-General Illness Free Text HPI Notes Free Text HPI Notes Patient arrives complaining that he "feels bad". Patient states that his thoracic surgeon, Dr. Zaragoza, and has recommended him for bypass surgery and that he has a follow-up appointment with him on Wednesday, but patient states that he was just feeling bad today and did not feel like he can make it until Wednesday. Patient has a difficult time explaining what he means by saying he feels bad, but does endorse some chest pain, shortness of breath, general malaise. Patient also notes fluctuating blood pressures as well as irregular heartbeat occasionally. Patient does not endorse any specific complaints at this time that made the symptoms specifically worse, only noting that he just did not feel he could make it until Wednesday for his regularly scheduled appointment. Patient denies fevers, denies abdominal pain, denies cough, denies any other specific complaints. General Initial Greet Date/Time 06/22/241903 Presentation Chief Complaint "I feel bad" Review of Systems ROS Statements All systems rev neg except as marked. Free Text ROS Notes Free Text ROS Notes Constitutional Denies: Fever, Reports general weakness Eyes Denies: Blurred bilat, Discharge bilat. Ears/Nose/Throat Denies: Earache bilat, Nasal congestion. Respiratory Reports shortness of breath, denies wheezing. Cardiovascular Reports chest pain and need for bypass surgery GI Denies: Abdominal pain, Nausea, Vomiting. Musculoskeletal Denies: Back pain, Neck pain. Hematologic Denies: Bleeding, Bruising. Skin Denies: Abscess, Rash. Neurologic Denies: Dizziness, Seizure, Syncope. Psychiatric Denies: Hallucinations, auditory, Hallucinations, visual, Suicidal ideation Past Medical History - Adult Stated Complaint SOB/CP Allergies Coded Allergies: iodine (HIVES 06/22/24) Smoking status for patients 13 years old or older: Current every day smoker Physical Exam Vital Signs Vital Signs First Documented: Result Date Time B/P 19406/22 B/P Mean 126 06/22 1915 O2 Delivery Room air 06/22 1915 Temp 36.8 06/22 1915 Pulse 50 06/22 1915 Resp 16 06/22 1915 Pulse Ox 98 06/22 1920 Last Documented: Result Date Time Pulse Ox 100 06/22 2010 B/P 187/83 06/22 2010 B/P Mean 131 06/22 2010 Pulse 51 06/22 2010 Resp 20 06/22 2010 O2 Delivery Room air 06/22 1920 Temp 36.8 06/22 1915 Review of Vital Signs Reviewed Basic Physical Exam Basic PE GEN: Well appearing/NAD, HEAD: Atraumatic/NC, EYES: PERRL, conj clear, ENT: Membranes moist, NECK: Supple, RESP: No resp distress, CV: Reg rate rhythm, ABD: Soft/non-tender, EXT: No gross abnormality, SKIN: No rashes, warm/ dry, NEURO: alert oriented, NEURO: gross movement NL, PSYCH: NL thought content Interpretation Diagnostics ECG #1 Interpretation Text/Dict Note Sinus bradycardia with a right axis ECG Documented in MUSE Yes Date 06/22/24 Time 1914 Interpreted by and reviewed by me, Independently interpreted, ED physician NL ECG Interpretation No acute ischemic changes, No STEMI, Normal QRS, Normal ST waves, Normal T waves, Normal axis, Normal intervals Rate 51 Re-Evaluation MDM Differential Diagnosis Differential Diagnosis ACS, angina, PNA, covid, URI, PE, PTX Patient Discharge Departure Vital Signs/Condition Vital Signs First Documented: Result Date Time B/P 19406/22 B/P Mean 126 06/22 1915 O2 Delivery Room air 06/22 1915 Temp 36.8 06/22 1915 Pulse 50 06/22 1915 Resp 16 06/22 1915 Pulse Ox 98 06/22 1920 Last Documented: Result Date Time Pulse Ox 100 06/22 2010 B/P 187/83 06/22 2010 B/P Mean 131 06/22 2010 Pulse 51 06/22 2010 Resp 20 06/22 2010 O2 Delivery Room air 06/22 1920 Temp 36.8 06/22 1915 All vital signs available at the time of this entry have been reviewed. Pt/Provider Handoff Shift Change Note This patient's care has been transferred to the incoming physician. We discussed : the patient's chief complaint; labs and imaging that have been completed and those that are still pending; procedures that have been completed and those remaining to be done; any treatment provided and the patient's response to treatment; input from consultants (if any); the remaining treatment plan. The incoming physician will follow up on all pending labs and imaging, make any necessary changes to the current impression and/or treatment plan and provide a final disposition. Care Transferred to Dr. Saldaña Care Transferred at 1999 Discussed Complaint(s) Yes Laboratory Evaluation Ordered, not yet done Imaging Studies Ordered, not yet done Kishan Saldaña 06/22/242008: HPI-General Illness General PCP CT Surgeon Dr Zaragoza Interpretation Diagnostics Lab Results Interpretation Results Laboratory Tests 06/22/241929: [Embedded Image Not Available] Laboratory Tests: 06/22 Chemistry Sodium (134 - 147 mEq/L) 133 L Potassium (3.4 - 5.0 mEq/L) 4.2 Chloride (100 - 108 mEq/L) 103 Carbon Dioxide (21 - 33 mEq/l) 27 Anion Gap (0 - 20) 7 BUN (7 - 25 mg/dL) 14 Creatinine (0.6 - 1.3 mg/dL) 1.1 Glomerular Filtr Rate (70 - 80) 70.4 Glucose (77 - 141 mg/dL) 100 Calcium (8.0 - 10.5 mg/dL) 9.3 Magnesium (1.6 - 2.6 mg/dL) 2.08 Troponin I High Sens (0 - 54 ng/L) 90 H B-Natriuretic Peptide (0 - 100 PG/ML) 124.0 H LDL Cholesterol Measurd (0 - 100 mg/dL) 139.0 H Lipase (13 - 57 U/L) 49 Hematology WBC (4.5 - 11.0 x10 3/uL) 7.1 RBC (4.00 - 5.60 x10 6/uL) 3.99 L Hgb (12.5 - 16.9 g/dL) 12.9 Hct (37.5 - 50.7 %) 39.9 MCV (81.0 - 99.0 fL) 100.0 H MCH (27.0 - 33.0 pg) 32.3 MCHC (33.0 - 37.0 g/dL) 32.3 L RDW (11.5 - 14.5 %) 13.5 Plt Count (150 - 400 x10 3/uL) 224 MPV (7.0 - 9.0 fL) 8.3 Neut % (Auto) (56.0 - 77.0 %) 68.7 Lymph % (Auto) (14.0 - 32.0 %) 22.2 Stewart % (Auto) (4.8 - 9.0 %) 6.7 Eos % (Auto) (0.3 - 3.7 %) 1.8 Baso % (Auto) (0.0 - 2.0 %) 0.3 Neut # (Auto) (2.0 - 7.6 x10 3/uL) 4.85 Lymph # (Auto) (1.0 - 3.8 x10 3/uL) 1.57 Stewart # (Auto) (0.1 - 0.8 x10 3/uL) 0.47 Eos # (Auto) (0.0 - 0.2 x10 3/uL) 0.13 Baso # (Auto) (0.0 - 0.2 x10 3/uL) 0.02 Abs Immat Gran (auto) (0.00 - 0.03 x10 3/uL) 0.02 Immature Gran % (0.0 - 2.0 %) 0.3 Nucleated RBC % (0 - 0 %) 0.0 Nucleated RBCs # (Man) (0.0 - 0.1 x10 3/uL) 0.00 Recent Impressions: RADIOLOGY - XR CHEST 1 V 06/22 1935 Report Impression - Status: SIGNED Entered: 06/22/20242003 IMPRESSION: No acute cardiopulmonary process COPD with probable bullous changes in the upper lobes Findings having the appearance of a skin fold along the right hemithorax superiorly with lung markings seen peripheral to this. Impression By: Lazaro - Jia Hatfield M.D. Re-Evaluation MDM Free Text MDM Notes Free Text MDM Notes 73-year-old male, was planning for a bypass surgery, has follow-up appointment Wednesday -Patient overall feeling unwell, endorses chest pain, shortness of breath, general malaise. -Consider CHF, ACS, pneumonia, other viral syndrome. -Given age and risk factors, will pending final disposition once labs and x-ray results. 2008 troponin positive at 90, will continue to monitor and trend. Will discuss with Dr. Zaragoza, will adm ED Course Medication(s) Ordered Medication(s) Ordered: Central Nervous System Agents Sig/Leni Start time Last Medication Dose Route Stop Time Status Admin Aspirin 324 MG X1ED STA 06/22 2011 DC 06/22 PO 06/22 Patient Discharge Departure Clinical Impression Clinical Impression Primary Impression: Elevated troponin I level Secondary Impressions: Malaise and fatigue Disposition Decision Hospitalize Hosp Physician Name Nathaly Zaragoza MD )( Accepts Hospitalization Yes )( Reason for Hospitalization elevated trop )( Accepted Time 2010 )( Accepted Date 06/22/24 Call Information agrees with eval, agrees with plan at 4358 RPT #:[id number] END OF REPORT [facility]
[2024-07-02 14:57] LABS: Absolute Eosinophils 0.1 K/uL (0-0.5); Absolute Lymphocytes (CBC) 1.3 K/uL (0.7-4.9); Absolute Monocytes 0.4 K/uL (0.1-1.3); Absolute Neutrophil 4.1 K/uL (1.8-8.0); Basophils % 0.7 % (0-1.3); Eosinophils % 1.7 % (0-4.4); Hemoglobin 12.2 g/dL (13.6-17.9); Lymphocytes % 22.1 % (15.3-44.8); MCH 32.3 pg (27.0-35.0); MCHC 33.1 g/dL (32.0-36.0); MCV 97.7 fL (80-100); MPV 7.1 fL (7.6-11.3); Monocytes % 7.2 % (3.3-12.3); Neutrophils % 68.3 % (41.7-73.7); Platelets 271 thou/uL (152-406); RBC Red Blood Cell Count 3.79 M/uL (4.33-5.43); Red Cell Distribution Width 13.6 % (12.1-15.2)
[2024-07-02 15:15] LABS: Anion Gap 4.1 mEq/L (5.0-15.0); Potassium 4.1 mEq/L (3.5-5.1)
[2024-07-02 15:35] LABS: Troponin High Sensitivity 322.2 pg/mL (<58.9)
--- NOTE | 2024-07-02 16:25 | RAD REPORT ---
EXAM DESCRIPTION: RADChest Single View07/02/2024 2:50 pm CLINICAL HISTORY: cough COMPARISON: Chest Single View dated 04/30/2024 TECHNIQUE: Portable AP view of the chest. FINDINGS: The lungs are clear. No pneumothorax or effusion. The cardiomediastinal contours are unre markable. IMPRESSION: No acute cardiopulmonary process.
--- NOTE | 2024-07-02 17:28 | EDPHYS ---
Physician Documentation [facility] Name: Benjamin Jackson Age: 73 yrs Sex: Male : 1950 Arrival Date: 07/02/2024 Time: 13:59 Bed 15 Private MD: ED Physician Dillan Estrella HPI: 07/02 15:00 This 73 yrs old Male presents to ER via Ambulatory with complaints of Blood ec2 Pressure Problem. 15:00 Patient arrives today for evaluation of his blood pressure. States that he has been ec2 taking serial blood pressures and noted waxing and waning blood pressure is increasing and decreasing along with his heart rate. Patient reports no symptoms. Denies chest pain difficulty breathing.. Historical: - Allergies: 14:11 Iodine; aa5 - PMHx: 14:11 Hernia; Hypertensive disorder; Kidney stones; Myocardial infarction; aa5 - PSHx: 14:11 leg; aa5 - Immunization history:: Adult Immunizations unknown. - Infectious Disease History:: Denies. - Social history:: Smoking status: Patient reports the use of cigarette tobacco products. ROS: 15:00 Constitutional: as per hpi ec2 Exam: 15:00 Constitutional: GEN: NAD Head: atraumatic Eyes: EOMI Ears: External ears are ec2 normal. CV: regular rate LUNGS: no respiratory distress ABD: non-distended SKIN: no evidence of rashes MSK: no evidence of trauma NEURO: moves all extremities equally Vital Signs: 14:11 BP 132 / 87; Pulse 88; Resp 18 S; Temp 97.2(TE); Pulse Ox 100% ; Weight 54.43 kg (R); aa5 Height 5 ft. 6 in. (R); 14:20 BP 132 / 87; Pulse 86; Pulse Ox 100% ; ec2 14:47 BP 123 / 73; Pulse 65; Resp 16 S; Pulse Ox 100% on R/A; kc6 15:22 BP 140 / 74; Pulse 68; ec2 15:29 BP 122 / 74; Pulse 65; Resp 16 S; Pulse Ox 99% on R/A; kc6 16:38 BP 128 / 75; Pulse 54; Resp 14 S; Pulse Ox 99% on R/A; Pain 0/10; kc6 17:45 BP 138 / 82; Pulse 55; Resp 16; Temp 98.2(O); Pulse Ox 99% on R/A; Pain 0/10; tl4 14:11 Body Mass Index 19.37 (54.43 kg, 167.64 cm) aa5 16:38 Pain Scale: Adult kc6 17:45 Pain Scale: Adult tl4 MDM: 14:12 Patient medically screened. ec2 14:44 Data reviewed: vital signs. ED course: EKG independently reviewed and interpreted by ec2 me, shows normal sinus rhythm, rate of 79, no acute ST segment elevations, intervals are nonconcerning, PVC noted.. 15:00 ED course: Patient arrives today for evaluation of his blood pressure. Examination ec2 remarkable for well-appearing nontoxic individual is otherwise in no acute distress. Will obtain lab work, chest x-ray. Differential includes arrhythmia, electrolyte disturbances, anemia.. 15:26 ED course: Patient with Trope elevation, previous troponin at 163 as well as 125. Will ec2 obtain a repeat EKG and troponin at the 2-hour leland. Patient is asymptomatic without chest pain or shortness of breath or chest pain equivalent. . 15:43 ED course: External records reviewed by me, shows that patient had 40 to 50% disease of ec2 the LAD along with 40-50% disease of the second diagonal. Patient had PCI to the circumflex . 15:44 ED course: Metabolic profile shows slight hyponatremia. Troponin is expectedly elevated ec2 at 322 given recent procedure. Will obtain repeat EKG and troponin. Patient remains without chest pain or chest pain equivalent.. 16:25 ED course: EKG independently reviewed and interpreted by me, shows normal sinus rhythm, ec2 rate of 56, no acute ST segment elevations, intervals are nonconcerning, PVC noted. When compared to initial EKG, appears grossly unchanged.. 17:18 ED course: Repeat troponin is downtrending to 90. Patient remains chest pain-free, no ec2 chest pain equivalent. Is in no acute distress. 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 07/02 14:55 Order name: Basic Metabolic Panel; Complete Time: 15:44 EDMS 07/02 14:55 Order name: Troponin High Sensitivity; Complete Time: 15:44 EDMS 07/02 14:55 Order name: CBC with Automated Diff; Complete Time: 15:25 EDMS 08/04 16:15 Order name: Troponin High Sensitivity; Complete Time: 17:17 kc6 07/02 14:18 Order name: Chest Single View; Complete Time: 16:29 EDMS 07/02 14:15 Order name: EKG; Complete Time: 15:49 ec2 07/02 14:15 Order name: Cardiac monitoring; Complete Time: 14:32 ec2 07/02 14:15 Order name: EKG - Nurse/Tech; Complete Time: 14:32 ec2 07/02 14:15 Order name: IV Saline Lock; Complete Time: 14:32 ec2 07/02 14:15 Order name: Labs collected and sent; Complete Time: 14:33 ec2 07/02 14:15 Order name: O2 Per Protocol; Complete Time: 14:16 ec2 07/02 14:15 Order name: O2 Sat Monitoring; Complete Time: 14:16 ec2 07/02 15:26 Order name: Misc. Order: repeat ekg/trop at 1630; Complete Time: 16:23 ec2 Administered Medications: No medications were administered Disposition Summary: 07/02/24 17:27 Discharge Ordered Notes: You should follow up with your software development manager Location: Home ec2 Condition: Stable ec2 Diagnosis - Encounter for examination of blood pressure ec2 Followup: ec2 - With: Private Physician - When: - Reason: Re-evaluation by your physician Discharge Instructions: - Discharge Summary Sheet ec2 Forms: - Medication Reconciliation Form ec2 - Antibiotic Education ec2 - Prescription Opioid Use ec2 - Patient Portal Instructions ec2 - Leadership Thank You Letter ec2 Signatures: Dispatcher [employer] Gely Molina RN RN aa5 Dillan Estrella MD MD ec2 Corrections: (The following items were deleted from the chart) 14:24 14:11 PMHx: heart attack. (leg); aa5 aa5 16:03 15:49 Chest Single View+RAD.RAD.BRZ ordered. EDWY EDMS 16:08 15:49 CBC+H.LAB.BRZ ordered. EDMS EDMS
--- NOTE | 2024-07-02 17:28 | ER ---
Nurse's Notes [facility] Name: Benjamin Jackson Age: 73 yrs Sex: Male : 1950 Arrival Date: 07/02/2024 Time: 13:59 Bed 15 Private MD: Diagnosis: Encounter for examination of blood pressure Presentation: 07/02 14:11 Chief complaint: Patient states: "I've been checking my blood pressure and it keeps aa5 getting low and my heart rate keeps getting higher". Pt denies any symptoms, reports lowest BP reading at home 80/59 and HR up to 119. Reports had heart stents placed on Wednesday. 14:11 Coronavirus screen: At this time, the client does not indicate any symptoms associated aa5 with coronavirus-19. Ebola Screen: Patient denies travel to an Ebola-affected area in the 21 days before illness onset. Initial Sepsis Screen: Does the patient meet any 2 criteria? No. Patient's initial sepsis screen is negative. Does the patient have a suspected source of infection? No. Patient's initial sepsis screen is negative. Risk Assessment: Do you want to hurt yourself or someone else? Patient reports no desire to harm self or others. Onset of symptoms was July 01, 2024. 14:11 Acuity: SANJIV 3 aa5 14:11 Method Of Arrival: Ambulatory aa5 Historical: - Allergies: 14:11 Iodine; aa5 - PMHx: 14:11 Hernia; Hypertensive disorder; Kidney stones; Myocardial infarction; aa5 - PSHx: 14:11 leg; aa5 - Immunization history:: Adult Immunizations unknown. - Infectious Disease History:: Denies. - Social history:: Smoking status: Patient reports the use of cigarette tobacco products. Screenin:45 [facility] ED Fall Risk Assessment (Adult) History of falling in the last 3 months, kc6 including since admission No falls in past 3 months (0 pts) Confusion or Disorientation No (0 pts) Intoxicated or Sedated No (0 pts) Impaired Gait No (0 pts) Mobility Assist Device Used No (0 pt) Altered Elimination No (0 pt) Score/Fall Risk Level 0 - 2 = Low Risk. Abuse screen: Denies threats or abuse. Denies injuries from another. Nutritional screening: No deficits noted. Tuberculosis screening: No symptoms or risk factors identified. Assessment: 14:46 General: Appears in no apparent distress. comfortable, well groomed, well developed, kc6 Behavior is calm, cooperative, appropriate for age. Pain: Denies pain. Neuro: Level of Consciousness is awake, alert, obeys commands, Oriented to person, place, time, situation, Appropriate for age. Cardiovascular: Reports palpitations, Denies chest pain, shortness of breath, Heart tones S1 S2 present Capillary refill < 3 seconds. Respiratory: Airway is patent Trachea midline Respiratory effort is even, unlabored, Respiratory pattern is regular, symmetrical. GI: No signs and/or symptoms were reported involving the gastrointestinal system. : No signs and/or symptoms were reported regarding the genitourinary system. EENT: No signs and/or symptoms were reported regarding the EENT system. Derm: No signs and/or symptoms reported regarding the dermatologic system. Skin is intact, is healthy with good turgor, Skin is pink, warm \\T\\ dry. Musculoskeletal: No signs and/or symptoms reported regarding the musculoskeletal system. Circulation, motion, and sensation intact. Capillary refill < 3 seconds, Range of motion: intact in all extremities. 15:29 Reassessment: Patient appears in no apparent distress at this time. No changes from kc6 previously documented assessment. Patient and/or family updated on plan of care and expected duration. Pain level reassessed. Patient is alert, oriented x 3, equal unlabored respirations, skin warm/dry/pink. 16:38 Reassessment: Patient appears in no apparent distress at this time. No changes from kc6 previously documented assessment. Patient and/or family updated on plan of care and expected duration. Pain level reassessed. Patient is alert, oriented x 3, equal unlabored respirations, skin warm/dry/pink. Vital Signs: 14:11 BP 132 / 87; Pulse 88; Resp 18 S; Temp 97.2(TE); Pulse Ox 100% ; Weight 54.43 kg (R); aa5 Height 5 ft. 6 in. (R); 14:20 BP 132 / 87; Pulse 86; Pulse Ox 100% ; ec2 14:47 BP 123 / 73; Pulse 65; Resp 16 S; Pulse Ox 100% on R/A; kc6 15:22 BP 140 / 74; Pulse 68; ec2 15:29 BP 122 / 74; Pulse 65; Resp 16 S; Pulse Ox 99% on R/A; kc6 16:38 BP 128 / 75; Pulse 54; Resp 14 S; Pulse Ox 99% on R/A; Pain 0/10; kc6 17:45 BP 138 / 82; Pulse 55; Resp 16; Temp 98.2(O); Pulse Ox 99% on R/A; Pain 0/10; tl4 14:11 Body Mass Index 19.37 (54.43 kg, 167.64 cm) aa5 16:38 Pain Scale: Adult kc6 17:45 Pain Scale: Adult tl4 ED Course: 14:07 Patient arrived in ED. ec2 14:11 Dillan Estrella MD is Attending Physician. ec2 14:11 Arm band placed on. aa5 14:13 Lea Desouza RN is Primary Nurse. kc6 14:26 Triage completed. aa5 14:45 Patient has correct armband on for positive identification. Placed in gown. Bed in low kc6 position. Call light in reach. Side rails up X 1. Adult w/ patient. quality assurance monitor on. Pulse ox on. NIBP on. Pillow given. 14:48 Inserted saline lock: 20 gauge in left antecubital area, using aseptic technique. oh1 Inserted saline lock: 20 gauge in left antecubital area, using aseptic technique. 14:49 Initial lab(s) drawn, by me, sent to lab. oh1 14:49 EKG done, by scheme technician. reviewed by Dillan Estrella MD. oh1 14:52 Chest Single View In Process Unspecified. EDMS 15:23 Notified ED physician of a critical lab result(s). troponin 322.2. kc6 16:49 Report given to Raymundo Santoyo RN. kc6 17:45 No provider procedures requiring assistance completed. IV discontinued, intact, tl4 bleeding controlled, No redness/swelling at site. Pressure dressing applied. Administered Medications: No medications were administered Medication: 17:45 VIS not applicable for this client. tl4 Outcome: 17:27 Discharge ordered by . ec2 17:45 Discharged to home via wheelchair, with family, tl4 17:45 Condition: stable 17:45 Discharge instructions given to patient, Instructed on discharge instructions, follow up and referral plans. Demonstrated understanding of instructions, follow-up care, 18:01 Patient left the ED. tl4 Signatures: Dispatcher [employer] Gely Molina RN RN aa5 Lea Desouza RN RN kc6 Dillan Estrella MD MD ec2 Raymundo Santoyo RN RN tl4 Mica Mullen oh1 Corrections: (The following items were deleted from the chart) 14:24 14:11 PMHx: heart attack. (leg); aa5 aa5
[2024-07-02 22:20] VITALS: O2SAT 99
[2024-07-02 22:23] VITALS: BP 138/82; TEMP 98.2
--- NOTE | 2024-07-03 16:58 | EKG ---
Test Date: 2024-07-02 Test Time: 16:18:56 Pharmacy Messenger: GERRY MEASUREMENT RESULTS: Intervals: Rate: 56 UT: 150 QRSD: 88 QT: 398 QTc: 384 [place]: P: 89 UT: 150 QRS: 97 T: 76 INTERPRETIVE STATEMENTS: Sinus bradycardia with occasional premature ventricular complexes Rightward axis Pulmonary disease pattern Abnormal ECG Compared to ECG 07/02/2024 14:33:30 Sinus rhythm no longer present Atrial premature complex(es) no longer present Electronically Signed On 07-03-24 16:56:55 CDT by Tor Vigil
--- NOTE | 2024-07-03 16:58 | EKG ---
Test Date: 2024-07-02 Test Time: 14:33:30 Pulp Press Tender: CONNIE MEASUREMENT RESULTS: Intervals: Rate: 79 AL: 142 QRSD: 84 QT: 362 QTc: 415 [place]: P: 91 AL: 142 QRS: 101 T: 78 INTERPRETIVE STATEMENTS: Suspect arm lead reversal, interpretation assumes no reversal Sinus rhythm with occasional premature ventricular complexes and premature atrial complexes Rightward axis Pulmonary disease pattern Abnormal ECG Compared to ECG 06/11/2024 01:32:51 Atrial premature complex(es) now present Ventricular premature complex(es) now present Right-axis deviation now present Sinus bradycardia no longer present ST (T wave) deviation no longer present Electronically Signed On 07-03-24 16:57:01 CDT by Tor Vigil
== END 2024-07-02 18:01 | disposition home or self-care (01) ==
LOC: ER 13:59
DX: I10 Essential (primary) hypertension (principal)
CPT/HCPCS: 36415; 71045; 80048; 84484; 85025; 93005; 99284

== ENCOUNTER 2024-12-19 14:17 | Inpatient (IN) | payer OTHER ==
--- OUTSIDE RECORDS SUMMARY | 2024-12-19 14:20 | XMS REPORT | Continuity of Care Document ---
Author Name Unknown Address [address] [place] [address] [facility] thconnect Address [address] [place] [address] Care Team Providers Care Graphics Edit Technician Name Role Phone Nathaly Zaragoza Attending Clinician Nathaly Nuñez Admitting Clinician Ovidio lowery Payers Payer Name Policy Type Policy Number Effective Date Expirati on Date Source Allergies, Adverse Reactions, Alerts Allergy Name Allergy Type Status Severity Reaction(s) Onset Date Inactive Date Treating Clinician Comments Source iodine DA Active U HIVES 06-22 00:00: 00 [facility] Procedures Procedure Date / Time Performed Performing Clinicia n Source [id number] 2024-06-27 00:00:00 [facility] [id number] 2024-06-27 00:00:00 [facility] [id number] 2024-06-27 00:00:00 [facility] [id number] 2024-06-27 00:00:00 [facility] [id number] 2024-06-27 00:00:00 [facility] [id number] 2024-06-26 00:00:00 [facility] [id number] 2024-06-26 00:00:00 [facility] [id number] [id number] [id number] [facility]24-[facility] [id number] 2024-06-26 00:00:00 [facility] Encounters Start Date/Time End Date/Time Encounter Type Admission Type Attending Clinicians Care Facility Care Department Encounter ID Source 2024-06-22 20:13:00 2024-06-28 12:42:00 Inpatient EM Nathaly Zaragoza [facility] MEDI.01 [id number] [facility] Results Test Description Test Time Test Comments Results Result Co mments Source CBC W/AUTO [id number] 05:43:00* Test Item Value Reference Range Interpretation [...] c ode = MDIFF) NO COAGULATION TIME [id number] 14:40:00* Test Item Value Reference Range Interpretation Comme nts COAGULATION TIME ACTIVATED (test code = ACT) 241 SECONDS Performed by certified tetryl screen operator at [facility] COAGULATION TIME [id number] 10:30:00* Test Item Value Reference Range Interpretation Comme nts COAGULATION TIME ACTIVATED (test code = ACT) 233 SECONDS Performed by certified tetryl screen operator at [facility] COAGULATION TIME [id number] 09:56:00* Test Item Value Reference Range Interpretation Comme nts COAGULATION TIME ACTIVATED (test code = ACT) 282 SECONDS Performed by certified tetryl screen operator at [facility] COAGULATION TIME [id number] 09:46:00* Test Item Value Reference Range Interpretation Comme nts COAGULATION TIME ACTIVATED (test code = ACT) 186 SECONDS Performed by certified tetryl screen operator at [facility] BASIC METABOLIC [id number] 05:02:00* Test Item Value Reference Range Interpretation [...] To be done morning of Heart CathPROTHROMBIN [id number] 04:53:00* Test Item Value Reference Range Interpretation [...] Infarction (to prevent recurrent infarct). CBC W/AUTO [id number] 04:48:00* Test Item Value Reference Range Interpretation [...] be done morning of Heart CathBASIC METABOLIC [id number] 03:46:00* Test Item Value Reference Range Interpretation [...] COMMENTS: To be done morning of Heart [id number] 03:46:00* Test Item Value Reference Range Interpretation Comme nts MAGNESIUM (test code = MAG) 1.94 mg/dL 1.6-2.6 N COMMENTS: To be done morning of Heart CathCBC W/AUTO [id number] 03:24:00* Test Item Value Reference Range Interpretation [...] be done morning of Heart CathBASIC METABOLIC [id number] 04:32:00* Test Item Value Reference Range Interpretation [...] code = CA) 9.3 mg/dL 8.0-10.5 N [id number] 04:32:00* Test Item Value Reference Range Interpretation Comme nts MAGNESIUM (test code = MAG) 2.05 mg/dL 1.6-2.6 N CBC W/AUTO [id number] 04:13:00* Test Item Value Reference Range Interpretation [...] = NRBC#) 0.00 x10 3/uL 0.0-0.1 N [id number] 08:46:00* Test Item Value Reference Range Interpretation Comme nts PREALBUMIN (test code = PREALB) 19.7 mg/dL 16.0-40.0 N [id number] 05:18:00* Test Item Value Reference Range Interpretation Comme nts HGBA1C% (test code = HGBA1C%) 5.5 %A1C 4.8-6.0 N COMPREHENSIVE METABOLIC [id number] 05:08:00* Test Item Value Reference Range Interpretation [...] = LDL) 145.0 mg/dL 0-100 H <100 [id number] 0-129 NEAR OPTIMAL/ABOVE [id number] HIGH>AL=577 VERY HIGH*Guidelines provided by the National Cholesterol EducationProgram Adult Treatment Panel III PROTHROMBIN [id number] 04:37:00* Test Item Value Reference Range Interpretation [...] Infarction (to prevent recurrent infarct). THROMBOPLASTIN TIME [id number] 04:37:00* Test Item Value Reference Range Interpretation Comme nts THROMBOPLASTIN TIME PARTIAL (test code = PTT) 31.5 Seconds 25.0-39.5 N Therapeutic Rang e: 50.4 - 88.3 Seconds Effective 03/14/2019 CBC W/AUTO [id number] 04:26:00* Test Item Value Reference Range Interpretation [...] NRBC#) 0.00 x10 3/uL 0.0-0.1 N PLATELET [id number] 21:44:00* Test Item Value Reference Range Interpretation [...] 0-11 H UA RFLX MICR CULT IF [id number] 17:52:00* Test Item Value Reference Range Interpretation [...] Flank Pain Dysuria/FrequencySpecimen Description: CLEAN CATCHTROP-I HIGH [id number] 20:43:00* Test Item Value Reference Range Interpretation [...] the URL. These results were obtained using proVITAL IM TnIHreagent. Results from different methodologies should not becompared to one another as quantitative results and URLs mayvary by method. LIPOPROTEIN [id number] 20:14:00* Test Item Value Reference Range Interpretation Comme nts LIPOPROTEIN LDL (test code = LDL) 139.0 mg/dL 0-100 H <100 [id number] 0-129 NEAR OPTIMAL/ABOVE [id number] HIGH>HU=086 VERY HIGH*Guidelines provided by the National Cholesterol EducationProgram Adult Treatment Panel III
--- NOTE | 2024-12-19 14:46 | RAD REPORT ---
EXAM: Chest Single View HISTORY: COUGH COMPARISON: 07/02/2024 FINDINGS: LUNGS/PLEURA: The lungs are clear. No pleural effusions or pneumothorax. No pulmonary edema. Question emphysema. MEDIASTINUM: The mediastinal silhouette is within normal limits. CARDIAC: The cardiac silhouette is within normal limits. UPPER ABDOMEN: No significant abnormality. BONES: No acute abnormality. LINES/TUBES/OTHER: N/A IMPRESSION: No evidence of acute cardiopulmonary disease.
[2024-12-19 15:46] LABS: PT Prothrombin Time 11.1 SECONDS (9.4-12.5); Protime INR 1.06
[2024-12-19 15:56] LABS: AST/SGOT 20 U/L (15-37); Albumin 3.5 g/dL (3.4-5.0); Alkaline Phosphatase 60 U/L (45-117); Anion Gap 9.5 mEq/L (5.0-15.0); BUN Blood Urea Nitrogen 17 mg/dL (7-18); Bicarbonate 26 mEq/L (21-32); Bilirubin Total 0.4 mg/dL (0.2-1.0); Globulin 3.6 g/dL (2.3-3.5); Glomerular Filtration Rate 66 ml/min (=/>90); Glucose Level 106 mg/dL (74-106); Magnesium 2.2 mg/dL (1.6-2.4); NT PRO-BNP 1035 pg/mL (<450); Potassium 4.5 mEq/L (3.5-5.1); Protein, Total 7.1 g/dL (6.4-8.2); Sodium Level 134 mEq/L (136-145)
[2024-12-19] MEDS ORDERED: lisinopriL 10 MG TAB ONE (16:02)
[2024-12-19 16:04] LABS: ALT/SGPT < 14 U/L (16-61); Bilirubin Direct < 0.2 mg/dL (0-0.2); Bilirubin Indirect, Calculated 0.2 mg/dL (0.2-0.8)
[2024-12-19 16:06] LABS: Troponin High Sensitivity 152.2 pg/mL (<58.9)
--- NOTE | 2024-12-19 16:12 | EDPHYS ---
Physician Documentation [facility] Name: Benjamin Jackson Age: 74 yrs Sex: Male : 1950 Arrival Date: 12/19/2024 Time: 14:17 Bed 20 Private MD: ED Physician Edgar Garcia HPI: 12/19 15:48 This 74 yrs old Male presents to ER via Ambulatory with complaints of High nu Blood Pressure. Historical: - Allergies: 14:56 Iodine; jb4 - PMHx: 14:56 Hypertensive disorder; Kidney stones; Myocardial infarction; Hernia; jb4 - PSHx: 14:56 leg; cardiac stents (leg); jb4 - Immunization history:: Adult Immunizations up to date. - Infectious Disease History:: Denies. - Social history:: Smoking status: Patient reports the use of cigarette tobacco products, smokes a pipe. ROS: 15:52 Constitutional: Negative for fever, chills, and weight loss, Eyes: Negative for injury, nu pain, redness, and discharge, ENT: Negative for injury, pain, and discharge, Neck: Negative for injury, pain, and swelling, Cardiovascular: Negative for chest pain, palpitations, and edema, Respiratory: Negative for shortness of breath, cough, wheezing, and pleuritic chest pain, Abdomen/GI: Negative for abdominal pain, nausea, vomiting, diarrhea, and constipation, Back: Negative for injury and pain, : Negative for injury, bleeding, discharge, and swelling, MS/Extremity: Negative for injury and deformity, Skin: Negative for injury, rash, and discoloration, Neuro: Negative for headache, weakness, numbness, tingling, and seizure, Psych: Negative for depression, anxiety, suicide ideation, homicidal ideation, and hallucinations, Allergy/Immunology: Negative for hives, rash, and allergies, Endocrine: Negative for neck swelling, polydipsia, polyuria, polyphagia, and marked weight changes, Exam: 15:52 Constitutional: This is a well developed, well nourished patient who is awake, alert, nu and in no acute distress. Head/Face: Normocephalic, atraumatic. Eyes: Pupils equal round and reactive to light, extra-ocular motions intact. Lids and lashes normal. Conjunctiva and sclera are non-icteric and not injected. Cornea within normal limits. Periorbital areas with no swelling, redness, or edema. ENT: Nares patent. No nasal discharge, no septal abnormalities noted. Tympanic membranes are normal and external auditory canals are clear. Oropharynx with no redness, swelling, or masses, exudates, or evidence of obstruction, uvula midline. Mucous membranes moist. Neck: Trachea midline, no thyromegaly or masses palpated, and no cervical lymphadenopathy. Supple, full range of motion without nuchal rigidity, or vertebral point tenderness. No Meningismus. Chest/axilla: Normal chest wall appearance and motion. Nontender with no deformity. No lesions are appreciated. Cardiovascular: Regular rate and rhythm with a normal S1 and S2. No gallops, murmurs, or rubs. Normal PMI, no JVD. No pulse deficits. Respiratory: Lungs have equal breath sounds bilaterally, clear to auscultation and percussion. No rales, rhonchi or wheezes noted. No increased work of breathing, no retractions or nasal flaring. Abdomen/GI: Soft, non-tender, with normal bowel sounds. No distension or tympany. No guarding or rebound. No evidence of tenderness throughout. Back: No spinal tenderness. No costovertebral tenderness. Full range of motion. Male : Normal genitalia with no discharge or lesions. Skin: Warm, dry with normal turgor. Normal color with no rashes, no lesions, and no evidence of cellulitis. MS/ Extremity: Pulses equal, no cyanosis. Neurovascular intact. Full, normal range of motion., bilateral aka Neuro: Awake and alert, GCS 15, oriented to person, place, time, and situation. Cranial nerves II-XII grossly intact. Motor strength 5/5 in all extremities. Sensory grossly intact. Cerebellar exam normal. Normal gait. Psych: Awake, alert, with orientation to person, place and time. Behavior, mood, and affect are within normal limits. 15:52 ECG was reviewed by the Attending Physician. Vital Signs: 14:54 BP 164 / 88 LA Sitting (auto/reg); Pulse 57; Resp 16; Temp 97.9(O); Pulse Ox 99% on jb4 R/A; Weight 56.7 kg (R); Height 5 ft. 6 in. (R); Pain 0/10; 14:54 BP 186 / 80 RA Sitting (auto/reg); Pulse 46; jb4 15:32 BP 153 / 81; Pulse 59; Resp 16; Pulse Ox 99% ; jb4 16:00 BP 143 / 77; Pulse 47; Resp 17; Pulse Ox 99% on R/A; jb4 16:26 Weight 58.1 kg (M); jb4 17:00 BP 166 / 84; Pulse 57; Resp 13; Pulse Ox 100% on R/A; jb4 18:00 BP 155 / 82; Pulse 52; Resp 15; Pulse Ox 100% on R/A; jb4 14:54 Body Mass Index 20.18 (58.10 kg, 167.64 cm) 4 14:54 Pain Scale: Adult jb4 MDM: 14:30 Medical Screening Exam initiated [facility] 15:54 Differential diagnosis: hypertensive crisis, Malignant HTN. Data reviewed: vital signs, [facility] nurses notes, lab test result(s), EKG, radiologic studies, plain films. Consideration of Admission/Observation Escalation of care including admission/observation considered. I considered the following discharge prescriptions or medication management in the emergency department Medications were administered in the Emergency Department. See MAR. Independent interpretation of the following test(s) in the Emergency Department EKG: See my EKG interpretation above. Test considered but Not performed:. Historians other than the Patient: Friend: friend well informed. Care significantly affected by the following chronic conditions: Hypertension, kidney stones, hernia, mi. 12/19 14:30 Order name: Basic Metabolic Panel; Complete Time: 16:07 [facility] 12/19 14:30 Order name: CBC with Diff [facility] 12/19 14:30 Order name: LFT's; Complete Time: 16:07 [facility] 12/19 14:30 Order name: Magnesium; Complete Time: 16:07 [facility] 12/19 14:30 Order name: NT PRO-BNP; Complete Time: 16:07 [facility] 12/19 14:30 Order name: PT-INR; Complete Time: 15:52 [facility] 12/19 14:30 Order name: Troponin HS; Complete Time: 16:07 [facility] 12/19 14:30 Order name: Urinalysis w/ reflexes [facility] 12/19 17:40 Order name: T4 Free [facility] 12/19 17:40 Order name: Thyroid Stimulating Hormone [facility] 12/19 17:40 Order name: Urinalysis w/ reflexes [facility] 12/19 17:40 Order name: Basic Metabolic Panel [facility] 12/19 17:40 Order name: Basic Metabolic Panel [facility] 12/19 17:40 Order name: CBC with Automated Diff [facility] 12/19 17:40 Order name: CBC with Automated Diff [facility] 12/19 17:40 Order name: Lipid Profile [facility] 12/19 17:40 Order name: Lipid Profile [facility] 12/19 17:40 Order name: Magnesium EDMS 12/19 17:40 Order name: Magnesium EDMS 12/19 17:40 Order name: Phosphorus EDMS 12/19 17:40 Order name: Phosphorus EDMS 12/19 17:40 Order name: Troponin High Sensitivity [facility] 12/19 17:40 Order name: Troponin High Sensitivity ED[facility] 12/19 17:40 Order name: Troponin High Sensitivity ED[facility] 12/19 14:30 Order name: XRAY Chest (1 view); Complete Time: 15:26 [facility] 12/19 17:40 Order name: Echo with Doppler EDMS 12/19 17:40 Order name: Echo with Doppler [facility] 12/19 14:30 Order name: EKG; Complete Time: 14:31 [facility] 12/19 14:30 Order name: Cardiac monitoring; Complete Time: 15:18 [facility] 12/19 14:30 Order name: EKG - Nurse/Tech; Complete Time: 15:18 [facility] 12/19 14:30 Order name: IV Saline Lock; Complete Time: 15:31 [facility] 12/19 14:30 Order name: Labs collected and sent; Complete Time: 15:31 [facility] 12/19 14:30 Order name: O2 Per Protocol; Complete Time: 15:18 [facility] 12/19 14:30 Order name: O2 Sat Monitoring; Complete Time: 15:18 [facility] EC:52 Rate is 50 beats/min. Rhythm is regular. QRS [place] is Normal. MO interval is normal. QRS nu interval is normal. QT interval is normal. No Q waves. T waves are Normal. No ST changes noted. Clinical impression: Sinus bradycardia. Interpreted by me. Reviewed by me. Administered Medications: 16:14 Drug: Lisinopril PO 10 mg PO once Route: PO; jb4 16:42 Drug: Enoxaparin Sub-Q 1 mg/kg Sub-Q once Route: Sub-Q; Site: right lower abdomen; jb4 16:47 Drug: Aspirin PO Chewable Tablet 162 mg PO once Route: PO; jb4 16:47 Drug: Famotidine IVP 20 mg IVP once; dilute with 10 mL 0.9% NaCl; give over 2 minutes jb4 Route: IVP; Site: right antecubital; Disposition Summary: 12/19/24 16:11 Hospitalization Ordered Notes: Hospitalization Status: Observation nu Provider: Axel Palacio cha Location: Telemetry/MedSurg (observation)(12/19/24 16:11) nu Condition: Fair(12/19/24 16:11) nu Problem: new(12/19/24 16:11) nu Symptoms: have improved(12/19/24 16:11) nu Bed/Room Type: Standard nu Room Assignment: 221(12/19/24 17:46) bd Diagnosis - Essential (primary) hypertension(12/19/24 16:11) nu - Bradycardia, unspecified(12/19/24 16:11) nu - Abnormal levels of other serum enzymes - elevated troponin nu Forms: - Medication Reconciliation Form nu - SBAR form nu - Leadership Thank You Letter nu Signatures: Dispatcher [employer] EDHeaven Valdez Corey, MD MD cha Bryson, James, RN RN jb4 Corrections: (The following items were deleted from the chart) 16:07 16:07 Home nu nu 16:07 16:07 new nu nu 16:07 16:07 have improved nu nu 16:07 16:07 Stable nu nu 16:07 16:07 Essential (primary) hypertension nu nu 16:07 16:07 Bradycardia, unspecified nu nu 17:46 16:11 nu bd
--- NOTE | 2024-12-19 16:12 | ER ---
Nurse's Notes [facility] Name: Benjamin Jackson Age: 74 yrs Sex: Male : 1950 Arrival Date: 12/19/2024 Time: 14:17 Bed 20 Private MD: Diagnosis: Essential (primary) hypertension;Bradycardia, unspecified;Abnormal levels of other serum enzymes-elevated troponin Presentation: 12/19 14:54 Chief complaint: Patient states: I have been continuously having high blood pressure jb4 and occasionally my machine at home says my heart rate is irregular. I tried talking to my Dr. at the [facility] but cannot get in touch with him and was told to come here. Coronavirus screen: At this time, the client does not indicate any symptoms associated with coronavirus-19. Ebola Screen: No symptoms or risks identified at this time. Initial Sepsis Screen: Does the patient meet any 2 criteria? No. Patient's initial sepsis screen is negative. Does the patient have a suspected source of infection? No. Patient's initial sepsis screen is negative. Risk Assessment: Do you want to hurt yourself or someone else? Patient reports no desire to harm self or others. Onset of symptoms was December 15, 2024. Transition of care: patient was not received from another setting of care. 14:54 Method Of Arrival: Ambulatory jb4 14:54 Acuity: SANJIV 2 jb4 Triage Assessment: 14:56 General: Appears in no apparent distress. comfortable, Behavior is calm, cooperative, jb4 appropriate for age. Pain: Denies pain. Neuro: Level of Consciousness is awake, alert, obeys commands, Oriented to person, place, time, situation. Cardiovascular: Patient's skin is warm and dry. Respiratory: Airway is patent Respiratory effort is even, unlabored, Respiratory pattern is regular, symmetrical. Derm: Skin is intact, Skin is pink, warm \T\ dry. Musculoskeletal: Circulation, motion, and sensation intact. Range of motion: intact in all extremities. Historical: - Allergies: 14:56 Iodine; jb4 - PMHx: 14:56 Hypertensive disorder; Kidney stones; Myocardial infarction; Hernia; jb4 - PSHx: 14:56 leg; cardiac stents (leg); jb4 - Immunization history:: Adult Immunizations up to date. - Infectious Disease History:: Denies. - Social history:: Smoking status: Patient reports the use of cigarette tobacco products, smokes a pipe. Screenin:32 [facility] ED Fall Risk Assessment (Adult) History of falling in the last 3 months, jb4 including since admission No falls in past 3 months (0 pts) Confusion or Disorientation No (0 pts) Intoxicated or Sedated No (0 pts) Impaired Gait No (0 pts) Mobility Assist Device Used No (0 pt) Altered Elimination Yes (1 pt) Score/Fall Risk Level 0 - 2 = Low Risk Oriented to surroundings, Maintained a safe environment. Abuse screen: Denies threats or abuse. Nutritional screening: No deficits noted. Tuberculosis screening: No symptoms or risk factors identified. Assessment: 15:32 Reassessment: Patient appears in no apparent distress at this time. Patient and/or jb4 family updated on plan of care and expected duration. Pain level reassessed. Patient is alert, oriented x 3, equal unlabored respirations, skin warm/dry/pink. 16:30 Reassessment: Patient appears in no apparent distress at this time. Patient and/or jb4 family updated on plan of care and expected duration. Pain level reassessed. Patient is alert, oriented x 3, equal unlabored respirations, skin warm/dry/pink. 17:30 Reassessment: Patient appears in no apparent distress at this time. Patient and/or jb4 family updated on plan of care and expected duration. Pain level reassessed. Patient is alert, oriented x 3, equal unlabored respirations, skin warm/dry/pink. Vital Signs: 14:54 BP 164 / 88 LA Sitting (auto/reg); Pulse 57; Resp 16; Temp 97.9(O); Pulse Ox 99% on jb4 R/A; Weight 56.7 kg (R); Height 5 ft. 6 in. (R); Pain 0/10; 14:54 BP 186 / 80 RA Sitting (auto/reg); Pulse 46; jb4 15:32 BP 153 / 81; Pulse 59; Resp 16; Pulse Ox 99% ; jb4 16:00 BP 143 / 77; Pulse 47; Resp 17; Pulse Ox 99% on R/A; jb4 16:26 Weight 58.1 kg (M); jb4 17:00 BP 166 / 84; Pulse 57; Resp 13; Pulse Ox 100% on R/A; jb4 18:00 BP 155 / 82; Pulse 52; Resp 15; Pulse Ox 100% on R/A; jb4 14:54 Body Mass Index 20.18 (58.10 kg, 167.64 cm) jb4 14:54 Pain Scale: Adult jb4 ED Course: 14:28 Patient arrived in ED. ra3 14:29 Edgar Garcia MD is Attending Physician. nu 14:42 XRAY Chest (1 view) In Process Unspecified. EDMS 14:54 Solis Umanzor, RN is Primary Nurse. jb4 14:56 Triage completed. jb4 14:56 Arm band placed on right wrist. jb4 15:23 No provider procedures requiring assistance completed. Inserted saline lock: 18 gauge jb4 in right antecubital area, using aseptic technique. Blood collected. 15:31 Basic Metabolic Panel Sent. jb4 15:31 CBC with Diff Sent. jb4 15:31 LFT's Sent. jb4 15:31 Magnesium Sent. jb4 15:31 NT PRO-BNP Sent. jb4 15:31 PT-INR Sent. jb4 15:31 Troponin HS Sent. jb4 15:32 Patient has correct armband on for positive identification. Bed in low position. Call jb4 light in reach. Side rails up X 1. Provided Education on: plan of care. 16:07 Tor Vigil MD is Referral Physician. nu 16:10 Axel Palacio is Hospitalizing Provider. nu 17:47 Graduate Teaching Associate paged at 17:25. bd Administered Medications: 16:14 Drug: Lisinopril PO 10 mg PO once Route: PO; jb4 16:42 Drug: Enoxaparin Sub-Q 1 mg/kg Sub-Q once Route: Sub-Q; Site: right lower abdomen; jb4 16:47 Drug: Aspirin PO Chewable Tablet 162 mg PO once Route: PO; jb4 16:47 Drug: Famotidine IVP 20 mg IVP once; dilute with 10 mL 0.9% NaCl; give over 2 minutes jb4 Route: IVP; Site: right antecubital; Medication: 15:32 VIS not applicable for this client. jb4 Outcome: 16:07 Discharge ordered by . nu 16:11 Decision to Hospitalize by Provider. nu 19:14 Patient left the ED. jb4 Signatures: Dispatcher [employer] EDMS Heaven Orellana Corey, MD MD cha Bryson, James, RN RN jb4 Linda Davalos 3
[2024-12-19] MEDS ORDERED: ASPIRIN 81 MG CHEWABLE TABLET ONE (16:39)
[2024-12-19] MEDS ORDERED: FAMOTIDINE 20 MG/2 ML VIAL IV ONE (16:40)
[2024-12-19] MEDS ORDERED: ENOXAPARIN 60 MG/0.6 ML SQ ONE (16:40)
[2024-12-19] MEDS ORDERED: ACETAMINOPHEN 325 MG TABLET PO PRN (17:28)
[2024-12-19] MEDS ORDERED: HYDRALAZINE HCL 20 MG/ML VIAL IV PRN (17:28)
--- NOTE | 2024-12-19 17:47 | P.HP ---
Certification for Inpatient Patient admitted to: Observation Patient will require the following post-hospital care: None Practitioner: I am a practitioner with admitting privileges, knowledge of patient current condition, hospital course, and medical plan of care. Services: Services provided to patient in accordance with Admission requirements found in Title 42 Section 412.3 of the Code of Federal Regulations Patient History Date of Service: 12/19/24 Reason for admission: NSTEMI, hypertension History of Present Illness: Benjamin Jackson is a 74-year-old male with past medical history of hypertension, CAD/MO with 2 stents, and kidney stones who presented to the ED concerned about irregular heart beat seen on his blood pressure machine. He has a history of CAD and received 2 stents from [facility] in July 2024. He is unable to take metoprolol twice a day due to his bradycardia allowing his blood pressure to be elevated. He has extensive record of blood pressure readings and is compliant with medication instructions given by cardiology at [facility]. While in the ED, Laboratory evaluation significant for troponin 157, BNP 1035. Chest x-ray reports 'no acute finding". He reports smoking cigarettes and a pipe, and complaining of a productive cough. Benjamin will be admitted to hospitalist service for further evaluation of elevated troponin and hypertension, Dr. Vigil consulted. Allergies Iodine-Iodine Containing Allergy (Uncoded 08/18/15 00:49) Unknown Home Medications: Aspirin [Aspirin EC 81 MG] 81 mg PO DAILY #360 tab 06/13/24 Atorvastatin Calcium [Lipitor] 40 mg PO BEDTIME #90 tab 06/13/24 Clopidogrel Bisulfate [Plavix] 75 mg PO DAILY #90 tab 06/13/24 Metoprolol Tartrate [Lopressor*] 25 mg PO BID 6AM 6PM 30 Days #60 tab 06/13/24 - Past Medical/Surgical History Diabetic: No -: Hypertension on lisinopril -: kidney stones -: hernia -: PCI x2 with 2 stents - Social History Smoking Status: Current every day smoker Alcohol use: No CD- Drugs: No Review of Systems Cardiovascular: Other (Irregular heart beat) Physical Examination - Physical Exam General: Alert, In no apparent distress, Oriented x3 HEENT: Atraumatic, Normocephalic, PERRLA Neck: Supple, 2+ carotid pulse no bruit, JVD not distended Respiratory: Clear to auscultation bilaterally, Normal air movement Cardiovascular: Normal pulses, Irregular heart rate/rhythm (bradycardic) Capillary refill: <2 Seconds Gastrointestinal: Normal bowel sounds, Soft and benign Musculoskeletal: No clubbing Integumentary: No rashes Neurological: Normal speech, Normal tone - Studies Laboratory Data (last 24 hrs) 12/19/24 12/19/24 15:23 15:23 PT 11.1 INR 1.06 Sodium 134 L Potassium 4.5 BUN 17 Creatinine 1.15 Glucose 106 Magnesium 2.2 Total Bilirubin 0.4 AST 20 ALT < 14 L Alkaline Phosphatase 60 Assessment and Plan - Plan Assessment and plan Elevated troponin History of CAD with 2 stents - EKG: No obvious ST segment changes, bradycardic - troponin 152.2, Serial pending - Ordered transthoracic echocardiogram - chest x-ray reports no acute findings - Consult Cardiology - recommendations appreciated - S/P aspirin 162 mg PO x 1 and weight based lovenox in ED - Start daily baby aspirin and statin - Symptom control with PRN acetaminophen, nitroglycerin, morphine - continuous telemetry - TSH/FreeT4, A1C, lipid panel pending Hypertension -Hydralazine as needed -Continue home medication when appropriate Substance abuse Productive cough -Cigarette and pipe smoking -Cessation education provided DVT PPx Lovenox Full code LOS 24-hour OBS Discharge Plan: Home Plan to discharge in: 24 Hours - Advance Directives Does patient have a Living Will: No Does patient have a Durable POA for Healthcare: No
[2024-12-19 19:38] VITALS: BMI 20.5
[2024-12-19] MEDS: ATORVASTATIN 40 MG TAB PO SCH (20:45)
[2024-12-19] MEDS: AMLODIPINE 5 MG TAB PO SCH (20:45)
[2024-12-19 23:12] LABS: Absolute Basophils 0.1 K/uL (0-0.5); Absolute Eosinophils 0.2 K/uL (0-0.5); Absolute Lymphocytes (CBC) 1.7 K/uL (0.7-4.9); Absolute Monocytes 0.5 K/uL (0.1-1.3); Absolute Neutrophil 3.9 K/uL (1.8-8.0); Basophils % 1.3 % (0-1.3); Eosinophils % 3.8 % (0-4.4); Hematocrit 34.8 % (39.6-49.0); Hemoglobin 12.1 g/dL (13.6-17.9); Lymphocytes % 26.6 % (15.3-44.8); MCH 32.4 pg (27.0-35.0); MCHC 34.9 g/dL (32.0-36.0); MCV 92.9 fL (80-100); MPV 6.8 fL (7.6-11.3); Monocytes % 7.9 % (3.3-12.3); Neutrophils % 60.4 % (41.7-73.7); Platelets 206 thou/uL (152-406); RBC Red Blood Cell Count 3.75 M/uL (4.33-5.43); Red Cell Distribution Width 14.4 % (12.1-15.2)
[2024-12-20 00:37] LABS: Specific Gravity 1.016 (1.005-1.030); Urine Bilirubin NEGATIVE (Negative); Urine Blood Negative (Negative); Urine Clarity Clear (Clear); Urine Color Light-Yellow (Yellow); Urine Glucose NEGATIVE (Negative); Urine Ketones NEGATIVE (Negative); Urine Microscopic Reflex YN NO UMIC; Urine Nitrite NEGATIVE (Negative); Urine Protein NEGATIVE (Negative); Urine Urobilinogen Normal (Normal)
[2024-12-20] MEDS: SIMETHICONE 80 MG CHEWABLE TAB PO PRN (02:55)
[2024-12-20] MEDS ORDERED: SIMETHICONE 80 MG CHEWABLE TAB PO PRN (03:04)
[2024-12-20 05:54] LABS: Absolute Basophils 0.1 K/uL (0-0.5); Absolute Eosinophils 0.3 K/uL (0-0.5); Absolute Lymphocytes (CBC) 1.6 K/uL (0.7-4.9); Absolute Monocytes 0.5 K/uL (0.1-1.3); Absolute Neutrophil 4.5 K/uL (1.8-8.0); Basophils % 0.7 % (0-1.3); Eosinophils % 4.5 % (0-4.4); Hematocrit 36.5 % (39.6-49.0); Hemoglobin 12.6 g/dL (13.6-17.9); Lymphocytes % 22.2 % (15.3-44.8); MCH 31.9 pg (27.0-35.0); MCHC 34.6 g/dL (32.0-36.0); MCV 92.2 fL (80-100); MPV 6.8 fL (7.6-11.3); Monocytes % 7.6 % (3.3-12.3); Platelets 220 thou/uL (152-406); RBC Red Blood Cell Count 3.96 M/uL (4.33-5.43); Red Cell Distribution Width 14.5 % (12.1-15.2)
[2024-12-20 06:09] VITALS: O2SAT 98
[2024-12-20 06:18] LABS: Anion Gap 5.7 mEq/L (5.0-15.0); Magnesium 2.3 mg/dL (1.6-2.4); Phosphorus 3.4 mg/dL (2.5-4.9); Potassium 4.7 mEq/L (3.5-5.1)
[2024-12-20 06:19] LABS: Thyroid Stimulating Hormone 7.32 uIU/mL (0.358-3.740)
[2024-12-20] MEDS: CLOPIDOGREL 75 MG TABLET PO SCH (09:06)
[2024-12-20] MEDS: ASPIRIN EC 81 MG TAB PO SCH (09:06)
[2024-12-20] MEDS: ENOXAPARIN 60 MG/0.6 ML SQ SCH (09:07)
--- NOTE | 2024-12-20 18:38 | P.PN ---
Date of Service: 12/20/24 Subjective awake, no complaints of chest pain HR improved remains on Lovenox BID ROS 10 point ROS as noted above, otherwise negative Physical Exam General: Alert and Oriented x3, NAD HEENT: Atraumatic, Normocephalic, PERRLA Neck: Supple, 2+ carotid pulse no bruit, JVD not distended Respiratory: Clear to auscultation bilaterally, Normal air movement, on RA Cardiovascular: Normal pulses, NSR, S1 S2 present Capillary refill: <2 Seconds Gastrointestinal: Normal bowel sounds, Soft on palpation Musculoskeletal: No clubbing Integumentary: No rashes Neurological: Normal speech, Normal tone Vitals Reviewed Problem list Elevated troponin History of CAD with 2 stents Hypertension Substance abuse Productive cough Assessment and Plan Elevated troponin History of CAD with 2 stents - EKG: No obvious ST segment changes, bradycardic - troponin 152.2/ 188.3/ 207.4 - Ordered transthoracic echocardiogram - chest x-ray reports no acute findings - Consult Cardiology -awaiting cardiology recommendations - S/P aspirin 162 mg PO x 1 and weight based lovenox in ED - Start daily baby aspirin and statin - Symptom control with PRN acetaminophen, nitroglycerin, morphine - continuous telemetry - TSH/FreeT4 7.320/ 1.04, lipid panel Triglycerides 93, Cholesterol 199, LDL 134, HDL 46 Hypertension -Hydralazine as needed -Continue home medication when appropriate Substance abuse Productive cough -Cigarette and pipe smoking -Cessation education provided DVT PPx Lovenox BID Full code LOS 24-hour OBS Discharge Plan: Home Plan to discharge in: 24 Hours
--- NOTE | 2024-12-21 11:35 | P.CNS ---
Date of Consult: 12/21/24 Chief Complaint: NSTEMI, hypertension History of Present Illness: Patient with PMH of CAD, HTN presented with high BP, denies having chest pain, no palpitations, no syncope, no SOB, no MACE. has not be complaint with his medications. Allergies Iodinated Contrast Media Allergy (Verified 12/19/24 19:31) Rash Iodine-Iodine Containing Allergy (Uncoded 12/19/24 19:29) Rash Home medications list reviewed: Yes Home Medications: Aspirin [Aspirin EC 81 MG] 81 mg PO DAILY #360 tab 06/13/24 Metoprolol Tartrate [Lopressor*] 25 mg PO BID 12/19/24 - Past Medical/Surgical History Diabetic: No -: Hypertension on lisinopril -: kidney stones -: hernia -: PCI x2 with 2 stents -: right thigh surg with plate - Social History Smoking Status: Unknown if ever smoked Alcohol use: No CD- Drugs: No Caffeine use: Yes Place of Residence: Home Review of Systems 10-point ROS is otherwise unremarkable Physical Examination Temp Pulse Resp BP Pulse Ox 98.1 F 74 14 104/64 98 12/21/24 08:00 12/21/24 08:00 12/21/24 08:00 12/21/24 08:00 12/21/24 08:00 General: Alert, In no apparent distress HEENT: Atraumatic, PERRLA, Mucous membr. moist/pink, EOMI, Sclerae nonicteric Neck: Supple, 2+ carotid pulse no bruit, No LAD, Without JVD or thyroid abnormality Respiratory: Clear to auscultation bilaterally, Normal air movement Cardiovascular: Regular rate/rhythm, Normal S1 S2 Gastrointestinal: Normal bowel sounds, No tenderness Musculoskeletal: No tenderness Integumentary: No rashes Neurological: Normal gait, Normal speech, Normal tone, Normal affect Lymphatics: No axilla or inguinal lymphadenopathy - Problems (1) HLD (hyperlipidemia) Current Visit: No Status: Acute Plan: continue lipitor 40 mg daily check lipid panel in 3 months (2) HTN (hypertension) Current Visit: No Status: Acute Plan: patient was not complaint with metoprolol due to slow HR BP looks better controlled with Norvasc, continue. (3) NSTEMI (non-ST elevated myocardial infarction) Current Visit: No Status: Acute Plan: most likely type 2 LA from high BP, patient denies having chest pain. patient was not complaint with his Plavix, consulted him about importance of taking his medications. continue ASA 81 mg daily continue Plavix 75 mg daily No further inpatient cardiac work up needed.
[2024-12-21 11:56] VITALS: BP 124/67; TEMP 97.9
--- NOTE | 2024-12-21 13:00 | EKG ---
Test Date: 2024-12-19 Test Time: 15:01:45 [employer] Representative: ODESSA MEASUREMENT RESULTS: Intervals: Rate: 50 ID: [id number] QRSD: 88 QT: 426 QTc: 388 [place]: P: 83 ID: [id number] QRS: 95 T: 73 INTERPRETIVE STATEMENTS: Sinus bradycardia ST abnormality, possible digitalis effect Abnormal ECG Compared to ECG 07/02/2024 16:18:56 ST (T wave) deviation now present Ventricular premature complex(es) no longer present Right-axis deviation no longer present Electronically Signed On 12-21-24 12:58:30 DEVELOPMENTAL MATHEMATICS PROFESSOR by Pramod [place]
--- NOTE | 2024-12-21 13:28 | ECHO ---
HEIGHT: 5 ft 6 in WEIGHT: 127 lb 3.2 oz DATE OF STUDY: 12/20/[address]: Tiffanie Chavez NP 2-DIMENSIONAL: YES M.MODE: YES DOPPLER: YES COLOR FLOW: YES TDS: NO PORTABLE: YES DEFINITY: NO BUBBLE STUDY: NO DIAGNOSIS: NSTEMI CARDIAC HISTORY: CATHERIZATION:YES SURGERY: NO PROSTHETIC VALVE: NO PACEMAKER: NO MEASUREMENTS (cm) DIASTOLIC (NORMALS) SYSTOLIC (NORMALS) IVSd 1.0 (0.6-1.2) LA Diam 2.4 (1.9-4.0) LVEF 50-55% LVIDd 4.1 (3.5-5.7) LVIDs 3.0 (2.0-3.5) %FS 28% LVPWd 1.0 (0.6-1.2) Ao Diam 2.9 (2.0-3.7) 2 DIMENSIONAL ASSESSMENT: RIGHT ATRIUM: NORMAL LEFT ATRIUM: NORMAL RIGHT VENTRICLE: NORMAL LEFT VENTRICLE: NORMAL TRICUSPID VALVE: TRACE TRICUSPID REGURGITATION MITRAL VALVE: NORMAL PULMONIC VALVE: NORMAL AORTIC VALVE: NORMAL PERICARDIAL EFFUSION: NONE AORTIC ROOT: NORMAL LEFT VENTRICULAR WALL MOTION: NORMAL. DOPPLER/COLOR FLOW: GRADE II DIASTOLIC DYSFUNCTION. COMMENTS: 1. NORMAL LEFT VENTRICULAR SYSTOLIC FUNCTION. LEFT VENTRICULAR EJECTION FRACTION 50-55%. NORMAL WALL MOTION. 2. GRADE II DIASTOLIC DYSFUNCTION. 3. NORMAL FILLING PRESSURES. TECHNOLOGIST: BENOIT AQUINO
--- NOTE | 2024-12-21 13:35 | P.DS ---
Admission Date: 12/20/24 Discharge Date: 12/21/24 Disposition: ROUTINE DISCHARGE Discharge Condition: GOOD Reason for Admission: NSTEMI, hypertension Brief History of Present Illness: Diagnosis Type II LA secondary to elevated blood pressure History of CAD with 2 stents Hypertension Substance abuse Productive cough Medication noncompliance HPI 12/19/24 Benjamin Jackson is a 74-year-old male with past medical history of hypertension, CAD/LA with 2 stents, and kidney stones who presented to the ED concerned about irregular heart beat seen on his blood pressure machine. He has a history of CAD and received 2 stents from [facility] in July 2024. He is unable to take metoprolol twice a day due to his bradycardia allowing his blood pressure to be elevated. He has extensive record of blood pressure readings and is compliant with medication instructions given by cardiology at [facility]. While in the ED, Laboratory evaluation significant for troponin 157, BNP 1035. Chest x-ray reports 'no acute finding". He reports smoking cigarettes and a pipe, and complaining of a productive cough. Benjamin will be admitted to hospitalist service for further evaluation of elevated troponin and hypertension, Dr. Vigil consulted. Hospital Course: Benjamin presented to the ED questioning his blood pressure machine saying irregular heart beat. Laboratory evaluation showing troponin and blood pressure elevated. Troponin trended flat and blood pressure was controlled with norvasc. EKG showed bradycardia. He cannot tolerate metoprolol d/t bradycardia, he reports he cannot tolerate norvasc as well, he reports good blood pressure while taking lisinopril. A beta day is the first line medication for heart disease, he will need to follow up with his crown and bridge technician for further recommendations. Dr. Houston consulted and cleared him for discharge. Benjamin reports valid reasoning for his medication noncompliance. Encouraged and educated him to follow-up with his crown and bridge technician and/or [place] doctor for further recommendations that we will better fit his needs. On 12/21/24, Benjamin was seen on morning rounds and deemed medically stable for discharge. Benjamin was discharged with instructions [facility] Benjamin was provided prescriptions for lisinopril. Physical Exam General: AAOx3, NAD HEENT: Atraumatic, Normocephalic, PERRLA Neck: Supple, 2+ carotid pulse no bruit, JVD not distended Respiratory: Clear BBS, Normal air movement, on RA Cardiovascular: Normal pulses, NSR, S1 S2 present Capillary refill: <2 Seconds Gastrointestinal: Normal bowel sounds, Soft on palpation, ND/NT Musculoskeletal: No clubbing Integumentary: No rashes Neurological: Normal speech, Normal tone Vital Signs/Physical Exam: Temp Pulse Resp BP Pulse Ox 97.9 F 58 16 124/67 98 12/21/24 11:54 12/21/24 11:54 12/21/24 11:54 12/21/24 11:54 12/21/24 11:54 Laboratory Data at Discharge: WBC 7.00 thou/uL (4.3-10.9) 12/20/24 05:41 Hgb 12.6 g/dL (13.6-17.9) L 12/20/24 05:41 Hct 36.5 % (39.6-49.0) L 12/20/24 05:41 Plt Count 220 thou/uL (152-406) 12/20/24 05:41 PT 11.1 SECONDS (9.4-12.5) 12/19/24 15:23 INR 1.06 12/19/24 15:23 Sodium 136 mEq/L (136-145) 12/20/24 05:41 Potassium 4.7 mEq/L (3.5-5.1) 12/20/24 05:41 BUN 20 mg/dL (7-18) H 12/20/24 05:41 Creatinine 1.19 mg/dL (0.70-1.30) 12/20/24 05:41 Glucose 98 mg/dL (74-106) 12/20/24 05:41 Phosphorus 3.4 mg/dL (2.5-4.9) 12/20/24 05:41 Magnesium 2.3 mg/dL (1.6-2.4) 12/20/24 05:41 Total Bilirubin 0.4 mg/dL (0.2-1.0) 12/19/24 15:23 AST 20 U/L (15-37) 12/19/24 15:23 ALT < 14 U/L (16-61) L 12/19/24 15:23 Alkaline Phosphatase 60 U/L (45-117) 12/19/24 15:23 Triglycerides 93 mg/dL (<150) 12/20/24 05:41 Cholesterol 199 mg/dL (<200) 12/20/24 05:41 HDL Cholesterol 46 mg/dL (40-60) 12/20/24 05:41 Cholesterol/HDL Ratio 4.33 12/20/24 05:41 Home Medications: Aspirin [Aspirin EC 81 MG] 81 mg PO DAILY #360 tab 06/13/24 Atorvastatin Calcium [Lipitor] 40 mg PO BEDTIME 30 Days #30 tab 12/21/24 Carvedilol [Coreg] 3.125 mg PO BID 30 Days #60 tab 12/21/24 Lisinopril [Zestril] 10 mg PO 10 30 Days #30 tab 12/21/24 New Medications: Carvedilol [Coreg] 3.125 mg PO BID 30 Days #60 tab Atorvastatin Calcium [Lipitor] 40 mg PO BEDTIME 30 Days #30 tab Lisinopril [Zestril] 10 mg PO 10 30 Days #30 tab Physician Discharge Instructions: 1. Please call and schedule a follow-up appointment with your PCP in 3-5 days - Please follow-up with your PCP for medication refills/adjustments 2. Please call and schedule a follow-up appointment with [facility] or Dr. Houston in one week -Change blood pressure medication to Coreg 3.125, continue to check your blood pressure and heart rate prior to taking medication. Heart rate should be 60 or higher. -Changes may need to be [facility] with the [facility]. 3. Continue heart healthy diet 4. No activity restrictions 5. Return to the ED if symptoms worsen New medications Coreg 3.125 mg twice daily Stop medication Metoprolol Continue medications previously prescribed except metoprolol Conversation about plavix, please seek health counselor with the [facility] crown and bridge technician concerning a different option as plavix is causing bleeding/ Followup: Pramod Houston MD [ACTIVE - CAN ADMIT] - 1-2 Weeks [facility] [Primary Care Provider] -
== END 2024-12-21 15:30 | disposition home or self-care (01) | DRG 282 ==
LOC: ER 14:17 → ERHOLD 17:28 → 2ND 18:11 → OBSVTOIN 12-20 12:07
PROVIDERS: ADMIT Internal Medicine; ATTEND Internal Medicine
DX: I10 Essential (primary) hypertension (principal); I21.A1 Myocardial infarction type 2; E78.5 Hyperlipidemia, unspecified; F19.10 Other psychoactive substance abuse, uncomplicated; I25.10 Atherosclerotic heart disease of native coronary artery without angina pectoris; F17.210 Nicotine dependence, cigarettes, uncomplicated; R00.1 Bradycardia, unspecified; I25.2 Old myocardial infarction; Z95.5 Presence of coronary angioplasty implant and graft; Z79.82 Long term (current) use of aspirin; Z79.02 Long term (current) use of antithrombotics/antiplatelets; Z79.899 Other long term (current) drug therapy; Z91.148 Patient's other noncompliance with medication regimen for other reason
CPT/HCPCS: 36415; 71045; 80048; 80061; 80076; 81003; 83735; 83880; 84100; 84439; 84443; 84484; 85025; 85610; 93005; 93306; 96372; 96374; 99284; G0378; J1650

== ENCOUNTER 2025-09-24 00:30 | Observation (INO) | payer OTHER ==
[2025-09-24 01:11] LABS: Hematocrit 36.1 % (39.6-49.0); Hemoglobin 12.3 g/dL (13.6-17.9); RBC Red Blood Cell Count 3.78 M/uL (4.33-5.43); White Blood Count 6.20 thou/uL (4.3-10.9)
[2025-09-24 01:12] LABS: Absolute Lymphocytes (CBC) 1.8 K/uL (0.7-4.9); MCH 32.5 pg (27.0-35.0); MCHC 33.9 g/dL (32.0-36.0); MCV 95.6 fL (80-100); MPV 6.7 fL (7.6-11.3); Nucleated RBC Absolute Count 0.0 (0-0); Nucleated Red Blood Cells % 0.1 % (0-0)
[2025-09-24 01:34] LABS: Anion Gap 7.1 mEq/L (5.0-15.0); BUN Blood Urea Nitrogen 13.0 mg/dL (7-18); Glucose Level 92.0 mg/dL (74-106); Magnesium 1.9 mg/dL (1.6-2.4); NT PRO-BNP 769.0 pg/mL (<450); Potassium 4.1 mEq/L (3.5-5.1)
[2025-09-24 01:51] LABS: Troponin High Sensitivity 280.6 pg/mL (<58.9)
--- NOTE | 2025-09-24 01:57 | EDPHYS ---
Physician Documentation [facility] Name: Benjamin Jackson Age: 74 yrs Sex: Male : 1950 Arrival Date: 09/24/2025 Time: 00:30 Bed 5 Private MD: ED Physician Angela Lynne HPI: 09/24 00:51 This 74 yrs old Male presents to ER via Unassigned with complaints of High Blood sp3 Pressure. 00:51 74-year-old male with history of hypertension, prior NSTEMI, hypothyroidism, CAD now sp3 presents to the ED with elevated blood pressure without symptoms. Patient is being managed at the [facility]. He takes both lisinopril and Carvediol with instructions to stop the Carvediol if pulses are below 60. Patient blood pressure at home was 200 systolic with pulse at 60 so he comes here for further guidance. He denies any headache, neck pain, chest pain, shortness of breath, abdominal pain, back pain, syncope, near syncope, or any other signs or symptoms on ROS at this time.. Historical: - Allergies: 00:53 Iodine; br2 - PMHx: 00:53 constipation (leg); Hernia; Hypertensive disorder; Kidney stones; Myocardial infarction;br2 - PSHx: 00:53 cardiac stents; leg; br2 - Immunization history:: Adult Immunizations not up to date. - Infectious Disease History:: Denies. - Social history:: Smoking status: Patient reports the use of cigarette tobacco products, smokes one pack cigarettes per day. Patient/guardian denies using alcohol, street drugs. ROS: 00:52 Constitutional: Negative for fever, chills, and weight loss, Eyes: Negative for injury, sp3 pain, redness, and discharge, ENT: Negative for injury, pain, and discharge, Neck: Negative for injury, pain, and swelling, Respiratory: Negative for shortness of breath, cough, wheezing, and pleuritic chest pain, Abdomen/GI: Negative for abdominal pain, nausea, vomiting, diarrhea, and constipation, Back: Negative for injury and pain, MS/Extremity: Negative for injury and deformity, Skin: Negative for injury, rash, and discoloration, Neuro: Negative for headache, weakness, numbness, tingling, and seizure, Psych: Negative for depression, anxiety, suicide ideation, homicidal ideation, and hallucinations, Allergy/Immunology: Negative for hives, rash, and allergies, Endocrine: Negative for neck swelling, polydipsia, polyuria, polyphagia, and marked weight changes, Hematologic/Lymphatic: Negative for swollen nodes, abnormal bleeding, and unusual bruising, 00:52 All other systems are negative, Exam: 00:52 Constitutional: This is a well developed, well nourished patient who is awake, alert, sp3 and in no acute distress. Head/Face: Normocephalic, atraumatic. Eyes: Pupils equal round and reactive to light, extra-ocular motions intact. Lids and lashes normal. Conjunctiva and sclera are non-icteric and not injected. Cornea within normal limits. Periorbital areas with no swelling, redness, or edema. ENT: Nares patent. No nasal discharge, no septal abnormalities noted. External auditory canals are clear. Oropharynx with no redness, swelling, or masses, exudates, or evidence of obstruction, uvula midline. Mucous membranes moist. Neck: Trachea midline, no thyromegaly or masses palpated, and no cervical lymphadenopathy. Supple, full range of motion without nuchal rigidity, or vertebral point tenderness. No Meningismus. Chest/axilla: Normal chest wall appearance and motion. Nontender with no deformity. No lesions are appreciated. Cardiovascular: Regular rate and rhythm with a normal S1 and S2. No gallops, murmurs, or rubs. Normal PMI, no JVD. No pulse deficits. Respiratory: Lungs have equal breath sounds bilaterally, clear to auscultation and percussion. No rales, rhonchi or wheezes noted. No increased work of breathing, no retractions or nasal flaring. Abdomen/GI: Soft, non-tender, with normal bowel sounds. No distension or tympany. No guarding or rebound. No evidence of tenderness throughout. Back: No spinal tenderness. No costovertebral tenderness. Full range of motion. Skin: Warm, dry with normal turgor. Normal color with no rashes, no lesions, and no evidence of cellulitis. MS/ Extremity: Pulses equal, no cyanosis. Neurovascular intact. Full, normal range of motion. Neuro: Awake and alert, GCS 15, oriented to person, place, time, and situation. Cranial nerves II-XII grossly intact. Motor strength 5/5 in all extremities. Sensory grossly intact. Cerebellar exam normal. Normal gait. Psych: Awake, alert, with orientation to person, place and time. Behavior, mood, and affect are within normal limits. 01:56 ECG was reviewed by the Attending Physician. EKG demonstrates sinus bradycardia at 53 sp3 bpm with normal intervals, normal QRS, normal axis occasional PAC and nonspecific diffuse ST/T changes without evidence of acute ischemia. Vital Signs: 00:51 BP 207 / 98; Pulse 56; Resp 18; Temp 97.1; Pulse Ox 100% ; Weight 54.57 kg; Height 5 br2 ft. 6 in. ; Pain 0/10; 01:18 BP 169 / 82; Pulse 54; Resp 15; Temp 97.1; Pulse Ox 100% ; Pain 0/10; bm8 01:46 BP 124 / 77; Pulse 54; Resp 16; Pulse Ox 97% ; cp4 03:21 BP 131 / 77; Pulse 56; Resp 17; Temp 97.1; Pulse Ox 98% on R/A; Pain 0/10; bm8 00:51 Body Mass Index 19.42 (54.57 kg, 167.64 cm) br2 00:51 Pain Scale: Adult br2 01:18 Pain Scale: Adult bm8 03:21 Pain Scale: Adult bm8 [place] Coma Score: 01:18 Eye Response: spontaneous(4). Motor Response: obeys commands(6). Verbal Response: bm8 oriented(5). Total: 15. 03:21 Eye Response: spontaneous(4). Motor Response: obeys commands(6). Verbal Response: bm8 oriented(5). Total: 15. MDM: 00:40 Medical Screening Exam initiated sp3 00:53 Data reviewed: vital signs, nurses notes, old medical records, lab test result(s), EKG. sp3 ED course: 74-year-old male with hypertensive urgency versus ACS versus electrolyte abnormality versus other inducing event. Workup will include EKG, general labs including troponin and creatinine to assess for endorgan damage. Clinically I am not highly suspicious of intracranial pathology and patient has no headache whatsoever. Will administer patient's own lisinopril and clonidine 0.2 mg p.o. while we await workup. IV medications if indicated if p.o. medications are not sufficient. Disposition probable discharge unless admission indication discovered.. 01:53 ED course: Blood pressure 124/77. We will add aspirin and place patient inpatient with sp3 cardiology consultation for elevated troponin of 280 in the setting of normal creatinine.. 09/24 00:50 Order name: Basic Metabolic Panel; Complete Time: 01:52 sp3 09/24 00:50 Order name: CBC with Diff; Complete Time: 01:46 sp3 09/24 00:50 Order name: Magnesium; Complete Time: 01:52 sp3 09/24 00:50 Order name: NT PRO-BNP; Complete Time: 01:52 sp3 09/24 00:50 Order name: Troponin HS; Complete Time: 01:52 sp3 09/24 03:12 Order name: Basic Metabolic Panel EDMS 09/24 03:12 Order name: Basic Metabolic Panel EDMS 09/24 03:12 Order name: CBC with Automated Diff EDMS 09/24 03:12 Order name: CBC with Automated Diff EDMS 09/24 03:12 Order name: Troponin High Sensitivity EDMS 09/24 03:12 Order name: Troponin High Sensitivity EDMS 09/24 03:12 Order name: Troponin High Sensitivity EDMS 09/24 03:12 Order name: Troponin High Sensitivity EDMS 09/24 03:12 Order name: Troponin High Sensitivity EDMS 09/24 03:12 Order name: Echo with Doppler EDMS 09/24 00:48 Order name: EKG; Complete Time: 00:49 sp3 09/24 03:12 Order name: EKG Electrocardiogram EDMS 09/24 03:12 Order name: EKG Electrocardiogram EDMS 09/24 03:12 Order name: EKG Electrocardiogram EDMS 09/24 03:12 Order name: EKG Electrocardiogram EDMS 09/24 00:48 Order name: EKG - Nurse/Tech; Complete Time: 00:52 sp3 09/24 00:50 Order name: Cardiac monitoring; Complete Time: 00:52 sp3 09/24 00:50 Order name: IV Saline Lock; Complete Time: 00:52 sp3 09/24 00:50 Order name: Labs collected and sent; Complete Time: 00:53 sp3 09/24 00:50 Order name: O2 Sat Monitoring; Complete Time: 00:53 sp3 Administered Medications: 00:52 Drug: cloNIDine PO 0.2 mg PO once Route: PO; bm8 01:17 Follow up: Response: No adverse reaction bm8 02:16 Drug: Aspirin PO Chewable Tablet 324 mg PO once; 81 mg tablets x 4 Route: PO; cp4 02:16 Follow up: Response: No adverse reaction cp4 Disposition Summary: 09/24/25 01:57 Hospitalization Ordered Notes: Hospitalization Status: Inpatient Admission sp3 Provider: Leonardo Montiel3 Location: Telemetry/MedSurg (Inpatient) sp3 Condition: Stable sp3 Problem: an acute exacerbation sp3 Symptoms: have worsened sp3 Bed/Room Type: Standard sp3 Room Assignment: 414(09/24/25 03:15) kl Diagnosis - Hypertensive urgency, NSTEMI sp3 Forms: - Medication Reconciliation Form sp3 - SBAR form sp3 - Leadership Thank You Letter sp3 Signatures: Dispatcher [employer] EDMS Danika Martins RN RN Angela Hennessy MD MD sp3 Joan Baca cp4 Kaiden Kidd RN RN bm8 Ashley Tavares RN RN br2 Corrections: (The following items were deleted from the chart) 00:50 00:50 BASIC METABOLIC PANEL+C.LAB.BRZ ordered. EDMS EDMS 00:50 00:50 CBC+H.LAB.BRZ ordered. EDMS EDMS 00:50 00:50 MAGNESIUM+C.LAB.BRZ ordered. EDMS EDMS 00:50 00:50 PROBNP+C.LAB.BRZ ordered. EDMS EDMS 00:50 00:50 Troponin High Sensitivity+C.LAB.BRZ ordered. EDMS EDMS 03:15 01:57 sp3 kl
--- NOTE | 2025-09-24 01:57 | ER ---
Nurse's Notes [facility] Name: Benjamin Jackson Age: 74 yrs Sex: Male : 1950 Arrival Date: 09/24/2025 Time: 00:30 Bed 5 Private MD: Diagnosis: Hypertensive urgency, NSTEMI Presentation: 09/24 00:51 Chief complaint: Patient states: PT STATES HE CHECKED HIS B/P PRIOR TO TAKING MEDS. PT br2 WAS TOLD TO GO TO ER IF IT WAS ELEVATED. PT DENIES ANY PAIN AT THIS TIME. Coronavirus screen: Client denies travel out of the [place] in the last 14 days. Ebola Screen: Patient denies exposure to infectious person. Initial Sepsis Screen: Does the patient meet any 2 criteria? No. Patient's initial sepsis screen is negative. Does the patient have a suspected source of infection? No. Patient's initial sepsis screen is negative. Risk Assessment: Do you want to hurt yourself or someone else? Patient reports no desire to harm self or others. Onset of symptoms is unknown. 00:51 Method Of Arrival: Ambulatory br2 00:51 Acuity: SANJIV 3 br2 Triage Assessment: 00:53 General: Appears in no apparent distress. comfortable, Behavior is calm, cooperative. br2 Pain: Denies pain. Historical: - Allergies: 00:53 Iodine; br2 - PMHx: 00:53 constipation (leg); Hernia; Hypertensive disorder; Kidney stones; Myocardial infarction;br2 - PSHx: 00:53 cardiac stents; leg; br2 - Immunization history:: Adult Immunizations not up to date. - Infectious Disease History:: Denies. - Social history:: Smoking status: Patient reports the use of cigarette tobacco products, smokes one pack cigarettes per day. Patient/guardian denies using alcohol, street drugs. Screenin:01 [facility] ED Fall Risk Assessment (Adult) History of falling in the last 3 months, bm8 including since admission No falls in past 3 months (0 pts) Confusion or Disorientation No (0 pts) Intoxicated or Sedated No (0 pts) Impaired Gait No (0 pts) Mobility Assist Device Used No (0 pt) Altered Elimination No (0 pt) Score/Fall Risk Level 0 - 2 = Low Risk Oriented to surroundings, Maintained a safe environment, Educated pt \T\ family on fall prevention, incl call for assistance when getting out of bed, Assessed \T\ reinforced patient's understanding of fall precautions, Hourly rounding (assess needs \T\ fall precautionary measures) done, Used ambulatory aids as needed (educated on \T\ assisted with), Used gait belt as appropriate. Abuse screen: Denies threats or abuse. Nutritional screening: No deficits noted. Tuberculosis screening: No symptoms or risk factors identified. Assessment: 01:18 Reassessment: Patient appears in no apparent distress at this time. Patient and/or bm8 family updated on plan of care and expected duration. Pain level reassessed. Patient is alert, oriented x 3, equal unlabored respirations, skin warm/dry/pink. Patient denies pain at this time. Patient states feeling better. Patient states symptoms have improved. 03:21 Reassessment: Patient appears in no apparent distress at this time. Patient and/or bm8 family updated on plan of care and expected duration. Pain level reassessed. Patient is alert, oriented x 3, equal unlabored respirations, skin warm/dry/pink. Patient denies pain at this time. Patient states feeling better. Patient states symptoms have improved. Vital Signs: 00:51 BP 207 / 98; Pulse 56; Resp 18; Temp 97.1; Pulse Ox 100% ; Weight 54.57 kg; Height 5 br2 ft. 6 in. ; Pain 0/10; 01:18 BP 169 / 82; Pulse 54; Resp 15; Temp 97.1; Pulse Ox 100% ; Pain 0/10; bm8 01:46 BP 124 / 77; Pulse 54; Resp 16; Pulse Ox 97% ; cp4 03:21 BP 131 / 77; Pulse 56; Resp 17; Temp 97.1; Pulse Ox 98% on R/A; Pain 0/10; bm8 00:51 Body Mass Index 19.42 (54.57 kg, 167.64 cm) br2 00:51 Pain Scale: Adult br2 01:18 Pain Scale: Adult bm8 03:21 Pain Scale: Adult bm8 [place] Coma Score: 01:18 Eye Response: spontaneous(4). Motor Response: obeys commands(6). Verbal Response: bm8 oriented(5). Total: 15. 03:21 Eye Response: spontaneous(4). Motor Response: obeys commands(6). Verbal Response: bm8 oriented(5). Total: 15. ED Course: 00:36 Patient arrived in ED. gm2 00:36 Angela Lynne MD is Attending Physician. sp3 00:49 Kaiden Kidd, RN is Primary Nurse. bm8 00:53 Triage completed. br2 00:53 Arm band placed on right wrist. br2 01:01 Patient has correct armband on for positive identification. Bed in low position. Call bm8 light in reach. Side rails up X 1. Adult w/ patient. Door closed. Noise minimized. Pillow given. Verbal reassurance given. Head of bed elevated. 01:01 No provider procedures requiring assistance completed. Initial lab(s) drawn, by me, bm8 sent to lab. EKG done, by ED staff, reviewed by Angela Lynne MD. Inserted saline lock: 20 gauge in left forearm, using aseptic technique. Blood collected. Flushed with 10 mL NS. 01:57 Leonardo Montiel MD is Hospitalizing Provider. sp3 03:21 Provided Education on: need for admission. bm8 03:21 Patient admitted, IV remains in place. bm8 Administered Medications: 00:52 Drug: cloNIDine PO 0.2 mg PO once Route: PO; bm8 01:17 Follow up: Response: No adverse reaction bm8 02:16 Drug: Aspirin PO Chewable Tablet 324 mg PO once; 81 mg tablets x 4 Route: PO; cp4 02:16 Follow up: Response: No adverse reaction cp4 Medication: 01:01 VIS not applicable for this client. bm8 Outcome: 01:57 Decision to Hospitalize by Provider. sp3 03:21 Admitted to Tele accompanied by nurse, via wheelchair, room 414, Report called to denilson Birch rn 03:21 Condition: stable 03:21 Instructed on follow up and referral plans. the need for admit, Demonstrated understanding of instructions, follow-up care, medications, 03:26 Patient left the ED. bm8 Signatures: Angela Lynne MD MD sp3 Joan Baca cp4 Selene Ball gm2 Kaiden Kidd, RN RN bm8 Ashley Tavares RN RN br2
[2025-09-24] MEDS ORDERED: ASPIRIN 81 MG CHEWABLE TABLET ONE (02:13)
[2025-09-24] MEDS ORDERED: MORPHINE 2 MG/ML SYR IV PRN (03:05)
[2025-09-24] MEDS: ASPIRIN 325 MG TAB PO ONE (03:05)
[2025-09-24] MEDS ORDERED: NITROGLYCERIN 0.4 MG/TAB SL PRN (03:05)
--- NOTE | 2025-09-24 03:13 | P.HP ---
Certification for Inpatient Patient admitted to: Observation With expected LOS: <2 Midnights Patient will require the following post-hospital care: None Practitioner: I am a practitioner with admitting privileges, knowledge of patient current condition, hospital course, and medical plan of care. Services: Services provided to patient in accordance with Admission requirements found in Title 42 Section 412.3 of the Code of Federal Regulations Patient History Date of Service: 09/24/25 Reason for admission: Hypertensive urgency, NSTEMI. History of Present Illness: Patient is a 74-year-old male with past medical history of constipation, hernia, essential hypertension, kidney stones, myocardial infarction in May/2024 with stents placement x 2, bradycardia. Patient presents to ER today complaining of elevated blood pressure,patient states he has a habit of always checking his blood pressure in the morning and at night before taking his blood pressure medications, states when he checked his blood pressure around 11:30 PM tonight, it was 196/100, states he rechecked it twice and it was still elevated, and he decided to report to ER because he was instructed to report to ER in case his blood pressure is elevated. Upon arrival to ER, patient blood pressure was elevated, he received clonidine 0.2 mg p.o., and his home lisinopril 10 mg with positive results. Patient denies of any associated chest pain, shortness of breath, nausea or vomiting, headaches, palpitations, or any discomfort at this time. Patient workup in the ER, with troponin of 280.6, BNP 769, EKG with no ST elevation. On admission assessment, patient was fully awake, alert and oriented x 3, denies of any associated chest pain at this time or shortness of breath. Patient blood pressure appears stable at this time, patient is bradycardia in the mid 40s to 50s and asymptomatic. Allergies Iodinated Contrast Media Allergy (Verified 12/19/24 19:31) Rash Iodine-Iodine Containing Allergy (Uncoded 12/19/24 19:29) Rash Home Medications: Aspirin [Aspirin EC 81 MG] 81 mg PO DAILY #360 tab 06/13/24 Atorvastatin Calcium [Lipitor] 40 mg PO BEDTIME 30 Days #30 tab 12/21/24 Clopidogrel Bisulfate [Plavix*] 75 mg PO DAILY 06/23/25 Levothyroxine Sodium 25 mcg PO DAILY 06/23/25 Carvedilol [Coreg] 3.125 mg PO BID 30 Days #60 tab 06/25/25 lisinopriL [Prinivil*] 10 mg PO 10 30 Days #30 tab 06/25/25 - Past Medical/Surgical History Diabetic: No -: Hypertension on lisinopril -: kidney stones -: hernia -: Myocardial infarction with stents placement x 2- May/2024 -: Constipation. -: Bradycardia. -: PCI x2 with 2 stents -: right thigh surg with plate -: Right leg surgery. - Family History Brother -: Cancer Father -: Cancer - Social History Smoking Status: Current every day smoker (Patient states he does not smoke cigarettes but uses tobacco.) Alcohol use: No CD- Drugs: No Caffeine use: No Place of Residence: Home Review of Systems 10-point ROS is otherwise unremarkable Cardiovascular: Other (Hypertension.) Physical Examination - Physical Exam General: Alert, In no apparent distress, Oriented x3, Cooperative HEENT: Atraumatic, Normocephalic, PERRLA, Mucous membr. moist/pink, Sclerae nonicteric Neck: Supple, 2+ carotid pulse no bruit, JVD not distended, No Thyromegaly, No LAD, Without JVD or thyroid abnormality Respiratory: Clear to auscultation bilaterally, Normal air movement Cardiovascular: No edema, Normal pulses, Regular rate/rhythm, Normal S1 S2, No gallops, No rubs, Systolic murmur Capillary refill: <2 Seconds Gastrointestinal: Normal bowel sounds, Soft and benign, Non-distended, W/out hepatomegaly, No ascites, No tenderness, No masses, No rebound, No guarding Musculoskeletal: No clubbing, No swelling, No contractures, No erythema, No tenderness, No warmth Integumentary: No rashes, No breakdown, No significant lesion, No tenderness/swelling, No erythema, No warmth, No cyanosis Neurological: Normal gait, Normal speech, Normal strength at 5/5 x4 extr, Normal tone, Sensation intact, Cranial nerves 3-12 intact, Normal reflexes 2+, Normal affect Lymphatics: No axilla or inguinal lymphadenopathy - Studies Laboratory Data (last 24 hrs) 09/24/25 09/24/25 00:58 00:58 WBC 6.20 Hgb 12.3 L Hct 36.1 L Plt Count 189 Sodium 138 Potassium 4.1 BUN 13 Creatinine 1.22 Glucose 92 Magnesium 1.9 Male Exam - Male Exam Inguinal exam: No hernias Assessment and Plan Discharge Plan: Home Plan to discharge in: 48 Hours - Advance Directives Does patient have a Living Will: No Does patient have a Durable POA for Healthcare: No - Code Status/Comfort Care Code Status Assessed: Yes Code Status: Full Code Critical Care: No Time Spent Managing Pts Care (In Minutes): 55
--- NOTE | 2025-09-24 04:02 | P.HP ---
Certification for Inpatient Patient admitted to: Observation With expected LOS: <2 Midnights Practitioner: I am a practitioner with admitting privileges, knowledge of patient current condition, hospital course, and medical plan of care. Services: Services provided to patient in accordance with Admission requirements found in Title 42 Section 412.3 of the Code of Federal Regulations Patient History Date of Service: 09/24/25 Reason for admission: Hypertensive urgency, NSTEMI. History of Present Illness: Patient is a 74-year-old male with past medical history of constipation, hernia, essential hypertension, kidney stones, myocardial infarction in May/2024 with stents placement x 2, bradycardia. Patient presents to ER today complaining of elevated blood pressure,patient states he has a habit of always checking his blood pressure in the morning and at night before taking his blood pressure medications, states when he checked his blood pressure around 11:30 PM tonight, it was 196/100, states he rechecked it twice and it was still elevated, and he decided to report to ER because he was instructed to report to ER in case his blood pressure is elevated. Upon arrival to ER, patient blood pressure was elevated, he received clonidine 0.2 mg p.o., and his home lisinopril 10 mg with positive results. Patient denies of any associated chest pain, shortness of breath, nausea or vomiting, headaches, palpitations, or any discomfort at this time. Patient workup in the ER, with troponin of 280.6, BNP 769, EKG with no ST elevation. On admission assessment, patient was fully awake, alert and oriented x 3, denies of any associated chest pain at this time or shortness of breath. Patient blood pressure appears to be under control at this time, patient is bradycardia in the mid 40s to 50s and asymptomatic. Allergies Iodinated Contrast Media Allergy (Verified 12/19/24 19:31) Rash Iodine-Iodine Containing Allergy (Uncoded 12/19/24 19:29) Rash Home Medications: Aspirin [Aspirin EC 81 MG] 81 mg PO DAILY #360 tab 06/13/24 Atorvastatin Calcium [Lipitor] 40 mg PO BEDTIME 30 Days #30 tab 12/21/24 Clopidogrel Bisulfate [Plavix*] 75 mg PO DAILY 06/23/25 Levothyroxine Sodium 25 mcg PO DAILY 06/23/25 Carvedilol [Coreg] 3.125 mg PO BID 30 Days #60 tab 06/25/25 lisinopriL [Prinivil*] 10 mg PO 10 30 Days #30 tab 06/25/25 - Past Medical/Surgical History Diabetic: No -: Hypertension on lisinopril -: kidney stones -: hernia -: Myocardial infarction with stents placement x 2- May/2024 -: Constipation. -: Bradycardia. -: PCI x2 with 2 stents -: right thigh surg with plate -: Right leg surgery. - Family History Brother -: Cancer Father -: Cancer - Social History Smoking Status: Current every day smoker (Patient states he does not smoke cigarettes but uses tobacco.) Alcohol use: No CD- Drugs: No Caffeine use: No Place of Residence: Home Review of Systems 10-point ROS is otherwise unremarkable Cardiovascular: Other (Elevated blood pressure) Physical Examination - Vital Signs Temperature: 97.1 F Blood Pressure: 131/77 Pulse: 56 Respirations: 17 - Physical Exam General: Alert, In no apparent distress, Oriented x3, Cooperative HEENT: Atraumatic, Normocephalic, PERRLA, Mucous membr. moist/pink, Sclerae nonicteric Neck: Supple, 2+ carotid pulse no bruit, JVD not distended, No Thyromegaly, No LAD, Without JVD or thyroid abnormality Respiratory: Clear to auscultation bilaterally, Normal air movement Cardiovascular: No edema, Normal pulses, Regular rate/rhythm (Bradycardia), Norm al S1 S2, No gallops, No rubs, Systolic murmur Capillary refill: >2 Seconds Gastrointestinal: Soft and benign, Non-distended, W/out hepatomegaly, No a scites, No tenderness, No masses, No rebound, No guarding Musculoskeletal: No clubbing, No swelling, No contractures, No erythema, No tenderness, No warmth Integumentary: No rashes, No breakdown, No significant lesion, No tenderness/swelling, No erythema, No warmth, No cyanosis Neurological: Normal gait, Normal speech, Normal strength at 5/5 x4 extr, Normal tone, Sensation intact, Cranial nerves 3-12 intact, Normal reflexes 2+, Normal affect Lymphatics: No axilla or inguinal lymphadenopathy - Studies Laboratory Data (last 24 hrs) 09/24/25 09/24/25 00:58 00:58 WBC 6.20 Hgb 12.3 L Hct 36.1 L Plt Count 189 Sodium 138 Potassium 4.1 BUN 13 Creatinine 1.22 Glucose 92 Magnesium 1.9 Male Exam - Male Exam Inguinal exam: No hernias Assessment and Plan - Plan Patient reports to ER complaining of elevated blood pressure with no associated chest pain or shortness of breath. Incidental finding of elevated troponin of 280.6, BNP 769. Assessment and Plan. (1)Hypertensive urgency/NSTEMI. Patient received clonidine 0.2 mg p.o., lisinopril 10 mg in ER, blood pressure control at this time. Patient has a possible AL 2 leak in troponin with no associated chest pain. Troponin is 280.6. -Will hold on nicardipine infusion at this time since patient blood pressure appears to be under control after receiving medications as noted above in ER. Will continue to monitor. -Resume lisinopril 10 mg p.o. daily. -Hydralazine 10 mg IV as needed every 6 hours. -Will hold patient carvedilol at this time patient is bradycardia in the more 40s-50s. -Consult skein winder. -O2 3 L titrate according to patient demand. -Order aspirin 325 mg p.o. x 1, follow with daily dose of 81 mg. -Morphine 2 mg as needed every 4 hours, nitroglycerin 0.4 mg sublingual as needed every 5 minutes x 3, in case patient develops any chest pain. Patient has history of myocardial infarction in May/2024 with stent placement x 2. -Order echocardiogram in the morning. -Serial troponin to monitor trending. -EKG every 8 x 3 -Order initial dose of Lovenox 40 mg subcu now, and daily. -Continue Plavix 75 mg p.o. daily,. Patient has history of stent placement x 2 in May 2024. (2) chronic hypercholesterolemia. -Continue atorvastatin 40 mg p.o. daily. (3) chronic hypothyroidism. -Continue levothyroxine 25 mcg p.o. daily. Discharge Plan: Home Plan to discharge in: 48 Hours - Advance Directives Does patient have a Living Will: No Does patient have a Durable POA for Healthcare: No - Code Status/Comfort Care Code Status Assessed: Yes Code Status: Full Code Critical Care: No Time Spent Managing Pts Care (In Minutes): 55
[2025-09-24] MEDS: ENOXAPARIN 40 MG/0.4 ML SQ ONE (04:10)
[2025-09-24 04:45] VITALS: BMI 19.4
[2025-09-24] MEDS: LEVOTHYROXINE SOD 0.025 MG TAB PO SCH (06:38)
[2025-09-24] MEDS ORDERED: FLU (Fluarix) 25-26 (6MOS UP)/PF 45 MCG/0.5 ML Syringe IM ONE (07:30)
[2025-09-24] MEDS: ENOXAPARIN 40 MG/0.4 ML SQ SCH (08:23)
[2025-09-24] MEDS: ASPIRIN EC 81 MG TAB PO SCH (08:23)
--- NOTE | 2025-09-24 11:45 | P.PN ---
Date of Service: 09/24/25 Subjective: denies chest pain or shortness of breath Physical Exam: GEN: Alert, oriented, NAD CV: Regular rate and rhythm, no edema Pulm:Nonlabored respirations on room air, clear bilaterally ABD: soft, nontender, nondistended Neuro: Normal speech, normal affect Problem List: NSTEMI, suspect trop leak Hypertensive Urgency Hx CAD s/p PCIx2 (2023) Hx bradycardia on admission, presents to ED after checking blood pressure at home and noticed it was in 190/100s Asymptomatic during episode. Denies chest pain, dizziness, or SOB. Denies recent changes in home medications. Troponins mildly elevated but trended flat Troponins are chronically elevated. Improved compared to prior labs likely demand ischemia from HTN urgency CXR negative. EKG okay. Monitor on telemetry. Cardiology consulted on admission continue coreg consider adding daily lisinopril low dose pt states he takes 10mg lisinopril as needed for SBP> 140, has to do this ~2-3x/month states when takes coreg and lisinopril regularly together, his BP drops <90-100 systolic Echo ordered to eval EF / stenosis BP improved after restarting on home antihypertensives continue home asa 81mg lisinopril, statin. VTE: Lovenox Code: Full Dispo: Home, ~24hrs tomorrow if BP ok Time Spent Managing Pts Care (In Minutes): 55
--- NOTE | 2025-09-24 12:52 | P.CNS ---
Date of Consult: 09/24/25 Chief Complaint: Hypertensive urgency, NSTEMI. History of Present Illness: Patient with PMH of CAD s/p stents placement, HTN, presented with high BP, denies chest pain, no palpitations, no syncope Allergies Iodinated Contrast Media Allergy (Verified 12/19/24 19:31) Rash Iodine-Iodine Containing Allergy (Uncoded 12/19/24 19:29) Rash Home medications list reviewed: Yes Home Medications: Aspirin [Aspirin EC 81 MG] 81 mg PO DAILY #360 tab 06/13/24 Clopidogrel Bisulfate [Plavix*] 75 mg PO DAILY 06/23/25 Amlodipine Besylate 5 mg PO DAILY 09/24/25 Atorvastatin Calcium [Lipitor] 80 mg PO BEDTIME 09/24/25 Carvedilol [Coreg] 6.125 mg PO BID 09/24/25 Ezetimibe 10 mg PO DAILY 09/24/25 Levothyroxine Sodium 25 mcg PO DAILY 09/24/25 Loratadine 10 mg PO DAILY 09/24/25 Omeprazole 20 mg PO DAILY 09/24/25 - Past Medical/Surgical History Diabetic: No -: Hypertension on lisinopril -: kidney stones -: hernia -: Myocardial infarction with stents placement x 2- May/2024 -: Constipation. -: Bradycardia. -: PCI x2 with 2 stents -: right thigh surg with plate -: Right leg surgery. - Family History Brother Medical History: Cancer Father Medical History: Cancer - Social History Smoking Status: Current every day smoker Alcohol use: No CD- Drugs: No Caffeine use: No Place of Residence: Home Review of Systems 10-point ROS is otherwise unremarkable Physical Examination Temp Pulse Resp BP Pulse Ox 97.6 F 52 16 106/66 99 09/24/25 12:00 09/24/25 12:00 09/24/25 12:00 09/24/25 12:00 09/24/25 12:00 General: Alert, In no apparent distress HEENT: Atraumatic, PERRLA, Mucous membr. moist/pink, EOMI, Sclerae nonicteric Neck: Supple, 2+ carotid pulse no bruit, No LAD, Without JVD or thyroid abnormality Respiratory: Clear to auscultation bilaterally, Normal air movement Cardiovascular: Regular rate/rhythm, Normal S1 S2 Gastrointestinal: Normal bowel sounds, No tenderness Musculoskeletal: No tenderness Integumentary: No rashes Neurological: Normal gait, Normal speech, Normal tone, Normal affect Lymphatics: No axilla or inguinal lymphadenopathy Laboratory Data (last 24 hrs) 09/24/25 09/24/25 00:58 00:58 WBC 6.20 Hgb 12.3 L Hct 36.1 L Plt Count 189 Sodium 138 Potassium 4.1 BUN 13 Creatinine 1.22 Glucose 92 Magnesium 1.9 - Problems (1) HLD (hyperlipidemia) Current Visit: No Status: Acute Plan: continue lipitor 40 mg daily (2) HTN (hypertension) Current Visit: No Status: Acute Plan: continue coreg 6.25 mg po BID Lower down lisinopril to 5 mg daily continue to monitor (3) NSTEMI (non-ST elevated myocardial infarction) Current Visit: No Status: Acute Plan: mild elevated troponin with no significant delta, patient is chest pain free. this is most likely type 2 [place] from HTN urgency continue ASA 81 mg daily continue Plavix 75 mg daily continue Lipitor 40 mg daily
[2025-09-24] MEDS: ATORVASTATIN 40 MG TAB PO SCH (20:15)
[2025-09-25] MEDS: HYDRALAZINE HCL 20 MG/ML VIAL IV PRN (00:54)
[2025-09-25 07:38] LABS: Absolute Lymphocytes (CBC) 1.4 K/uL (0.7-4.9); Hematocrit 38.6 % (39.6-49.0); Hemoglobin 13.3 g/dL (13.6-17.9); MCH 32.8 pg (27.0-35.0); MCHC 34.5 g/dL (32.0-36.0); MCV 95.1 fL (80-100); MPV 6.6 fL (7.6-11.3); Nucleated RBC Absolute Count 0.0 (0-0); Nucleated Red Blood Cells % 0.1 % (0-0); RBC Red Blood Cell Count 4.06 M/uL (4.33-5.43); White Blood Count 6.30 thou/uL (4.3-10.9)
[2025-09-25 07:41] VITALS: O2SAT 94
[2025-09-25 07:56] LABS: Anion Gap 9.1 mEq/L (5.0-15.0); BUN Blood Urea Nitrogen 12.0 mg/dL (7-18); Glucose Level 88.0 mg/dL (74-106); Potassium 4.1 mEq/L (3.5-5.1)
[2025-09-25] MEDS: CLOPIDOGREL 75 MG TABLET PO SCH (08:38)
--- NOTE | 2025-09-25 11:50 | P.PN ---
Subjective Date of Service: 09/25/25 Chief Complaint: Hypertensive urgency, NSTEMI. Subjective: No new changes, No C/O voiced, Tolerating diet, Ambulating, Improving Review of Systems 10-point ROS is otherwise unremarkable Physical Examination - Vital Signs Temperature: 97.9 F Blood Pressure: 118/70 Pulse: 67 Respirations: 18 Pulse Ox (%): 98 - Physical Exam General: Alert, In no apparent distress HEENT: Atraumatic, PERRLA, EOMI Neck: Supple, JVD not distended Respiratory: Clear to auscultation bilaterally, Normal air movement Cardiovascular: Regular rate/rhythm, Normal S1 S2 Gastrointestinal: Normal bowel sounds, No tenderness Musculoskeletal: No tenderness Integumentary: No rashes Neurological: Normal speech, Normal tone, Normal affect Lymphatics: No axilla or inguinal lymphadenopathy - Studies Medications List Reviewed: Yes Assessment And Plan - Current Problems (Diagnosis) (1) HLD (hyperlipidemia) Current Visit: No Status: Acute Plan: continue lipitor 40 mg daily (2) HTN (hypertension) Current Visit: No Status: Acute Plan: d/c Coreg due to bradycardia continue lisinopril 10 mg daily continue to monitor (3) NSTEMI (non-ST elevated myocardial infarction) Current Visit: No Status: Acute Plan: mild elevated troponin with no significant delta, patient is chest pain free. this is most likely type 2 [place] from HTN urgency continue ASA 81 mg daily continue Plavix 75 mg daily continue Lipitor 40 mg daily
--- NOTE | 2025-09-25 14:29 | P.DS ---
Admission Date: 09/24/25 Discharge Date: 09/25/25 Disposition: ROUTINE DISCHARGE Discharge Condition: FAIR Reason for Admission: Hypertensive urgency, NSTEMI. Hospital Course: Problem List: NSTEMI, suspect trop leak Hypertensive Urgency Hx CAD s/p PCIx2 (2023) Hx bradycardia Patient presents to the ED after checking his blood pressure at home and noted it was elevated in the 190/100s. Patient asymptomatic during episode. Patient denied any chest pain, dizziness, or shortness of breath. He denied any recent change in home medications. Chest xray was negative for any acute findings. EKG was without ST changes. Troponins were noted to be mildly elevated but trended flat. On further review, patient is noted to have chronically elevated troponin and values this hospitalization were improved compared to prior troponins a few months ago. Cardiology Dr. Houston was consulted and felt there was no findings to warrant further inpatient testing and recommended patient follow up in office in a few weeks for further management. Patient was restarted on his home antihypertensive regimen and lisinopril added. Coreg was discontinued due bradycardia according to Cardiology Dr. Houston recommendation. Blood pressure stabilized. Patient was feeling better, close to his baseline self, and deemed stable for discharge. Vital Signs/Physical Exam: Temp Pulse Resp BP Pulse Ox 97.9 F 67 18 118/70 98 09/25/25 11:49 09/25/25 11:49 09/25/25 11:49 09/25/25 11:49 09/25/25 11:49 General: Alert, In no apparent distress, Oriented x3 HEENT: Mucous membr. moist/pink, Sclerae nonicteric Neck: Supple, JVD not distended Respiratory: Clear to auscultation bilaterally, Normal air movement Cardiovascular: No edema, Regular rate/rhythm, Normal S1 S2 Gastrointestinal: Normal bowel sounds, Soft and benign, Non-distended, No tenderness Musculoskeletal: No swelling Integumentary: No rashes, No cyanosis Neurological: Normal strength at 5/5 x4 extr Laboratory Data at Discharge: WBC 6.30 thou/uL (4.3-10.9) 09/25/25 07:06 Hgb 13.3 g/dL (13.6-17.9) L 09/25/25 07:06 Hct 38.6 % (39.6-49.0) L 09/25/25 07:06 Plt Count 199 thou/uL (152-406) 09/25/25 07:06 Sodium 136 mEq/L (136-145) 09/25/25 07:06 Potassium 4.1 mEq/L (3.5-5.1) 09/25/25 07:06 BUN 12 mg/dL (7-18) 09/25/25 07:06 Creatinine 1.11 mg/dL (0.70-1.30) 09/25/25 07:06 Glucose 88 mg/dL (74-106) 09/25/25 07:06 Magnesium 1.9 mg/dL (1.6-2.4) 09/24/25 00:58 Home Medications: Aspirin [Aspirin EC 81 MG] 81 mg PO DAILY #360 tab 06/13/24 Clopidogrel Bisulfate [Plavix*] 75 mg PO DAILY 06/23/25 Amlodipine Besylate 5 mg PO DAILY 09/24/25 Atorvastatin Calcium [Lipitor] 80 mg PO BEDTIME 09/24/25 Ezetimibe 10 mg PO DAILY 09/24/25 Levothyroxine Sodium 25 mcg PO DAILY 09/24/25 Loratadine 10 mg PO DAILY 09/24/25 Omeprazole 20 mg PO DAILY 09/24/25 lisinopriL [Prinivil*] 10 mg PO DAILY #30 tab 09/25/25 New Medications: lisinopriL [Prinivil*] 10 mg PO DAILY #30 tab Physician Discharge Instructions: Physician discharge instructions: Patient presents to the ED after checking his blood pressure at home and noted it was elevated in the 190/100s. Patient asymptomatic during episode. Patient denied any chest pain, dizziness, or shortness of breath. He denied any recent change in home medications. Chest xray was negative for any acute findings. EKG was without ST changes. Tr oponins were noted to be mildly elevated but trended flat. On further review, patient is noted to have chronically elevated troponin and values this hospitalization were improved compared to prior troponins a few months ago. Cardiology was consulted and felt there was no findings to warrant further inpatient testing and recommended patient follow up in office in a few weeks for further management. Patient was restarted on his home antihypertensive regimen and and lisinopril added. Blood pressure stabilized. Patient was feeling better, close to his baseline self, and deemed stable for discharge. New medication: Lisinopril 20 mg daily Follow up: PCP 3-5 days Please call to schedule / confirm appointments Diet: AHA Activity: Ad french [facility] [Primary Care Provider] - Time spent managing pt's care (in minutes): 32
[2025-09-25 14:37] VITALS: BP 132/67; TEMP 97.8
== END 2025-09-25 14:57 | disposition home or self-care (01) ==
LOC: ER 00:30 → 4TH 03:02
PROVIDERS: ADMIT Hospitalist; ATTEND Internal Medicine
DX: I21.4 Non-ST elevation (NSTEMI) myocardial infarction (principal); I16.0 Hypertensive urgency; E78.00 Pure hypercholesterolemia, unspecified; E03.9 Hypothyroidism, unspecified; I25.10 Atherosclerotic heart disease of native coronary artery without angina pectoris; I25.2 Old myocardial infarction; F17.210 Nicotine dependence, cigarettes, uncomplicated
CPT/HCPCS: 93005; 93306; 85025 ×2; 80048 ×2; 36415 ×2; 83735; 84484 ×5; 83880; 99285; J0360; J1650 ×3; G0378